=== PATIENT | male | born 1950 | race Caucasian/White ===

== ENCOUNTER 2018-12-16 07:19 | Outpatient (CLI) | payer MEDICARE, SELFPAY ==
--- NOTE | 2018-12-16 | ECHO_ITS ---
Patient Info Name: Del Schmitz Age: 68 years : 1950 Gender: Male Ht: 72 in Wt: 250 lbs BSA: 2.44 m2 HR: 66 bpm BP: 160 / 83 mmHg Technical Quality: Good Exam Date: 12/16/2018 8:01 AM Exam Location: [facility] Patient Status: Outpatient Admit Date: 12/16/2018 Staff Ordering Physician: Annamaira Rojas MD Machine Splitter: Emili Raymond RDCS Attending Provider: Annamaria Rojas MD Referring Physician: Crystal FROST; Exam Type: CA echo doppler color flow Study Info Indications R06.00 - Dyspnea, unspecified Complete two-dimensional, color flow and Doppler transthoracic echocardiogram is performed. Summary 1. Left ventricular chamber dimension is normal. 2. Left ventricular systolic function is normal, estimated at 65-70%. 3. There is mildly increased left ventricular wall thickness. 4. The left ventricular diastolic function is normal. 5. E/e' 9 is minimally elevated. 6. Global longitudinal strain is abnormal at -13.6%. 7. Left atrial chamber dimension is mildly enlarged. 8. There is mild mitral valve regurgitation. 9. There is trace tricuspid valve regurgitation. 10. No pulmonary hypertension, estimated pulmonary arterial systolic pressure is 26 mmHg. 11. There is trace pulmonic regurgitation. Left Ventricle E/e' 9 is minimally elevated. Global longitudinal strain is abnormal at -13.6%. Left ventricular chamber dimension is normal. Left ventricular systolic function is normal, estimated at 65-70%. There is mildly increased left ventricular wall thickness. The left ventricular diastolic function is normal. Right Ventricle Right ventricular chamber dimension is normal. Right ventricular systolic function is normal. Left Atria Left atrial chamber dimension is mildly enlarged. Right Atria Right atrial chamber dimension is normal. Aortic Valve The aortic valve is trileaflet. There is no aortic valve stenosis. There is no aortic valve regurgitation. Pulmonic Valve There is trace pulmonic regurgitation. Mitral Valve There is no mitral valve stenosis. There is mild mitral valve regurgitation. Tricuspid Valve There is trace tricuspid valve regurgitation. No pulmonary hypertension, estimated pulmonary arterial systolic pressure is 26 mmHg. Pericardium/Pleural There is no pericardial effusion. Inferior Vena Cava Normal inferior vena cava with >50% collapse upon inspiration consistent with normal right atrial pressure, 5 mmHg. Aorta The aortic root size at the sinus of Valsalva is normal. Left Ventricular Outflow Tract Name Value Normal LVOT 2D LVOT Diameter 2.0 cm LVOT Doppler LVOT Peak Gradient 7 mmHg LVOT Mean Gradient 4 mmHg LVOT VTI 24 cm LVOT VTI/AV VTI Ratio 0.9 LVOT Stroke Volume 78 ml Pulmonic Valve Name Value Normal
[2018-12-16 08:44] VITALS: PULSE 68; O2SAT 96
[2018-12-16 08:48] VITALS: PULSE 82; O2SAT 92
[2018-12-16 08:50] VITALS: PULSE 86; O2SAT 93
[2018-12-16 08:57] VITALS: PULSE 69; O2SAT 95
--- NOTE | 2018-12-16 09:57 | HOMEO2EVAL ---
Home Oxygen Evaluation RC: Home Oxygen (O2) Evaluation Start: 12/16/18 09:49 Freq: ONCE Status: Active Protocol: RPE Activity Type Activity Date Activity User E-Sign Co-Sign Detail Recorded Client Recorded Date Recorded By Document 12/16/18 08:44 KRM [id number] 12/16/18 09:54 KRM Document 12/16/18 08:48 [email or web address] [id number] 12/16/18 09:54 KRM Document 12/16/18 08:50 [email or web address] [id number] 12/16/18 09:54 KRM Document 12/16/18 08:57 [email or web address] [id number] 12/16/18 09:54 KRM 12/16/18 12/16/18 12/16/18 08:44 08:48 08:50 Home O2 Evaluation Test Phase Resting Exercise Exercise Oxygen Delivery Room Air Room Air Room Air Pulse Oximetry (95-100 %) 96 92 L 93 L Pulse Rate (60-100 beats/min) 68 82 86 Activity Tolerance Good Good Ambulation Distance (feet) Treatment Charges O2 Evaluation 12/16/18 08:57 Home O2 Evaluation Test Phase Resting Oxygen Delivery Room Air Pulse Oximetry (95-100 %) 95 Pulse Rate (60-100 beats/min) 69 Activity Tolerance Good Ambulation Distance (feet) 250 Treatment Charges
--- NOTE | 2018-12-16 19:02 | WPDPFTINT ---
PFT Interpretation DOS: 12/16/2018 REASON FOR TESTING: COPD REQUESTING: DR. CABALLERO PULMONARY FUNCTION TESTS RESULTS ARE REPRODUCIBLE. SPIROMETRY: NORMAL FEV1, MILD DECREASE IN FVC 68%. NORMAL FEV1%. NO SIGNIFICANT CHANGE AFTER BRONCHODILATOR. LUNG VOLUMES: NORMAL TOTAL LUNG CAPACITY AND RESIDUAL VOLUME. MILD INCREASE IN RV/TLC RATIO CONSISTENT WITH AIR TRAPPING. NORMAL AIRWAY RESISTANCE. DIFFUSION: MODERATE DECREASE IN DLCO 58%. FLOW VOLUME LOOP: MILD SCOOPING OF THE EXPIRATORY LIMB. IMPRESSION: MILD OBSTRUCTIVE VENTILATORY IMPAIRMENT, MILD AIR TRAPPING AND MODERATE DIFFUSION IMPAIRMENT. NO CHANGE AFTER BRONCHODILATOR. LACK OF RESPONSE TO BRONCHODILATORS SHOULD NOT PRECLUDE USE IF CLINICALLY INDICATED. HANY CABALLERO MD
--- NOTE | 2018-12-20 10:17 | PCRCNOTE ---
NIOX/FENO NOT DONE AT TIME OF VISIT, MACHINE MALFUNCTIONING AT THE TIME
== END 2018-12-16 07:20 | disposition home or self-care (01) ==
PROVIDERS: PCP Internal Medicine; Visit Provider Internal Medicine Critical Care Medicine
DX: J44.9 Chronic obstructive pulmonary disease, unspecified (principal); R94.2 Abnormal results of pulmonary function studies; I34.0 Nonrheumatic mitral (valve) insufficiency
CPT/HCPCS: 93306; 94060; 94618; 94726; 94729

== ENCOUNTER 2019-06-04 07:26 | Inpatient (IN) | payer MEDICARE, SELFPAY ==
[2019-06-04] VITALS (20 sets, daily range): BP systolic 146–185; BP diastolic 59–90; PULSE 54–86; RESP 16–25; TEMP 36.1–36.4; O2SAT 95–99; BMI 34.7
--- NOTE | ~2019-06-04 | XR_ITS ---
EXAMINATION: XR chest 1V portable DATE: 06/06/2019 06:15 INDICATION: Pneumonia TECHNIQUE: frontal view of the chest was obtained. COMPARISON: Chest radiograph dated 06/04/2019 FINDINGS: No interval change in opacities at the bilateral lower lung zones, left greater than right. No pneumo thorax or definitive pleural effusion. Cardiomediastinal silhouette within normal limits accounting f or AP technique. IMPRESSION: 1. Unchanged opacities in the bilateral lower lung zones, left greater than right which could represe nt atelectasis or pneumonia. Reviewed, dictated and finalized at location A. IMPRESSION: 1. Unchanged opacities in the bilateral lower lung zones, left greater than rig ht which could represent atelectasis or pneumonia.
--- NOTE | ~2019-06-04 | US_ITS ---
EXAMINATION: US venous doppler LE EXAM DATE: 06/04/2019 15:54 INDICATION: Elevated d-dimer TECHNIQUE: Multiple grayscale, color flow and Doppler images of the lower extremity deep venous syste ms bilaterally were obtained and reviewed. Comparison is made to prior examination from 05/10/2015. FINDINGS: Right side: The right common femoral, femoral and profunda veins demonstrate normal color flow, respi ratory variation, augmentation and compressibility. Compressibility, color flow confirmed within the right popliteal, posterior tibial, peroneal, and greater saphenous veins. Left side: The left common femoral, femoral and profunda veins demonstrate normal color flow, respira tory variation, augmentation and compressibility. Compressibility, color flow confirmed within the l eft popliteal, posterior tibial, peroneal, and greater saphenous veins. IMPRESSION: 1. No lower extremity deep venous thrombosis bilaterally. Reviewed, dictated and finalized at location A.
--- NOTE | ~2019-06-04 | XR_ITS ---
XR chest 1V portable 06/04/2019 08:33 Indication: Cough, shortness of breath and low oxygen saturation. Procedure: AP portable chest Comparison: Comparison to multiple prior studies sequentially, with oldest reviewed study dated 10/2017. Findings: Cardiomegaly. Bilateral airspace disease. Small pleural effusions. No pneumothorax. No acut e osseous abnormality. Impression: 1: Developing extensive bilateral airspace disease which may represent edema or pneumonia. Reviewed, dictated and finalized at location A. Impression: 1: Developing extensive bilateral airspace disease which may represent edema or pneumonia.
--- NOTE | ~2019-06-04 | XR_ITS ---
XR chest 1V portable 06/07/2019 06:25 Indication: Pneumonia. Shortness of breath Procedure: AP portable chest Comparison: Comparison to multiple prior studies sequentially, with oldest reviewed study dated 04/02. Findings: Cardiomegaly. Interstitial opacities in the perihilar and basilar locations. No pleural eff usion or pneumothorax. No acute osseous abnormality. Impression: 1: Mild bilateral perihilar and basilar interstitial infiltrates which may represent edema or pneumon ia. Reviewed, dictated and finalized at location A. Impression: 1: Mild bilateral perihilar and basilar interstitial infiltrates which may repr esent edema or pneumonia.
--- NOTE | ~2019-06-04 | XR_ITS ---
XR chest 1V portable 06/08/2019 06:31 Indication: Pneumonia Procedure: AP portable chest Comparison: Comparison to multiple prior studies sequentially, with oldest reviewed study dated 08/14. Findings: Borderline heart size. No significant change to perihilar and basilar interstitial infiltra alysia. No pleural effusion or pneumothorax. There is peribronchial thickening. Impression: 1: Stable bilateral interstitial infiltrates which may represent pneumonia or edema. Reviewed, dictated and finalized at location A. Impression: 1: Stable bilateral interstitial infiltrates which may represent pneumonia or e elba.
--- NOTE | 2019-06-04 07:34 | ECG_ITS ---
Measurements Intervals [place] Rate: 54 P: RI: 0 QRS: 52 QRSD: 142 T: 37 QT: 488 QTc: 463 Interpretive Statements ATRIAL FIBRILLATION WITH SLOW VENTRICULAR RESPONSE LEFT BUNDLE BRANCH BLOCK BASELINE ARTIFACT- I, II, III, AVR, AVL, AVF, V1-V6 ABNORMAL ECG Electronically Signed On 06-04-2019 8:34:16 CDT by Richi Giordano D.O.
--- NOTE | 2019-06-04 07:43 | ED.GENADULT ---
HPI - General Adult General Chief complaint: Shortness of Breath/Dyspnea Stated complaint: SOB X 2 WEEKS Source: RN notes reviewed History of Present Illness HPI narrative: Patient presents emergency department from home for shortness of breath. Patient states symptoms have been progressively worsening over the past 3 weeks. States that shortness of breath is worse with exertion. States he has a history of COPD and is normally on 2 L nasal cannula at rest and 4 L with activity. States that he is a former smoker no current tobacco use. He denies any fevers. States he has had a minimal cough that is been nonproductive. Denies any chest pain abdominal pain nausea vomiting or any other symptoms Related Data Home Medications Medication Instructions Recorded Confirmed albuterol sulfate 90 mcg/actuation 1 puff INHALATION Q4H PRN 01/30/19 05/16/19 aerosol inhaler aspirin 81 mg tablet,delayed 81 mg PO DAILY 01/30/19 05/16/19 release fluticasone propionate 50 2 spray NASAL DAILY 01/30/19 05/16/19 mcg/actuation nasal spray,suspension gabapentin 300 mg capsule 300 mg PO TID 01/30/19 05/16/19 insulin glargine U-300 conc 300 45 unit SUB-Q DAILY ml 01/30/19 05/16/19 unit/mL (1.5 mL) subcutaneous pen lorazepam 1 mg tablet 1 mg PO TID PRN 01/30/19 05/16/19 nystatin-triamcinolone 100,000 1 applic TOPICAL BID 01/30/19 05/16/19 unit/g-0.1 % topical cream Allergies Allergy/AdvReac Type Severity Reaction Status Date / Time coconut Allergy Unknown Verified 07/07/15 10:12 Iodinated Contrast Media Allergy Unknown Verified 11/20/18 10:13 Contrast Media Allergy Unknown Uncoded 08/14/18 08:10 Review of Systems Review of Systems: Narrative: Gen.: Denies fevers or chills ENT: Denies congestion Respiratory: See HPI CV: Denies chest pain or palpitations GI: Denies abdominal pain nausea, emesis or diarrhea Musculoskeletal: Denies back pain or muscle pain Neuro: Denies numbness, tingling, weakness or focal weakness Skin: Denies rash Except as documented, all other systems reviewed and negative PMFSH Past Medical History Medical History (Updated 06/04/19 @ 10:51 by Zackery Contreras DO) Atrial fibrillation COPD (chronic obstructive pulmonary disease) Diabetes mellitus Hypertension Family History Family History (Updated 09/03/15 @ 23:19 by DOCTOR UNKNOWN) Mother Family history of malignant neoplasm of breast in first degree relative Father Family history of type 2 diabetes mellitus Other Diabetes mellitus Family history of cardiovascular disease Family history of congestive heart failure Family history of hearing loss Family history of malignant neoplasm Family history of thyroid disease Hypertension Social History Social History (Updated 06/04/19 @ 07:44 by Zackery Contreras DO) Smoking status: Former smoker Smoking end date: 02/05/82 Alcohol intake: never Gender identity (if verbalized by the patient): Male Exam Narrative: Exam Narrative: APPEARANCE: No acute distress, nontoxic, resting in bed EYES: EOMI HEENT: Normocephalic, atraumatic, OMM RESPIRATORY: Mild respiratory distress, wheezing throughout the bilateral lung bustos, no rhonchi or rales CARDIOVASCULAR: Regular rate and rhythm without murmurs rubs or gallops. ABDOMINAL: Soft, nontender, nondistended, no rebound or guarding MUSCULOSKELETAl: Moves all extremities. No clubbing, cyanosis or edema. NEURO: Awake and alert. Following commands, speech normal, no focal deficits SKIN:: Warm, dry. No rashes lesions or abrasions PSYCHIATRIC: Normal affect/mood, Course Course Emergency Course: Discussed with Dr. Lorenzana presentation and work-up. Agrees with admission at this time. Agrees with plan for antibiotics with testing for COVID Discussed with patient and family results of workup and diagnosis. Discussed need for admission. Patient and family understand and agree to current treatment plan Vital Signs Vital signs: Vital
[2019-06-04] MEDS: methylPREDNISolone SOD SUCC 125 MG VIAL IV PUSH (07:45)
[2019-06-04 07:58] LABS: Basophils Absolute Auto 0.1 K/mm3 (0.0-0.1); Basophils Percent Auto 0.4 % (0.2-1.2); Eosinophils Absolute Auto 0.2 K/mm3 (0-0.3); Eosinophils Percent Auto 1.7 % (0-4.4); Hematocrit 35.6 % (42.0-52.0); Hemoglobin 11.4 g/dL (14.0-18.0); Immature Granulocyte Absolute 0.06 K/mm3 (0.00-0.031); Immature Granulocyte Percent A 0.4 % (0-0.5); Lymphocytes Absolute Auto 1.23 K/mm3 (0.9-3.2); Lymphocytes Percent Auto 8.9 % (18.3-44.2); Mean Corpuscular Hemoglobin 25.2 pg (26-34); Mean Corpuscular Volume 78.6 fl (80-100); Mean Platelet Volume 10.7 fl (7.4-10.4); Monocytes Absolute Auto 0.8 K/mm3 (0.1-0.6); Neutrophils Absolute Auto 11.4 K/mm3 (1.3-6.7); Neutrophils Percent Auto 82.6 % (45.5-73.1); Platelet Count Result 246 k/mm3 (150-375); Red Blood Count 4.53 M/mm3 (4.6-6.20); Red Cell Distribution Width 14.6 % (11.5-14.5); White Blood Count 13.8 K/mm3 (4.5-10.0)
[2019-06-04 08:10] LABS: Alveolar/Arterial O2 Gradient 137.7 mmHg; Base Excess ABG 7.1 mEq/l (+/-2.0); Fractional Inspired Oxygen 40 %; HCO3 ABG 33.4 mEq/l (22.0-26.0); Oxygen Content ABG 15.7 %vol (16.0-22.0); Oxyhemoglobin 94.3 % THb (90.0-100.0); PCO2 ABG 55.6 mmHg (35.0-45.0); PO2 ABG 83.6 mmHg (80.0-100.0); PO2 FiO2 Ratio Arterial Blood 2.09 %; Total Hemoglobin 11.8 g/dL (12.0-18.0); pH ABG 7.396 (7.350-7.450)
[2019-06-04 08:10] LABS: Prothrombin Time 13.3 Seconds (11.1-14.7)
[2019-06-04 08:11] LABS: Device NASAL CANNULA; Modified Allen's Test Pass; Site Drawn RIGHT RADIAL
[2019-06-04 08:11] LABS: Lactic Acid Reflex 1.6 mmol/L (0.7-2.1); Partial Thromboplastin Time 32.1 SECONDS (22.3-36.8)
[2019-06-04 08:12] LABS: Blood Urea Nitrogen 18 mg/dL (9-20); Carbon Dioxide 35 mmol/L (22-30); Chloride 88 mmol/L (98-107); Estimated CRCL calculation 96 ml/min; Estimated Glomerular Filt Rate > 60; Glucose 156 mg/dL (75-110); Potassium 4.1 mmol/L (3.4-5.0); Sodium 130 mmol/L (137-145)
[2019-06-04] MEDS: ALBUTEROL SULFATE NEB 2.5 MG/0.5 ML INH 5 MG INHALATION (08:12)
[2019-06-04] MEDS: IPRATROPIUM BR 0.02% INH SOLN 0.5 MG/2.5 ML VIAL INHALATION (08:12)
[2019-06-04 08:23] LABS: Troponin I < 0.012 ng/mL (0.000-0.034)
[2019-06-04 09:10] LABS: NT Pro B Type Natriuretic Pept 828 PG/ML (5-100)
[2019-06-04 09:31] LABS: D Dimer 2.29 ug/mL (<0.48)
--- NOTE | 2019-06-04 10:20 | PC.NURSE ---
Called ICU to give report, per ICU the nurse will call me back because they are rounding.
--- NOTE | 2019-06-04 11:30 | ADMGEN ---
This patient, Del Schmitz, was admitted to Intensive Care Unit-8. Patient/family oriented to hospital policies and general routines including ID bracelet, bed and alarms, visiting hours, pain management, procedures, bathroom and other care routines, personal items, smoking policy, room service/diet, and visiting hours. Valuables list has been completed. Information on how to activate the Rapid Response Team has been discussed. Patient/Family are encouraged to report perceived risks to care and to ask questions if they do not understand what they are told or what they should do.
[2019-06-04] MEDS: methylPREDNISolone SOD SUCC 125 MG VIAL 60 MG IV PUSH ×3 (11:56→23:06)
--- NOTE | 2019-06-04 14:51 | PM.IMHP ---
H&P: HPI History of Present Illness Chief complaint: acute respiratory failure with hypoxia,community- Narrative: Del Schmitz is a 69 year old male who has a past medical history of having COPD and chronic respiratory failure. Patient has chronic respiratory failure. Patient wears oxygen at home 2-4 L per nasal cannula. At rest he wears 2 L and when he is up walking around he wears the 4 L. The patient stated that at 1 time he fell afebrile but has not been running a fever. The patient was swabbed for COVID. Patient has very oximetry will atrial fibrillation and is not on any anticoagulation that I can see on his medication list patient's D-dimer was elevated. 2.29. The patient stated that he became increasingly more short of breath specially with exertion. Patient has been using his inhalers as prescribed. He has a dry cough. He has some generalized weakness. By radiology as developing extensive bilateral airspace disease which may represent edema or pneumonia. Patient's last echo was December of last year which appears to be normal. No pulmonary hypertension EF was within normal limits. The patient has not had any previous history of any PEs or DVTs. In the emergency room the patient was treated for exacerbation of COPD. He was started on Solu-Medrol, a Zithromax and Rocephin. The patient was placed in ICU is IMU patient to rule out COVID as well. Date of service 06/04/2019 Review of Systems Review of Systems: All systems reviewed & are unremarkable except as noted in HPI and below Constitutional: Constitutional: Reports as per HPI and Reports no additional constitutional complaints Eyes: Eyes: Reports as per HPI and Reports no additional eye complaints ENT: Reports system reviewed and no additional complaints, except as documented and Reports Normal hearing present Cardiovascular: Cardiovascular: Reports no additional cardiovascular complaints Respiratory: Respiratory: Reports no additional respiratory complaints and Reports no additional respiratory complaints Gastrointestinal: Gastrointestinal: Reports as per HPI and Reports no additional gastrointestinal complaints Musculoskeletal: Musculoskeletal: Reports no additional musculoskeletal complaints Integumentary/Breasts: Skin/Breast: Reports system reviewed and no additional complaints, except as docu and Reports as per HPI Neurologic: Reports system reviewed and no additional complaints, except as documented, Reports as per HPI and Reports Normal hearing present Psychiatric: Psychiatric: Reports no additional psychiatric complaints and Reports as per HPI Endocrine: Endocrine: Reports no additional endocrine complaints Hematologic/Lymphatic: Hematologic/Lymphatic: Reports no additional hematologic/lymphatic complaints Allergic/Immunologic: Allergic/Immunologic: Reports no additional allergic/immunologic complaints [facility] Past Medical History Medical History (Updated 06/04/19 @ 15:01 by Vandana Ayoub NP) Anxiety Atrial fibrillation Paroxysmal BPH (benign prostatic hyperplasia) COPD (chronic obstructive pulmonary disease) Diabetes mellitus Type 2 History of osteomyelitis Right heel History of pancreatitis Hyperlipidemia No statins just a high-fiber diet. Hypertension Surgical History Surgical History (Updated 06/04/19 @ 15:01 by Vandana Ayoub NP) History of tonsillectomy History of vasectomy Family History Family History Mother Family history of malignant neoplasm of breast in first degree relative Father Family history of type 2 diabetes mellitus Other Diabetes mellitus Family history of cardiovascular disease Family history of congestive heart failure Family history of hearing loss Family history of malignant neoplasm Family history of thyroid disease Hypertension Social History Social History (Updated 06/04/19 @ 15:05 by Vandana Ayoub NP) Social History: The
[2019-06-04] MEDS: DULOXETINE HCL 30 MG CAPSULE.DR 90 MG PO (17:03)
[2019-06-04] MEDS: GABAPENTIN 300 MG CAPSULE PO (17:03)
[2019-06-04] MEDS: carvediloL 25 MG TABLET PO (17:03)
[2019-06-04] MEDS: GENTAMICIN SULFATE 0.3% OP SOL 5 ML BTL 1 DROP EACH EYE ×3 (17:04→23:06)
[2019-06-04] MEDS: INSULIN ASPART (*BKC) 100 UNITS/ML SUB-Q (17:10)
[2019-06-04 17:31] LABS: Glucose Point of Care 259 (65-105)
--- NOTE | 2019-06-04 17:43 | PHAR ---
Home medication Anahi Valentin 62.5mcg/25mcg seen in pharmacy and returned to ICU
[2019-06-04] MEDS: CODEINE SULFATE 30 MG TABLET PO (18:23)
[2019-06-04] MEDS: IMIPRAMINE HCL 25 MG TABLET 50 MG PO (20:24)
[2019-06-04] MEDS: TOLNAFTATE 1% POWDER 45 GM BTL 1 APPLIC TOPICAL (20:24)
[2019-06-04] MEDS: FLUTICASONE PROPIONATE 0.05% NA SPR 16 GM BTL (*BKC) 1 SPRAY NASAL (20:24)
[2019-06-04 20:42] LABS: Glucose Point of Care 295 (65-105)
[2019-06-05] VITALS (15 sets, daily range): BP systolic 131–168; BP diastolic 68–84; PULSE 61–109; RESP 17–26; TEMP 36.3–37.2; O2SAT 90–100
[2019-06-05 04:46] LABS: Basophils Percent Auto 0.1 % (0.2-1.2); Hematocrit 33.7 % (42.0-52.0); Immature Granulocyte Absolute 0.11 K/mm3 (0.00-0.031); Immature Granulocyte Percent A 0.8 % (0-0.5); Lymphocytes Absolute Auto 0.83 K/mm3 (0.9-3.2); Mean Corpuscular HGB Conc 32.6 g/dl (32-36); Mean Corpuscular Hemoglobin 25.2 pg (26-34); Mean Corpuscular Volume 77.3 fl (80-100); Mean Platelet Volume 10.4 fl (7.4-10.4); Monocytes Absolute Auto 0.3 K/mm3 (0.1-0.6); Monocytes Percent Auto 2.2 % (2.6-8.5); Neutrophils Absolute Auto 12.6 K/mm3 (1.3-6.7); Neutrophils Percent Auto 90.9 % (45.5-73.1); Platelet Count Result 261 k/mm3 (150-375); Red Blood Count 4.36 M/mm3 (4.6-6.20); Red Cell Distribution Width 14.1 % (11.5-14.5); White Blood Count 13.9 K/mm3 (4.5-10.0)
[2019-06-05 05:31] LABS: Alanine Aminotransferase 20 U/L (4-50); Albumin Level 3.8 g/dL (3.5-5.1); Alkaline Phosphatase 114 U/L (38-126); Aspartate Amino Transferase 20 U/L (17-59); Blood Urea Nitrogen 15 mg/dL (9-20); Calcium 8.5 mg/dL (8.4-10.2); Carbon Dioxide 32 mmol/L (22-30); Chloride 87 mmol/L (98-107); Estimated CRCL calculation 124 ml/min; Estimated Glomerular Filt Rate > 60; Glucose 235 mg/dL (75-110); Lactate Dehydrogenase 371 U/L (313-618); Sodium 127 mmol/L (137-145)
[2019-06-05] MEDS: methylPREDNISolone SOD SUCC 125 MG VIAL 60 MG IV PUSH ×3 (06:16→17:59)
[2019-06-05] MEDS: GENTAMICIN SULFATE 0.3% OP SOL 5 ML BTL 1 DROP EACH EYE ×4 (06:17→22:43)
[2019-06-05 07:26] LABS: Potassium 3.9 mmol/L (3.4-5.0)
[2019-06-05] MEDS: ASPIRIN 81 MG ENTERIC TABLET PO (08:39)
[2019-06-05] MEDS: AMLODIPINE BESYLATE 5 MG TABLET 10 MG PO (08:39)
[2019-06-05] MEDS: TOLNAFTATE 1% POWDER 45 GM BTL 1 APPLIC TOPICAL ×2 (08:39→21:32)
[2019-06-05] MEDS: carvediloL 25 MG TABLET PO ×2 (08:40→17:58)
[2019-06-05] MEDS: FLUTICASONE PROPIONATE 0.05% NA SPR 16 GM BTL (*BKC) 1 SPRAY NASAL ×2 (08:41→20:54)
[2019-06-05] MEDS: ENOXAPARIN 120 MG/0.8 ML SYRINGE 112 MG SUB-Q ×2 (08:41→20:52)
[2019-06-05] MEDS: GABAPENTIN 300 MG CAPSULE PO ×3 (08:42→17:58)
[2019-06-05] MEDS: hydroCHLOROthiazide 12.5 MG CAPSULE PO (08:43)
[2019-06-05] MEDS: PANTOPRAZOLE 40 MG TABLET PO (08:43)
[2019-06-05] MEDS: IRBESARTAN 150 MG TABLET 300 MG PO (08:43)
[2019-06-05] MEDS: INSULIN ASPART (*BKC) 100 UNITS/ML SUB-Q ×3 (09:06→17:59)
[2019-06-05] MEDS: INSULIN GLARGINE (*BKC) 100 UNITS/ML 45 UNITS SUB-Q (09:07)
[2019-06-05 09:32] LABS: D Dimer 1.91 ug/mL (<0.48)
[2019-06-05 10:47] LABS: Glucose Point of Care 213 (65-105)
[2019-06-05] MEDS: CODEINE SULFATE 30 MG TABLET PO ×2 (11:39→20:56)
[2019-06-05 12:16] LABS: Glucose Point of Care 342 (65-105)
[2019-06-05 16:49] LABS: Glucose Point of Care 283 (65-105)
--- NOTE | 2019-06-05 17:54 | PM.IMPN ---
Progress Note: A&P Assessment and Plan (1) Acute respiratory failure with hypoxia: Code(s): J96.01 - Acute respiratory failure with hypoxia Status: Acute Assessment and Plan: Possible COPD exacerbation. The patient was started on Solu-Medrol. Will continue with his inhalers. His oxygen demand has been increased to 5 L per nasal cannula. Could also be just community-acquired pneumonia it could be COVID. Patient is in the ICU as a IMU patient. Patient had a elevated D-dimer so will check an V/Q scan 06/05/19 17:54 Patient is 69-year-old male with history of COPD chronic respiratory failure on home oxygen he uses 2 L at rest and 4 L with exertion he presented emergency department with a complaint of dry cough shortness of breath suspect the patient may be positive COVID-19 as he has lymphopenia elevated CRP and D-dimer patient is being tested for COVID-19 and placed on isolation, since patient highly suspected to have a COVID-19 and is elevated D-dimer we have placed the patient on Lovenox 1 milligram/kilogram, and present patient is feeling much better compared to when he arrived not a short of breath and cough is also improving he denies any fever or chills. (2) Suspected COVID-19 virus infection: Code(s): R68.89 - Other general symptoms and signs Status: Acute Assessment and Plan: Patient is on a Zithromax and Rocephin. I will check CRP and LDH. Hopefully are covid 19 swab results will come back tomorrow. (3) COPD (chronic obstructive pulmonary disease): Code(s): J44.9 - Chronic obstructive pulmonary disease, unspecified Status: Acute Assessment and Plan: Continue with inhalers and he was placed on Solu-Medrol. Will try to minimize use of steroid concern with COVID-19 (4) Benign essential hypertension: Code(s): I10 - Essential (primary) hypertension Status: Acute Assessment and Plan: Continue with Coreg, Norvasc, and Avapro (5) Depression: Code(s): F32.9 - Major depressive disorder, single episode, unspecified Status: Acute Assessment and Plan: Continue with duloxetine (6) BPH (benign prostatic hyperplasia): Code(s): N40.0 - Benign prostatic hyperplasia without lower urinary tract symptoms Status: Chronic Assessment and Plan: Continue with current treatment. (7) Anxiety: Code(s): F41.9 - Anxiety disorder, unspecified Status: Acute Assessment and Plan: P.r.n. lorazepam (8) Atrial fibrillation: Code(s): I48.91 - Unspecified atrial fibrillation Status: Acute Assessment and Plan: Patient is not on any anticoagulation and is rate controlled. He is in a sinus rhythm. Continue with Coreg Subjective Date/time seen: 06/05/19 17:54 Patient is 69-year-old male with history of COPD chronic respiratory failure on home oxygen he uses 2 L at rest and 4 L with exertion he presented emergency department with a complaint of dry cough shortness of breath suspect the patient may be positive COVID-19 as he has lymphopenia elevated CRP and D-dimer patient is being tested for COVID-19 and placed on isolation, since patient highly suspected to have a COVID-19 and is elevated D-dimer we have placed the patient on Lovenox 1 milligram/kilogram, and present patient is feeling much better compared to when he arrived not a short of breath and cough is also improving he denies any fever or chills. Review of Systems Review of Systems: All systems reviewed & are unremarkable except as noted in HPI and below Exam Narrative: Exam Narrative: Patient was seen but not examined his temperature is 98.6?, pulse is 80, respiratory 22, pulse ox is 97% at 5 L at rest, his blood pressure is 131/68 Const: General: comfortable and no acute distress HENMT: General nose exam: Normal nares present Eyes: Sclera: sclerae normal Neck: Other: No retraction Resp: Effort & Inspection: normal respiratory effort GI:
[2019-06-05] MEDS: DULOXETINE HCL 30 MG CAPSULE.DR 90 MG PO (17:57)
[2019-06-05 20:51] LABS: Glucose Point of Care 271 (65-105)
[2019-06-05] MEDS: IMIPRAMINE HCL 25 MG TABLET 50 MG PO (20:54)
[2019-06-05] MEDS: LORAZEPAM 1 MG TABLET PO (22:53)
[2019-06-06] VITALS (14 sets, daily range): BP systolic 155–172; BP diastolic 74–99; PULSE 82–98; RESP 16–22; TEMP 36.6–37.2; O2SAT 93–100
[2019-06-06] MEDS: methylPREDNISolone SOD SUCC 125 MG VIAL 60 MG IV PUSH ×4 (01:15→17:17)
[2019-06-06] MEDS: GENTAMICIN SULFATE 0.3% OP SOL 5 ML BTL 1 DROP EACH EYE ×4 (05:03→22:11)
[2019-06-06 05:42] LABS: D Dimer 1.51 ug/mL (<0.48)
[2019-06-06 05:45] LABS: Alanine Aminotransferase 29 U/L (4-50); Albumin Level 3.8 g/dL (3.5-5.1); Alkaline Phosphatase 111 U/L (38-126); Aspartate Amino Transferase 27 U/L (17-59); Bilirubin,Total 0.8 mg/dL (0.2-1.3); Blood Urea Nitrogen 19 mg/dL (9-20); CRP 1.1 mg/dL (<1.0); Calcium 8.5 mg/dL (8.4-10.2); Carbon Dioxide 33 mmol/L (22-30); Chloride 85 mmol/L (98-107); Estimated CRCL calculation 95 ml/min; Estimated Glomerular Filt Rate > 60; Glucose 248 mg/dL (75-110); Potassium 3.9 mmol/L (3.4-5.0); Sodium 125 mmol/L (137-145)
[2019-06-06 05:50] LABS: Basophils Percent Auto 0.1 % (0.2-1.2); Hematocrit 33.8 % (42.0-52.0); Hemoglobin 11.1 g/dL (14.0-18.0); Immature Granulocyte Absolute 0.19 K/mm3 (0.00-0.031); Immature Granulocyte Percent A 1.1 % (0-0.5); Lymphocytes Absolute Auto 0.78 K/mm3 (0.9-3.2); Lymphocytes Percent Auto 4.6 % (18.3-44.2); Mean Corpuscular HGB Conc 32.8 g/dl (32-36); Mean Corpuscular Hemoglobin 25.5 pg (26-34); Mean Corpuscular Volume 77.5 fl (80-100); Mean Platelet Volume 10.5 fl (7.4-10.4); Monocytes Absolute Auto 0.6 K/mm3 (0.1-0.6); Monocytes Percent Auto 3.6 % (2.6-8.5); Neutrophils Absolute Auto 15.4 K/mm3 (1.3-6.7); Neutrophils Percent Auto 90.6 % (45.5-73.1); Platelet Count Result 279 k/mm3 (150-375); Red Blood Count 4.36 M/mm3 (4.6-6.20); Red Cell Distribution Width 14.4 % (11.5-14.5)
[2019-06-06 08:03] LABS: SARS-CoV-2 RNA PCR Negative
[2019-06-06 08:20] LABS: Glucose Point of Care 238 (65-105)
[2019-06-06] MEDS: AMLODIPINE BESYLATE 5 MG TABLET 10 MG PO (08:42)
[2019-06-06] MEDS: carvediloL 25 MG TABLET PO ×2 (08:43→17:17)
[2019-06-06] MEDS: GABAPENTIN 300 MG CAPSULE PO ×3 (08:43→17:17)
[2019-06-06] MEDS: PANTOPRAZOLE 40 MG TABLET PO (08:43)
[2019-06-06] MEDS: ASPIRIN 81 MG ENTERIC TABLET PO (08:43)
[2019-06-06] MEDS: IRBESARTAN 150 MG TABLET 300 MG PO (08:43)
[2019-06-06] MEDS: hydroCHLOROthiazide 12.5 MG CAPSULE PO (08:43)
[2019-06-06] MEDS: ENOXAPARIN 120 MG/0.8 ML SYRINGE 112 MG SUB-Q ×2 (08:44→22:07)
[2019-06-06] MEDS: INSULIN ASPART (*BKC) 100 UNITS/ML SUB-Q ×3 (08:45→17:17)
[2019-06-06] MEDS: FLUTICASONE PROPIONATE 0.05% NA SPR 16 GM BTL (*BKC) 1 SPRAY NASAL ×2 (08:45→22:08)
[2019-06-06] MEDS: INSULIN GLARGINE (*BKC) 100 UNITS/ML 45 UNITS SUB-Q (08:48)
[2019-06-06] MEDS: CODEINE SULFATE 30 MG TABLET PO ×2 (09:05→19:56)
[2019-06-06] MEDS: TOLNAFTATE 1% POWDER 45 GM BTL 1 APPLIC TOPICAL ×2 (09:05→22:08)
--- NOTE | 2019-06-06 11:29 | PM.IMPN ---
Progress Note: A&P Assessment and Plan (1) Community acquired pneumonia: Qualifiers: Laterality: unspecified laterality Qualified Code(s): J18.9 - Pneumonia, unspecified organism Code(s): J18.9 - Pneumonia, unspecified organism Status: Acute Assessment and Plan: Continue azithromycin and ceftriaxone (2) Acute respiratory failure with hypoxia: Code(s): J96.01 - Acute respiratory failure with hypoxia Status: Acute Assessment and Plan: Continue antibiotics, oxygen, bronchodilators, steroids (3) COPD (chronic obstructive pulmonary disease): Qualifiers: COPD type: COPD with acute lower respiratory infection Qualified Code(s): J44.0 - Chronic obstructive pulmonary disease with (acute) lower respiratory infection Code(s): J44.9 - Chronic obstructive pulmonary disease, unspecified Status: Acute Assessment and Plan: With exacerbation due to pneumonia Continue antibiotics, steroids, bronchodilators, oxygen (4) Suspected COVID-19 virus infection: Code(s): R68.89 - Other general symptoms and signs Status: Acute Assessment and Plan: COVID-19 negative (5) Diabetes mellitus: Qualifiers: Diabetes mellitus type: type 2 Diabetes mellitus shelter insulin use: unspecified tight cooper insulin use status Diabetes mellitus complication status: with hyperglycemia Qualified Code(s): E11.65 - Type 2 diabetes mellitus with hyperglycemia Code(s): E11.9 - Type 2 diabetes mellitus without complications Status: Chronic Assessment and Plan: Continue sliding scale while on steroids 06/05 blood sugars 200s (6) Hypertension: Qualifiers: Hypertension type: unspecified Qualified Code(s): I10 - Essential (primary) hypertension Code(s): I10 - Essential (primary) hypertension Status: Acute Assessment and Plan: Monitor on current regimen (7) Atrial fibrillation: Qualifiers: Atrial fibrillation type: unspecified Qualified Code(s): I48.91 - Unspecified atrial fibrillation Code(s): I48.91 - Unspecified atrial fibrillation Status: Acute Assessment and Plan: INR 2.8 Hold warfarin and follow-up Subjective Date/time seen: 06/06/19 11:29 Interval history: Admitted with pneumonia and respiratory failure. 06/05. Feeling much better. Tolerating diet No fevers or chills. No chest pain. No nausea vomiting or diarrhea or constipation. No swelling. Review of Systems Review of Systems: All systems reviewed & are unremarkable except as noted in HPI and below Exam Narrative: Exam Narrative: HEENT: EOMI, PERRL, sclerae nonicteric, pharyngeal mucosa pink and intact NECK: No JVD CHEST: Coarse breath sounds. Normal effort. HEART: NL S1/S2, regular, no murmur ABDOMEN: BS+, soft, nontender, no mass, no bruits EXTREMITIES: No cyanosis, edema, or clubbing NEUROLOGIC: CN intact and symmetric to inspection. MUSCULOSKELETAL: Tone and strength symmetric. PSYCH: Alert. Oriented to person, place, and time. Objective Data Vital Signs Vital Signs: Vital Signs - 24 hr 06/05/19 12:00 06/05/19 14:00 06/05/19 16:00 Temperature 98.6 F 97.9 F Pulse Rate 82 83 86 Respiratory Rate 22 H 18 Blood Pressure 131/68 151/75 H Pulse Oximetry 97 98 06/05/19 17:58 06/05/19 18:00 06/05/19 20:00 Temperature 98.1 F Pulse Rate 86 87 87 Respiratory Rate 20 Blood Pressure 168/84 H Pulse Oximetry 100 06/05/19 22:00 06/06/19 00:00 06/06/19 02:00 Temperature 99 F Pulse Rate 87 86 83 Respiratory Rate 20 Blood Pressure 166/83 H Pulse Oximetry 93 06/06/19 04:00 06/06/19 06:00 06/06/19 08:00 Temperature 98.6 F 97.8 F Pulse Rate 89 84 84 Respiratory Rate 20 16 Blood Pressure 161/84 H 172/90 H Pulse Oximetry 97 98 06/06/19 08:43 06/06/19 10:00 Temperature Pulse Rate 86 88 Respiratory Rate Blood Pressure Pulse Oximetry
[2019-06-06 12:06] LABS: Glucose Point of Care 371 (65-105)
[2019-06-06 17:05] LABS: Glucose Point of Care 229 (65-105)
[2019-06-06] MEDS: DULOXETINE HCL 30 MG CAPSULE.DR 90 MG PO (17:17)
--- NOTE | 2019-06-06 18:02 | PC.NURSE ---
This patient, Del Schmitz, was transferred to [facility] on 06/06/19 at 1802. Personal belongings sent with patient. Belongings list checked and signed with receiving. Report given to ABHINAV May. Appropriate documentation sent with patient.
--- NOTE | 2019-06-06 18:16 | PC.NURSE ---
This patient, Del Schmitz, was received from IMU on 06/06/19 at 1810. Personal belongings list checked and signed. Patient/family oriented to unit policies and routines
[2019-06-06] MEDS: LORAZEPAM 1 MG TABLET PO (19:59)
[2019-06-06] MEDS: SALINE 0.65% NAS SOLN 44 ML BTL 2 SPRAY NASAL (20:00)
[2019-06-06 20:20] LABS: Glucose Point of Care 323 (65-105)
[2019-06-06 20:20] LABS: Glucose Point of Care 338 (65-105)
[2019-06-06] MEDS: IMIPRAMINE HCL 25 MG TABLET 50 MG PO (21:47)
[2019-06-06] MEDS: INSULIN GLARGINE (*BKC) 100 UNITS/ML 10 UNITS SUB-Q (22:13)
[2019-06-06] MEDS: INSULIN ASPART (*BKC) 100 UNITS/ML 10 UNITS SUB-Q (22:14)
[2019-06-07] VITALS (10 sets, daily range): BP systolic 145–178; BP diastolic 62–92; PULSE 70–92; RESP 18–20; TEMP 36.6–36.9; O2SAT 94–98
[2019-06-07] MEDS: methylPREDNISolone SOD SUCC 125 MG VIAL 60 MG IV PUSH ×3 (00:24→12:54)
[2019-06-07 00:41] LABS: Glucose Point of Care 324 (65-105)
[2019-06-07 01:26] LABS: Glucose Point of Care 287 (65-105)
[2019-06-07] MEDS: GENTAMICIN SULFATE 0.3% OP SOL 5 ML BTL 1 DROP EACH EYE ×4 (06:27→19:30)
[2019-06-07 06:49] LABS: Glucose Point of Care 254 (65-105)
[2019-06-07 07:07] LABS: Basophils Percent Auto 0.1 % (0.2-1.2); Hematocrit 33.6 % (42.0-52.0); Immature Granulocyte Percent A 0.7 % (0-0.5); Lymphocytes Absolute Auto 0.76 K/mm3 (0.9-3.2); Lymphocytes Percent Auto 5.5 % (18.3-44.2); Mean Corpuscular HGB Conc 32.7 g/dl (32-36); Mean Corpuscular Hemoglobin 25.2 pg (26-34); Mean Corpuscular Volume 77.1 fl (80-100); Monocytes Absolute Auto 0.6 K/mm3 (0.1-0.6); Monocytes Percent Auto 4.3 % (2.6-8.5); Neutrophils Absolute Auto 12.5 K/mm3 (1.3-6.7); Neutrophils Percent Auto 89.4 % (45.5-73.1); Platelet Count Result 295 k/mm3 (150-375); Red Blood Count 4.36 M/mm3 (4.6-6.20); Red Cell Distribution Width 14.3 % (11.5-14.5); White Blood Count 13.9 K/mm3 (4.5-10.0)
[2019-06-07 07:25] LABS: Alanine Aminotransferase 38 U/L (4-50); Albumin Level 3.6 g/dL (3.5-5.1); Alkaline Phosphatase 101 U/L (38-126); Aspartate Amino Transferase 31 U/L (17-59); Bilirubin,Total 0.7 mg/dL (0.2-1.3); Blood Urea Nitrogen 23 mg/dL (9-20); Calcium 8.5 mg/dL (8.4-10.2); Carbon Dioxide 36 mmol/L (22-30); Chloride 84 mmol/L (98-107); Estimated CRCL calculation 125 ml/min; Estimated Glomerular Filt Rate > 60; Glucose 244 mg/dL (75-110); Potassium 3.9 mmol/L (3.4-5.0); Sodium 126 mmol/L (137-145)
[2019-06-07 08:46] LABS: Glucose Point of Care 229 (65-105)
[2019-06-07] MEDS: INSULIN ASPART (*BKC) 100 UNITS/ML SUB-Q ×3 (09:09→17:09)
[2019-06-07] MEDS: AMLODIPINE BESYLATE 5 MG TABLET 10 MG PO (09:10)
[2019-06-07] MEDS: PANTOPRAZOLE 40 MG TABLET PO (09:10)
[2019-06-07] MEDS: IRBESARTAN 150 MG TABLET 300 MG PO (09:11)
[2019-06-07] MEDS: hydroCHLOROthiazide 12.5 MG CAPSULE PO (09:11)
[2019-06-07] MEDS: GABAPENTIN 300 MG CAPSULE PO ×3 (09:11→17:11)
[2019-06-07] MEDS: ENOXAPARIN 120 MG/0.8 ML SYRINGE 112 MG SUB-Q (09:12)
[2019-06-07] MEDS: carvediloL 25 MG TABLET PO ×2 (09:13→17:14)
[2019-06-07] MEDS: TOLNAFTATE 1% POWDER 45 GM BTL 1 APPLIC TOPICAL ×2 (09:15→20:31)
[2019-06-07] MEDS: FLUTICASONE PROPIONATE 0.05% NA SPR 16 GM BTL (*BKC) 1 SPRAY NASAL ×2 (09:15→20:30)
[2019-06-07] MEDS: ASPIRIN 81 MG ENTERIC TABLET PO (09:16)
[2019-06-07] MEDS: CODEINE SULFATE 30 MG TABLET PO ×2 (09:18→20:34)
[2019-06-07] MEDS: INSULIN GLARGINE (*BKC) 100 UNITS/ML 45 UNITS SUB-Q (09:20)
[2019-06-07 12:33] LABS: Glucose Point of Care 336 (65-105)
--- NOTE | 2019-06-07 12:34 | PM.IMPN ---
Progress Note: A&P Assessment and Plan (1) Community acquired pneumonia: Qualifiers: Laterality: unspecified laterality Qualified Code(s): J18.9 - Pneumonia, unspecified organism Code(s): J18.9 - Pneumonia, unspecified organism Status: Acute Assessment and Plan: Continue azithromycin and ceftriaxone (2) Acute respiratory failure with hypoxia: Code(s): J96.01 - Acute respiratory failure with hypoxia Status: Acute Assessment and Plan: Continue antibiotics, oxygen, bronchodilators, steroids (3) COPD (chronic obstructive pulmonary disease): Qualifiers: COPD type: COPD with acute lower respiratory infection Qualified Code(s): J44.0 - Chronic obstructive pulmonary disease with (acute) lower respiratory infection Code(s): J44.9 - Chronic obstructive pulmonary disease, unspecified Status: Acute Assessment and Plan: With exacerbation due to pneumonia Continue antibiotics, steroids, bronchodilators, oxygen (4) Suspected COVID-19 virus infection: Code(s): R68.89 - Other general symptoms and signs Status: Acute Assessment and Plan: COVID-19 negative (5) Diabetes mellitus: Qualifiers: Diabetes mellitus type: type 2 Diabetes mellitus 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 Diabetes mellitus complication status: with hyperglycemia Qualified Code(s): E11.65 - Type 2 diabetes mellitus with hyperglycemia Code(s): E11.9 - Type 2 diabetes mellitus without complications Status: Chronic Assessment and Plan: Continue sliding scale while on steroids 5/2 blood sugars 240s to 336 Transitioned oral steroids (6) Hypertension: Qualifiers: Hypertension type: unspecified Qualified Code(s): I10 - Essential (primary) hypertension Code(s): I10 - Essential (primary) hypertension Status: Acute Assessment and Plan: Monitor on current regimen (7) Atrial fibrillation: Qualifiers: Atrial fibrillation type: unspecified Qualified Code(s): I48.91 - Unspecified atrial fibrillation Code(s): I48.91 - Unspecified atrial fibrillation Status: Acute Assessment and Plan: 06/06 INR 1.0 Stop enoxaparin and begin apixaban Subjective Date/time seen: 06/07/19 12:34 Interval history: Admitted with pneumonia and respiratory failure. 5/2. Feeling a little better every day. Tolerating diet No fevers or chills. No chest pain. No nausea vomiting or diarrhea or constipation. No swelling. Review of Systems Review of Systems: All systems reviewed & are unremarkable except as noted in HPI and below Exam Narrative: Exam Narrative: HEENT: EOMI, PERRL, sclerae nonicteric, pharyngeal mucosa pink and intact NECK: No JVD CHEST: Coarse breath sounds. Normal effort. HEART: NL S1/S2, regular, no murmur ABDOMEN: BS+, soft, nontender, no mass, no bruits EXTREMITIES: No cyanosis, edema, or clubbing NEUROLOGIC: CN intact and symmetric to inspection. MUSCULOSKELETAL: Tone and strength symmetric. PSYCH: Alert. Oriented to person, place, and time. Objective Data Vital Signs Vital Signs: Vital Signs - 24 hr 06/06/19 14:38 06/06/19 15:22 06/06/19 16:00 Temperature 98 F Pulse Rate 82 Respiratory Rate 22 H Blood Pressure 155/99 H Pulse Oximetry 98 96 94 06/06/19 17:17 06/06/19 18:38 06/06/19 22:00 Temperature 98.7 F 98.5 F Pulse Rate 98 86 87 Respiratory Rate 18 20 Blood Pressure 166/76 H 172/88 H Pulse Oximetry 95 94 06/07/19 02:00 06/07/19 06:00 06/07/19 09:13 Temperature 97.8 F 98.1 F Pulse Rate 81 80 72 Respiratory Rate 18 18 Blood Pressure 159/82 H 150/62 H Pulse Oximetry 95 94 06/07/19 10:00 06/07/19 12:01 Temperature 98.4 F Pulse Rate 70 Respiratory Rate 18 Blood Pressure 145/70 H Pulse Oximetry 96 97 Intake/Output Intake/Output: Intake & Output 06/04/19 06/05/19 06/06/19 05/0
[2019-06-07] MEDS: POTASSIUM CHLORIDE 10 MEQ TABLET.ER PO (17:12)
[2019-06-07 17:53] LABS: Glucose Point of Care 332 (65-105)
[2019-06-07] MEDS: DULOXETINE HCL 30 MG CAPSULE.DR 90 MG PO (18:49)
[2019-06-07] MEDS: IMIPRAMINE HCL 25 MG TABLET 50 MG PO (20:30)
[2019-06-07] MEDS: APIXABAN 5 MG TABLET PO (20:30)
[2019-06-07] MEDS: SALINE 0.65% NAS SOLN 44 ML BTL 2 SPRAY NASAL (20:31)
[2019-06-07] MEDS: INSULIN ASPART (*BKC) 100 UNITS/ML 8 UNITS SUB-Q (21:20)
[2019-06-07 21:37] LABS: Glucose Point of Care 392 (65-105)
[2019-06-08] VITALS (11 sets, daily range): BP systolic 155–180; BP diastolic 71–82; PULSE 64–80; RESP 16–20; TEMP 36.5–36.7; O2SAT 96–98
[2019-06-08 00:42] LABS: Glucose Point of Care 278 (65-105)
[2019-06-08 06:16] LABS: Basophils Percent Auto 0.1 % (0.2-1.2); Hematocrit 34.3 % (42.0-52.0); Hemoglobin 11.3 g/dL (14.0-18.0); Immature Granulocyte Absolute 0.12 K/mm3 (0.00-0.031); Immature Granulocyte Percent A 0.9 % (0-0.5); Lymphocytes Absolute Auto 1.16 K/mm3 (0.9-3.2); Lymphocytes Percent Auto 8.8 % (18.3-44.2); Mean Corpuscular HGB Conc 32.9 g/dl (32-36); Mean Corpuscular Hemoglobin 25.4 pg (26-34); Mean Corpuscular Volume 77.1 fl (80-100); Mean Platelet Volume 10.3 fl (7.4-10.4); Monocytes Absolute Auto 1.3 K/mm3 (0.1-0.6); Monocytes Percent Auto 9.7 % (2.6-8.5); Neutrophils Absolute Auto 10.7 K/mm3 (1.3-6.7); Neutrophils Percent Auto 80.5 % (45.5-73.1); Platelet Count Result 298 k/mm3 (150-375); Red Blood Count 4.45 M/mm3 (4.6-6.20); Red Cell Distribution Width 14.3 % (11.5-14.5); White Blood Count 13.2 K/mm3 (4.5-10.0)
[2019-06-08 06:21] LABS: Glucose Point of Care 199 (65-105)
[2019-06-08] MEDS: PANTOPRAZOLE 40 MG TABLET PO (06:28)
[2019-06-08] MEDS: GENTAMICIN SULFATE 0.3% OP SOL 5 ML BTL 1 DROP EACH EYE ×4 (06:29→20:16)
[2019-06-08 06:37] LABS: Alanine Aminotransferase 44 U/L (4-50); Albumin Level 3.4 g/dL (3.5-5.1); Alkaline Phosphatase 97 U/L (38-126); Aspartate Amino Transferase 27 U/L (17-59); Bilirubin,Total 0.6 mg/dL (0.2-1.3); Blood Urea Nitrogen 20 mg/dL (9-20); Calcium 8.4 mg/dL (8.4-10.2); Carbon Dioxide 38 mmol/L (22-30); Chloride 87 mmol/L (98-107); Estimated CRCL calculation 125 ml/min; Estimated Glomerular Filt Rate > 60; Glucose 212 mg/dL (75-110); Potassium 3.7 mmol/L (3.4-5.0); Sodium 128 mmol/L (137-145)
[2019-06-08] MEDS: INSULIN GLARGINE (*BKC) 100 UNITS/ML 45 UNITS SUB-Q (08:38)
[2019-06-08] MEDS: AMLODIPINE BESYLATE 5 MG TABLET 10 MG PO (08:42)
[2019-06-08] MEDS: predniSONE 20 MG TABLET 60 MG PO (08:43)
[2019-06-08] MEDS: IRBESARTAN 150 MG TABLET 300 MG PO (08:43)
[2019-06-08] MEDS: APIXABAN 5 MG TABLET PO (08:43)
[2019-06-08] MEDS: ASPIRIN 81 MG ENTERIC TABLET PO (08:44)
[2019-06-08] MEDS: GABAPENTIN 300 MG CAPSULE PO ×3 (08:44→17:46)
[2019-06-08] MEDS: FLUTICASONE PROPIONATE 0.05% NA SPR 16 GM BTL (*BKC) 1 SPRAY NASAL ×2 (08:44→20:16)
[2019-06-08] MEDS: TOLNAFTATE 1% POWDER 45 GM BTL 1 APPLIC TOPICAL ×2 (08:45→20:18)
[2019-06-08] MEDS: carvediloL 25 MG TABLET PO ×2 (08:45→17:47)
[2019-06-08 09:55] LABS: Creatinine Urine 66.5 mg/dL
[2019-06-08 09:57] LABS: Sodium Urine Random 30 meq/L
--- NOTE | 2019-06-08 11:36 | P.PNIM_ITS ---
Progress Note: A&P Assessment and Plan (1) Community acquired pneumonia: Qualifiers: Laterality: unspecified laterality Qualified Code(s): J18.9 - Pneumonia, unspecified organism Code(s): J18.9 - Pneumonia, unspecified organism Status: Acute Assessment and Plan: * Continue azithromycin and ceftriaxone (2) Acute respiratory failure with hypoxia: Code(s): J96.01 - Acute respiratory failure with hypoxia Status: Acute Assessment and Plan: * Continue antibiotics, oxygen, bronchodilators, steroids (3) COPD (chronic obstructive pulmonary disease): Qualifiers: COPD type: COPD with acute lower respiratory infection Qualified Code(s): J44.0 - Chronic obstructive pulmonary disease with (acute) lower respiratory infection Code(s): J44.9 - Chronic obstructive pulmonary disease, unspecified Status: Acute Assessment and Plan: * With exacerbation due to pneumonia * Continue antibiotics, steroids, bronchodilators, oxygen (4) Suspected COVID-19 virus infection: Code(s): R68.89 - Other general symptoms and signs Status: Acute Assessment and Plan: * COVID-19 negative (5) Diabetes mellitus: Qualifiers: Diabetes mellitus type: type 2 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 Diabetes mellitus complication status: with hyperglycemia Qualified Code(s): E11.65 - Type 2 diabetes mellitus with hyperglycemia Code(s): E11.9 - Type 2 diabetes mellitus without complications Status: Chronic Assessment and Plan: * Continue sliding scale while on steroids * 5/2 blood sugars 240s to 336 * Transitioned oral steroids (6) Hypertension: Qualifiers: Hypertension type: unspecified Qualified Code(s): I10 - Essential (primary) hypertension Code(s): I10 - Essential (primary) hypertension Status: Acute Assessment and Plan: * Monitor on current regimen (7) Hyponatremia: Code(s): E87.1 - Hypo-osmolality and hyponatremia Status: Acute Assessment and Plan: * 5/3 Na improved to 128 * FENA pending (8) Atrial fibrillation: Qualifiers: Atrial fibrillation type: unspecified Qualified Code(s): I48.91 - Unspecified atrial fibrillation Code(s): I48.91 - Unspecified atrial fibrillation Status: Acute Assessment and Plan: * 5/2 INR 1.0 * Xarelto 20mg q pm Subjective Date/time seen: 06/08/19 11:36 Interval history: Admitted with pneumonia and respiratory failure. 06/07. Tired Tolerating diet No fevers or chills. No chest pain. No nausea vomiting or diarrhea or constipation. No swelling. Review of Systems Review of Systems: All systems reviewed & are unremarkable except as noted in HPI and below Exam Narrative: Exam Narrative: HEENT: EOMI, PERRL, sclerae nonicteric, pharyngeal mucosa pink and intact NECK: No JVD CHEST: Coarse breath sounds. Normal effort. HEART: NL S1/S2, regular, no murmur ABDOMEN: BS+, soft, nontender, no mass, no bruits EXTREMITIES: No cyanosis, edema, or clubbing NEUROLOGIC: CN intact and symmetric to inspection. MUSCULOSKELETAL: Tone and strength symmetric. PSYCH: Drowys, but arouses. Oriented. Objective Data Vital Signs Vital Signs: Vital Signs - 24 hr 06/07/19 12:01 06/07/19 14:00 06/07/19 17:14 Temperature 98.1 F Pulse Rate 74 92 Respiratory Rate 18
--- NOTE | 2019-06-08 11:36 | PM.IMPN ---
Progress Note: A&P Assessment and Plan (1) Community acquired pneumonia: Qualifiers: Laterality: unspecified laterality Qualified Code(s): J18.9 - Pneumonia, unspecified organism Code(s): J18.9 - Pneumonia, unspecified organism Status: Acute Assessment and Plan: Continue azithromycin and ceftriaxone (2) Acute respiratory failure with hypoxia: Code(s): J96.01 - Acute respiratory failure with hypoxia Status: Acute Assessment and Plan: Continue antibiotics, oxygen, bronchodilators, steroids (3) COPD (chronic obstructive pulmonary disease): Qualifiers: COPD type: COPD with acute lower respiratory infection Qualified Code(s): J44.0 - Chronic obstructive pulmonary disease with (acute) lower respiratory infection Code(s): J44.9 - Chronic obstructive pulmonary disease, unspecified Status: Acute Assessment and Plan: With exacerbation due to pneumonia Continue antibiotics, steroids, bronchodilators, oxygen (4) Suspected COVID-19 virus infection: Code(s): R68.89 - Other general symptoms and signs Status: Acute Assessment and Plan: COVID-19 negative (5) Diabetes mellitus: Qualifiers: Diabetes mellitus type: type 2 Diabetes mellitus 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 insulin 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 Diabetes mellitus complication status: with hyperglycemia Qualified Code(s): E11.65 - Type 2 diabetes mellitus with hyperglycemia Code(s): E11.9 - Type 2 diabetes mellitus without complications Status: Chronic Assessment and Plan: Continue sliding scale while on steroids / blood sugars 240s to 336 Transitioned oral steroids (6) Hypertension: Qualifiers: Hypertension type: unspecified Qualified Code(s): I10 - Essential (primary) hypertension Code(s): I10 - Essential (primary) hypertension Status: Acute Assessment and Plan: Monitor on current regimen (7) Hyponatremia: Code(s): E87.1 - Hypo-osmolality and hyponatremia Status: Acute Assessment and Plan: 06/07 Na improved to 128 FENA pending (8) Atrial fibrillation: Qualifiers: Atrial fibrillation type: unspecified Qualified Code(s): I48.91 - Unspecified atrial fibrillation Code(s): I48.91 - Unspecified atrial fibrillation Status: Acute Assessment and Plan: 06/06 INR 1.0 Xarelto 20mg q pm Subjective Date/time seen: 06/08/19 11:36 Interval history: Admitted with pneumonia and respiratory failure. 5/3. Tired Tolerating diet No fevers or chills. No chest pain. No nausea vomiting or diarrhea or constipation. No swelling. Review of Systems Review of Systems: All systems reviewed & are unremarkable except as noted in HPI and below Exam Narrative: Exam Narrative: HEENT: EOMI, PERRL, sclerae nonicteric, pharyngeal mucosa pink and intact NECK: No JVD CHEST: Coarse breath sounds. Normal effort. HEART: NL S1/S2, regular, no murmur ABDOMEN: BS+, soft, nontender, no mass, no bruits EXTREMITIES: No cyanosis, edema, or clubbing NEUROLOGIC: CN intact and symmetric to inspection. MUSCULOSKELETAL: Tone and strength symmetric. PSYCH: Drowys, but arouses. Oriented. Objective Data Vital Signs Vital Signs: Vital Signs - 24 hr 06/07/19 12:01 06/07/19 14:00 06/07/19 17:14 Temperature 98.1 F Pulse Rate 74 92 Respiratory Rate 18 Blood Pressure 154/70 H Pulse Oximetry 97 96 06/07/19 18:01 06/07/19 19:44 06/07/19 21:51 Temperature 97.9 F 97.9 F Pulse Rate 70 84 84 Respiratory Rate 18 18 20 Blood Pressure 147/68 H 178/92 H Pulse Oximetry 96 98 95 06/08/19 02:00 06/08/19 05:38 06/08/19 08:42 Temperature 97.8 F 97.7 F Pulse Rate 73 73 Respiratory Rate 20 20 Blood Pressure 166/81 H 169/82 H Pulse Oximetry 96 96 96 06/08/19 08:45 06/08/19 10:00 Temperature 98.0 F Pulse Rate 68 70 Respiratory Rate 18 Blood Pressure 15
[2019-06-08 12:34] LABS: Glucose Point of Care 187 (65-105)
[2019-06-08 12:35] LABS: Glucose Point of Care 282 (65-105)
[2019-06-08] MEDS: INSULIN ASPART (*BKC) 100 UNITS/ML SUB-Q ×2 (13:03→17:44)
[2019-06-08] MEDS: RIVAROXABAN 20 MG TABLET PO (17:48)
[2019-06-08] MEDS: POTASSIUM CHLORIDE 10 MEQ TABLET.ER PO (17:48)
[2019-06-08] MEDS: DULOXETINE HCL 30 MG CAPSULE.DR 90 MG PO (17:48)
[2019-06-08] MEDS: CODEINE SULFATE 30 MG TABLET PO (17:54)
[2019-06-08 18:01] LABS: Glucose Point of Care 257 (65-105)
[2019-06-08] MEDS: IMIPRAMINE HCL 25 MG TABLET 50 MG PO (20:16)
[2019-06-08 21:01] LABS: Glucose Point of Care 323 (65-105)
[2019-06-09] VITALS (12 sets, daily range): BP systolic 115–174; BP diastolic 71–80; PULSE 55–65; RESP 16–18; TEMP 36.4–36.7; O2SAT 86–98
[2019-06-09 05:57] LABS: Basophils Percent Auto 0.1 % (0.2-1.2); Eosinophils Absolute Auto 0.1 K/mm3 (0-0.3); Eosinophils Percent Auto 0.6 % (0-4.4); Hematocrit 36.7 % (42.0-52.0); Hemoglobin 12.1 g/dL (14.0-18.0); Immature Granulocyte Absolute 0.07 K/mm3 (0.00-0.031); Immature Granulocyte Percent A 0.6 % (0-0.5); Mean Corpuscular Hemoglobin 25.4 pg (26-34); Mean Corpuscular Volume 76.9 fl (80-100); Monocytes Absolute Auto 1.3 K/mm3 (0.1-0.6); Monocytes Percent Auto 10.1 % (2.6-8.5); Neutrophils Absolute Auto 9.1 K/mm3 (1.3-6.7); Neutrophils Percent Auto 72.6 % (45.5-73.1); Platelet Count Result 291 k/mm3 (150-375); Red Blood Count 4.77 M/mm3 (4.6-6.20); White Blood Count 12.5 K/mm3 (4.5-10.0)
[2019-06-09 06:02] LABS: Alanine Aminotransferase 50 U/L (4-50); Albumin Level 3.4 g/dL (3.5-5.1); Alkaline Phosphatase 100 U/L (38-126); Aspartate Amino Transferase 26 U/L (17-59); Bilirubin,Total 0.6 mg/dL (0.2-1.3); Blood Urea Nitrogen 16 mg/dL (9-20); Calcium 8.3 mg/dL (8.4-10.2); Carbon Dioxide 39 mmol/L (22-30); Chloride 89 mmol/L (98-107); Estimated CRCL calculation 125 ml/min; Estimated Glomerular Filt Rate > 60; Glucose 177 mg/dL (75-110); Potassium 3.7 mmol/L (3.4-5.0); Sodium 130 mmol/L (137-145)
[2019-06-09 07:57] LABS: Glucose Point of Care 119 (65-105)
[2019-06-09] MEDS: GENTAMICIN SULFATE 0.3% OP SOL 5 ML BTL 1 DROP EACH EYE ×2 (08:04→12:27)
[2019-06-09] MEDS: CODEINE SULFATE 30 MG TABLET PO (08:19)
[2019-06-09] MEDS: metFORMIN HCL 500 MG TABLET 1000 MG PO (08:34)
[2019-06-09] MEDS: predniSONE 20 MG TABLET 60 MG PO (08:35)
[2019-06-09] MEDS: carvediloL 25 MG TABLET PO (08:37)
[2019-06-09] MEDS: AMLODIPINE BESYLATE 5 MG TABLET 10 MG PO (08:37)
[2019-06-09] MEDS: FLUTICASONE PROPIONATE 0.05% NA SPR 16 GM BTL (*BKC) 1 SPRAY NASAL (08:37)
[2019-06-09] MEDS: GABAPENTIN 300 MG CAPSULE PO ×2 (08:38→12:28)
[2019-06-09] MEDS: IRBESARTAN 150 MG TABLET 300 MG PO (08:39)
[2019-06-09] MEDS: PANTOPRAZOLE 40 MG TABLET PO (08:39)
[2019-06-09] MEDS: SPIRONOLACTONE 25 MG TABLET PO (08:39)
[2019-06-09] MEDS: TOLNAFTATE 1% POWDER 45 GM BTL 1 APPLIC TOPICAL (08:40)
[2019-06-09] MEDS: INSULIN GLARGINE (*BKC) 100 UNITS/ML 45 UNITS SUB-Q (08:43)
--- NOTE | 2019-06-09 10:18 | PM.DS ---
DS: Diagnosis Admitting Diagnosis Admitting Diagnosis: Acute respiratory failure with hypoxia Discharge Diagnosis (1) Community acquired pneumonia: Qualifiers: Laterality: unspecified laterality Qualified Code(s): J18.9 - Pneumonia, unspecified organism Code(s): J18.9 - Pneumonia, unspecified organism Status: Acute Assessment and Plan: Continue azithromycin and ceftriaxone (2) Acute respiratory failure with hypoxia: Code(s): J96.01 - Acute respiratory failure with hypoxia Status: Acute Assessment and Plan: Continue antibiotics, oxygen, bronchodilators, steroids (3) COPD (chronic obstructive pulmonary disease): Qualifiers: COPD type: COPD with acute lower respiratory infection Qualified Code(s): J44.0 - Chronic obstructive pulmonary disease with (acute) lower respiratory infection Code(s): J44.9 - Chronic obstructive pulmonary disease, unspecified Status: Acute Assessment and Plan: With exacerbation due to pneumonia Continue antibiotics, steroids, bronchodilators, oxygen (4) Suspected COVID-19 virus infection: Code(s): R68.89 - Other general symptoms and signs Status: Acute Assessment and Plan: COVID-19 negative (5) Diabetes mellitus: Qualifiers: Diabetes mellitus complication status: with hyperglycemia Diabetes mellitus intermediate insulin use: unspecified intermediate insulin use status Diabetes mellitus type: type 2 Qualified Code(s): E11.65 - Type 2 diabetes mellitus with hyperglycemia Code(s): E11.9 - Type 2 diabetes mellitus without complications Status: Chronic Assessment and Plan: Continue sliding scale while on steroids 5/2 blood sugars 240s to 336 Transitioned oral steroids (6) Hypertension: Qualifiers: Hypertension type: unspecified Qualified Code(s): I10 - Essential (primary) hypertension Code(s): I10 - Essential (primary) hypertension Status: Acute Assessment and Plan: Monitor on current regimen (7) Hyponatremia: Code(s): E87.1 - Hypo-osmolality and hyponatremia Status: Acute Assessment and Plan: / Na improved to 128 FENA pending (8) Atrial fibrillation: Qualifiers: Atrial fibrillation type: unspecified Qualified Code(s): I48.91 - Unspecified atrial fibrillation Code(s): I48.91 - Unspecified atrial fibrillation Status: Acute Assessment and Plan: 5/ INR 1.0 Xarelto 20mg q pm DS: Summary Hospital Course Reason for hospitalization: Cough and dyspnea Hospital Course: Admitted with cough and dyspnea. Bilateral pulmonary infiltrates. COVID-19 RT-PCR testing negative. Improved with empiric base with rim I sent and ceftriaxone, steroids, bronchodilators. Weaned down to his baseline oxygen. Was up and about in his room tolerating diet and wishing to go home by day of discharge. Time Spent with Patient Time attestation: Total time spent providing and/or coordinating discharge services:36 min Exam Narrative: Exam Narrative: HEENT: EOMI, PERRL, sclerae nonicteric, pharyngeal mucosa pink and intact NECK: No JVD CHEST: CTA. NL effort HEART: NL S1/S2, regular, no murmur ABDOMEN: BS+, soft, nontender, no mass, no bruits EXTREMITIES: No cyanosis, edema, or clubbing NEUROLOGIC: CN intact and symmetric to inspection. MUSCULOSKELETAL: Tone and strength symmetric. PSYCH: A&O x4. Alert. DS: Data Data Completed and Pending Labs on day of discharge: Labs from last 24 hours 06/09/19 06/09/19 06/09/19 07:55 05:05 05:05 WBC RBC Hgb Hct MCV MCH MCHC RDW Plt Count MPV Immature Gran % (Auto) Neut % (Auto) Lymph % (Auto) [place] % (Auto) Eos % (Auto) Baso % (Auto) Lymph # (Auto) [place] # (Auto) Eos # (Auto) Baso # (Auto) Abs Immat Gran (auto) Absolute Neuts (auto) Absolute Nucleated RBC Nucleate
[2019-06-09 11:57] LABS: Glucose Point of Care 223 (65-105)
[2019-06-09] MEDS: INSULIN ASPART (*BKC) 100 UNITS/ML SUB-Q (12:24)
--- NOTE | 2019-06-09 13:49 | HOMEO2EVAL ---
Home Oxygen Evaluation RC: Home Oxygen (O2) Evaluation Start: 06/09/19 10:59 Freq: ONCE Status: Active Protocol: RPE Activity Type Activity Date Activity User E-Sign Co-Sign Detail Recorded Client Recorded Date Recorded By Document 06/09/19 13:30 [email or web address] 06/09/19 13:47 NAFISA Document 06/09/19 13:32 [email or web address] 06/09/19 13:49 NAFISA Document 06/09/19 13:34 [email or web address] 06/09/19 13:49 NAFISA Document 06/09/19 13:36 [email or web address] 06/09/19 13:49 NAFISA Document 06/09/19 13:38 [email or web address] 06/09/19 13:49 NAFISA Document 06/09/19 13:40 [email or web address] 06/09/19 13:49 NAFISA Document 06/09/19 13:45 [email or web address] 06/09/19 13:49 NAFISA 06/09/19 06/09/19 06/09/19 13:30 13:32 13:34 Home O2 Evaluation Test Phase Resting Resting Resting Oxygen Delivery Room Air Nasal Cannula Nasal Cannula Oxygen Flow Rate (L/min) 1 2 Pulse Oximetry (90-100 %) 86 L 87 L 94 Treatment Charges 06/09/19 06/09/19 06/09/19 13:36 13:38 13:40 Home O2 Evaluation Test Phase Exercise Exercise Exercise Oxygen Delivery Nasal Cannula Nasal Cannula Nasal Cannula Oxygen Flow Rate (L/min) 2 3 4 Pulse Oximetry (90-100 %) 87 L 87 L 89 L Treatment Charges 06/09/19 13:45 Home O2 Evaluation Test Phase Resting Oxygen Delivery Nasal Cannula Oxygen Flow Rate (L/min) 2 Pulse Oximetry (90-100 %) 95 Treatment Charges O2 Evaluation
--- NOTE | 2019-06-09 13:50 | PCRCNOTE ---
HOME O2 EVAL DONE, NO CHANGES TO CURRENT O2 SETTINGS. 2 L AT REST AND 4 L WITH ACTIVITY. PT HAS [facility] CURRENT DME. I WILL FAX THEM NEW HOME O2 EVAL, WITH NO CHANGES. DAUGHTER WILL BE BRINGING IN PORTABLE O2 FOR D/C HOME. RN AWARE.
== END 2019-06-09 14:25 | disposition home or self-care (01) | DRG 193 ==
LOC: ANHED 09:16 → ANHICU 10:51 → ANHIMU 06-06 11:20 → ANH3MEDSUR 06-07 01:27 → ANHICU 06-11 15:28 → ANHIMU 06-11 15:28
PROVIDERS: Family Medicine; Admitting Provider Internal Medicine; Emergency Provider Emergency Medicine; PCP Internal Medicine; Visit Provider Internal Medicine
DX: J18.9 Pneumonia, unspecified organism (principal); J96.21 Acute and chronic respiratory failure with hypoxia; J44.0 Chronic obstructive pulmonary disease with (acute) lower respiratory infection; J44.1 Chronic obstructive pulmonary disease with (acute) exacerbation; E87.1 Hypo-osmolality and hyponatremia; Z20.828 Contact with and (suspected) exposure to other viral communicable diseases; I48.0 Paroxysmal atrial fibrillation; N40.0 Benign prostatic hyperplasia without lower urinary tract symptoms; E78.5 Hyperlipidemia, unspecified; I10 Essential (primary) hypertension; E11.65 Type 2 diabetes mellitus with hyperglycemia; Z79.82 Long term (current) use of aspirin; Z79.4 Long term (current) use of insulin; Z87.891 Personal history of nicotine dependence; Z99.81 Dependence on supplemental oxygen
CPT/HCPCS: 36415; 36600; 71045; 80048; 80053; 82570; 82728; 82805; 83605; 83615; 83880; 84300; 84443; 84484; 85025; 85380; 85610; 85730; 86140; 87040; 87635; 93005; 93970; 94618; 94640; 96365; 96368; 96375; 99291; A9270; J0456; J0696; J1650; J1815; J2930; J7512; U0003

== ENCOUNTER 2019-06-21 19:11 | Emergency (ER) | payer MEDICARE, BC, SELFPAY ==
[2019-06-21 19:12] VITALS: BP 112/61; PULSE 79; RESP 20; TEMP 37.2; O2SAT 96
--- NOTE | 2019-06-21 19:38 | ED.EPISTAXIS ---
HPI - Epistaxis General Chief complaint: Epistaxis Stated complaint: NOSE BLEED Time Seen by Provider: 06/21/19 19:13 Source: patient Mode of arrival: ambulatory Limitations: no limitations History of Present Illness HPI Narrative: Patient is a 69-year-old male who presents with epistaxis from the right nare noting that it began last night after blowing his nose. Patient states he is currently on Xarelto has been unable to stop the bleeding with pressure. Patient denies bleeding from other sources or URI symptoms on arrival patient denies pain and is otherwise resting comfortably in the room in no distress Related Data Home Medications Medication Instructions Recorded Confirmed fluticasone propionate 50 2 spray NASAL BID 01/30/19 06/04/19 mcg/actuation nasal spray,suspension gabapentin 300 mg capsule 300 mg PO TID 01/30/19 06/04/19 insulin glargine U-300 conc 300 45 unit SUB-Q QAM ml 01/30/19 06/04/19 unit/mL (1.5 mL) subcutaneous pen lorazepam 1 mg tablet 1 mg PO TID PRN 01/30/19 06/04/19 nystatin-triamcinolone 100,000 1 applic TOPICAL BID 01/30/19 06/04/19 unit/g-0.1 % topical cream Anoro Ellipta 1 inhalation INHALATION QPM 06/04/19 06/04/19 amlodipine 10 mg PO QAM 06/04/19 06/04/19 imipramine HCl 50 mg PO QPM 06/04/19 06/04/19 Allergies Allergy/AdvReac Type Severity Reaction Status Date / Time coconut Allergy Unknown Verified 07/07/15 10:12 Iodinated Contrast Media Allergy Unknown Verified 11/20/18 10:13 Contrast Media Allergy Unknown Uncoded 08/14/18 08:10 Review of Systems Review of Systems: All systems reviewed & are unremarkable except as noted in HPI and below PMFSH Past Medical History Medical History Anxiety Atrial fibrillation Paroxysmal BPH (benign prostatic hyperplasia) COPD (chronic obstructive pulmonary disease) Diabetes mellitus Type 2 History of osteomyelitis Right heel History of pancreatitis Hyperlipidemia No statins just a high-fiber diet. Hypertension Surgical History Surgical History History of tonsillectomy History of vasectomy Social History Social History Social History: The patient had 5 children in his is . He lives with his daughter and son-in-law on their 5 children. Patient does not have a power of research attorney and is a full code. Patient quit smoking about 40 years ago. 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 Smoking status: Former smoker Smoking end date: 02/05/82 Alcohol intake: never Substance use: former Substance use type: does not use Gender identity (if verbalized by the patient): Male Spiritual care concerns: No Agree to blood products: Yes Exam Narrative: Exam Narrative: GENERAL: Well-appearing, well-nourished, and in no acute distress. HEAD: Normocephalic, atraumatic. EYES: PERRLA and EOMI. ENT: Nares clear, no rhinorrhea, patient with epistaxis of the right anterior nare along the septum. Mucous membranes moist. Oropharynx without tonsillar hypertrophy exudate or other lesions. EXTREMITIES: Normal range of motion. No edema. SKIN: Warm, dry, no rash. NEURO: No focal deficits. Alert and oriented x3. PSYCH: Normal mood and affect. Course Course Emergency Course: Patient in the room in no distress aware of case findings treatment plan and diagnosis Vital Signs Vital signs: Vital Signs Temperature 98.9 F 06/21/19 19:12 Pulse Rate 79 06/21/19 19:12 Respiratory Rate 06/21/19 19:12 Blood Pressure 112/61 06/21/19 19:12 Pulse Oximetry 96 06/21/19 19:12 Temperature 98.9 F 06/21/19 19:12 Pulse Rate 79 06/21/19 19:12 Respiratory Rate 06/21/19 19:12 Blood Pressure 112/61 06/21/19 19:12 Pulse Oximetry 96 06/21/19 19:12 Procedures Epistaxis Control right: Epistaxis Control Date: 06/21/19
== END 2019-06-21 20:15 | disposition home or self-care (01) ==
PROVIDERS: Emergency Provider Emergency Medicine; PCP Internal Medicine
DX: R04.0 Epistaxis (principal); I48.0 Paroxysmal atrial fibrillation; Z79.01 Long term (current) use of anticoagulants; N40.0 Benign prostatic hyperplasia without lower urinary tract symptoms; E11.9 Type 2 diabetes mellitus without complications; E78.5 Hyperlipidemia, unspecified; I10 Essential (primary) hypertension; F41.9 Anxiety disorder, unspecified; Z79.4 Long term (current) use of insulin; Z87.891 Personal history of nicotine dependence
CPT/HCPCS: 30901; 99282; A9270

== ENCOUNTER 2020-07-15 18:30 | Inpatient (IN) | payer MEDICARE, SELFPAY ==
[2020-07-15] VITALS (30 sets, daily range): BP systolic 138–182; BP diastolic 63–96; PULSE 59–86; RESP 15–28; TEMP 36.8; O2SAT 94–100
--- NOTE | ~2020-07-15 | XR_ITS ---
EXAMINATION: XR chest 1V portable DATE: 07/28/2020 05:33 INDICATION: Pneumonia TECHNIQUE: frontal view of the chest was obtained. COMPARISON: Chest radiograph and CT dated 07/26/2020 FINDINGS: Slight interval improvement in patchy airspace opacities in the bilateral mid and lower lung zones, r ight greater than left, consistent with pneumonia. Very small bilateral pleural effusions. No pneumot horax. Mild cardiomegaly. IMPRESSION: 1. Slight improvement in bilateral patchy airspace opacities consistent with pneumonia. 2. Very small bilateral pleural effusions. 3. Mild cardiomegaly. Reviewed, dictated and finalized at location A. IMPRESSION: 1. Slight improvement in bilateral patchy airspace opacities consistent with pn eumonia. 2. Very small bilateral pleural effusions. 3. Mild cardiomegaly.
--- NOTE | ~2020-07-15 | XR_ITS ---
EXAMINATION: XR chest PICC line INDICATION: PICC insertion TECHNIQUE: Portable AP chest at 1352 hours COMPARISON: 0521 hours FINDINGS: A right upper extremity PICC has been inserted which ends with its tip in the proximal righ t atrium. Patchy bilateral airspace opacities persist with slight improvement. Small pleural effusion s are unchanged. There is no pneumothorax. Cardiomegaly is noted. IMPRESSION: 1. Right upper extremity PICC ending with its tip in the proximal right atrium. 2. Patchy bilateral airspace opacities with slight improvement, likely pneumonia. Reviewed, dictated and finalized at location A. IMPRESSION: 1. Right upper extremity PICC ending with its tip in the proximal right atrium. 2. Patchy bilateral airspace opacities with slight improvement, likely pneumoni a.
--- NOTE | ~2020-07-15 | XR_ITS ---
EXAMINATION: XR chest 2V EXAM DATE: 07/18/2020 09:14 INDICATION: Pneumonia follow-up. TECHNIQUE: Frontal and lateral projections of the chest obtained and reviewed. Comparison is made to prior examination from 07/15/2020. FINDINGS: Persistent right midlung zone and bibasilar predominant acute airspace disease, with develo pment of some left basilar volume loss and increased retrocardiac density probably superimposed subse gmental atelectasis. Small bilateral pleural effusions left greater than right, better visualized tod ay due to the lateral image also obtained. There is no pneumothorax suspected. There are no pleural e ffusions. The cardiomediastinal silhouette is prominent but magnified on this AP technique. There are no osseous abnormalities identified. IMPRESSION: 1. Moderate amount of bilateral pneumonia 2. Developmental superimposed left basilar atelectasis. 3. Small pleural effusions. Reviewed, dictated and finalized at location A.
--- NOTE | ~2020-07-15 | XR_ITS ---
EXAMINATION: XR chest 1V portable DATE: 07/15/2020 19:54 INDICATION: Shortness of breath TECHNIQUE: frontal view of the chest was obtained. COMPARISON: Chest radiograph dated 07/05/2019 FINDINGS: Patchy bilateral airspace opacities sparing the upper lung zones which are most prominent in the righ t mid and left lower lung zones. No pleural effusion or pneumothorax. The cardiomediastinal silhouett e is normal. Moderate thoracic spondylosis. IMPRESSION: 1. Patchy bilateral lung disease which could represent pneumonia, pulmonary edema, atelectasis or ryan e combination thereof. Reviewed, dictated and finalized at location A. IMPRESSION: 1. Patchy bilateral lung disease which could represent pneumonia, pulmonary jana ma, atelectasis or some combination thereof.
--- NOTE | ~2020-07-15 | XR_ITS ---
MODIFIED ESOPHAGRAM HISTORY: Dysphagia. TECHNIQUE: Modified barium esophagram was performed by speech pathologist under radiologist fluorosco pic guidance. This was recorded on tape. The exam was reviewed on 07/20/2020 15:31 CDT. The DAP for this procedure was 3.9 Gycm2. Fluoroscopy time is 3.9 minutes. FINDINGS: Lateral projection of the cervical spine demonstrates normal alignment. There is reduced lingual movement during oral stage with decreased ability to minute delayed barium tablet orally. Pha ryngeal stage within normal limits without evidence for penetration or aspiration. Cervical/esophagea l stage within functional limits.. IMPRESSION: 1: No evidence for penetration or aspiration. 2: Please refer to speech pathologist report for additional detail. Reviewed, dictated and finalized at location A.
--- NOTE | ~2020-07-15 | CT_ITS ---
EXAMINATION: CT brain wo con, CT cervical spine wo con EXAM DATE: 07/19/2020 11:10 INDICATION: Fall on anticoagulation. Posterior head injury. Neck pain. TECHNIQUE: Spiral CT of the head was performed without contrast. Axial, coronal and sagittal images were reviewed. Spiral CT of the cervical spine was performed without contrast. Axial images were rev iewed. Coronal and sagittal reformatted images were also reviewed. The dose-length product (DLP) fo r this examination was 605.33 (accession [id number]), 619.88 (accession [id number]) mGy-cm. The exposure was tailored according to patient size, and iterative reconstruction (ASIR) was used as additional dose reduction technique. Comparison is made to prior examination from 08/19/2015. FINDINGS: HEAD CT: There is no acute intraparenchymal hemorrhage. No evidence of intraparenchymal brain mass l esion. No evidence of acute infarction. There is mild to moderate periventricular and subcortical hy podensity, nonspecific but probably related to small vessel ischemic disease. There is mild to mode rate prominence of the sulci and ventricles related to cerebral atrophy. There is no mass effect o r midline shift. There is no obstructive hydrocephalus suspected. There are no extra-axial collectio ns. There are no acute calvarial fractures. The orbits are unremarkable. Soft tissue is unremarkab le. The visualized sinuses and mastoid air cells are well aerated. CERVICAL CT: Bilateral upper lobe groundglass density airspace disease, right greater than left, and pleural effusions. Could be edema and/or infection. There is no evidence of acute cervical fracture. The odontoid process is intact. Pre-dens space is normal. Prevertebral soft tissue is normal. The re are no soft tissue abnormalities identified. There is no disc space widening or traumatic vertebr al body subluxation suspected. There is moderate to severe disc disease at C5-6, moderate to severe left neural foraminal stenosis. Otherwise mild cervical disc disease. A detailed level by level eval uation of spondylosis can be added as addendum if requested. IMPRESSION: 1. Upper lobe airspace disease edema and/or pneumonia. Pleural effusions. 2. No acute intracranial findings or cervical fracture. 3. Intracranial senescent changes. 4. Cervical spondylosis. Reviewed, dictated and finalized at location B. IMPRESSION: 1. Upper lobe airspace disease edema and/or pneumonia. Pleural effusions. 2. No acute intracranial findings or cervical fracture. 3. Intracranial senescent changes. 4. Cervical spondylosis.
--- NOTE | ~2020-07-15 | XR_ITS ---
XR chest 1V portable 07/21/2020 04:44 Indication: Worsening hypoxia Procedure: AP portable chest Comparison: Comparison to multiple prior studies sequentially, with oldest reviewed study dated 04/2019. Findings: Heart size upper normal. Significant progression of diffuse bilateral airspace disease. Sma ll left pleural effusion. No pneumothorax. Impression: 1: Significant progression of diffuse bilateral airspace disease which may represent edema or pneumon ia. Reviewed, dictated and finalized at location A. Impression: 1: Significant progression of diffuse bilateral airspace disease which may repr esent edema or pneumonia.
--- NOTE | ~2020-07-15 | XR_ITS ---
EXAMINATION: XR foot LT 2V DATE: 07/28/2020 17:09 INDICATION: Left foot injury and swelling. TECHNIQUE: 2 views of left foot were obtained. COMPARISON: None. FINDINGS: There is mild hallux valgus. No fracture. There is mild osteoarthritis of some of the inter phalangeal joints. There is heterotopic ossification distal to lateral malleolus. There is an entheso phyte at plantar aspect of calcaneal tuberosity. IMPRESSION: 1. Mild polyarticular osteoarthritis. 2. Mild hallux valgus. Reviewed, dictated and finalized at location A.
--- NOTE | ~2020-07-15 | CT_ITS ---
EXAMINATION: CT diagnostic chest wo con DATE: 07/26/2020 11:06 INDICATION: Worsening infiltrates. Shortness of breath. TECHNIQUE: Computed tomography (CT) of the chest was performed without intravenous contrast. The dose -length product was 651.57 mGy-cm. Automated exposure control and iterative reconstruction technique were employed. COMPARISON: CT chest dated 07/15/2020 FINDINGS: Moderate bilateral pleural effusions, right greater than left. Mild cardiomegaly. There is thoracic lymphadenopathy. For example right paratracheal lymph node measures 1.4 cm short axis, image 43. There is atherosclerosis of the aorta and coronary arteries. There is a hypodense peripherally c alcified exophytic right renal mass measuring 3.2 cm with mean density of 25 Hounsfield units. There has been significant progression of extensive patchy bilateral groundglass opacification, consistent with pneumonia. No pneumothorax. Mild thoracic spondylosis. No focal lytic or blastic lesions. IMPRESSION: 1. Significant progression of patchy bilateral airspace disease, compatible with pneumonia. 2: Moderate pleural effusions, right greater than left. 3: Thoracic lymphadenopathy, likely reactive. 4: Hypodense peripherally calcified exophytic right renal mass measuring 3.2 cm, likely a complicated cyst, although further evaluation with contrast-enhanced CT or MRI recommended when the patient's co ndition permits. Reviewed, dictated and finalized at location B. IMPRESSION: 1. Significant progression of patchy bilateral airspace disease, compatible wit h pneumonia. 2: Moderate pleural effusions, right greater than left. 3: Thoracic lymphadenopathy, likely reactive. 4: Hypodense peripherally calcified exophytic right renal mass measuring 3.2 cm , likely a complicated cyst, although further evaluation with contrast-enhanced CT or MRI recommended when the patient's condition permits.
--- NOTE | ~2020-07-15 | CT_ITS ---
EXAMINATION: CT diagnostic chest wo con DATE: 07/15/2020 23:02 INDICATION: LOW O2SAT TECHNIQUE: Computed tomography (CT) of the chest was performed without intravenous contrast. Addition al 3D reconstructions utilizing coronal maximum intensity projection (MIP) were performed. Automated exposure control and iterative reconstruction technique were employed. The dose-length product was 80 5.22 mGy-cm. COMPARISON: None FINDINGS: Mild emphysema. Small bilateral pleural effusions with dependent compressive atelectasis in the bilat eral lower lobes. There are more patchy groundglass opacities in the bilateral upper lobes which are concerning for pneumonia. There are some linear opacities at periphery of both lungs represent mild a telectasis or mild pulmonary edema. Borderline heart size. No pericardial effusion. Atherosclerotic c oronary artery calcifications. Thoracic aorta is normal in caliber. There are few mildly enlarged med iastinal lymph nodes which are likely reactive. There are also several calcified mediastinal and left hilar lymph nodes consistent with old granulomatous disease. Visualized upper abdomen is unremarkabl e. Moderate thoracic spondylosis with chronic mild anterior wedging at T8 and T9. IMPRESSION: 1. Patchy groundglass opacities in the bilateral upper lobes which are concerning for pneumonia. 2. Mild emphysema. 3. Small bilateral pleural effusions with mild peripheral atelectasis versus pulmonary edema. 4. Borderline heart size. Reviewed, dictated and finalized at location A. IMPRESSION: 1. Patchy groundglass opacities in the bilateral upper lobes which are concerni ng for pneumonia. 2. Mild emphysema. 3. Small bilateral pleural effusions with mild peripheral atelectasis versus pu lmonary edema. 4. Borderline heart size.
--- NOTE | ~2020-07-15 | XR_ITS ---
XR ribs LT 2V w CXR 2V 07/19/2020 11:30 Indication: Left upper rib pain after fall Procedure: 2 views of the chest and 3 views of the left ribs Comparison: 07/15/2020 Findings: There is patchy bilateral airspace consolidation, most confluent in the right upper lobe. N o significant pleural effusion. Heart size upper normal. No displaced rib fractures are identified. N o pneumothorax. Impression: 1: Progression of patchy bilateral pneumonia, most confluent in the right upper lobe. 2: No acute displaced rib fractures. Reviewed, dictated and finalized at location A. Impression: 1: Progression of patchy bilateral pneumonia, most confluent in the right upper lobe. 2: No acute displaced rib fractures.
--- NOTE | ~2020-07-15 | XR_ITS ---
XR chest 1V portable 07/23/2020 13:42 Indication: Shortness of breath Procedure: AP portable chest Comparison: Comparison to multiple prior studies sequentially, with oldest reviewed study dated 07/15. Findings: Progression of extensive bilateral airspace disease. Cardiomegaly. No significant pleural e ffusion. No pneumothorax. Impression: 1: Progression of extensive bilateral airspace disease, consistent with pneumonia. Pulmonary edema no t excluded. Reviewed, dictated and finalized at location A. Impression: 1: Progression of extensive bilateral airspace disease, consistent with pneumon ia. Pulmonary edema not excluded.
--- NOTE | ~2020-07-15 | XR_ITS ---
EXAMINATION: XR chest 1V portable DATE: 07/26/2020 05:24 INDICATION: Shortness of breath TECHNIQUE: frontal view of the chest was obtained. COMPARISON: Chest radiograph dated 07/23/2020 FINDINGS: No significant interval change in diffuse bilateral patchy airspace opacities. No pleural effusion or pneumothorax. The cardiomediastinal silhouette is normal. , IMPRESSION: 1. Unchanged diffuse bilateral patchy airspace opacities and favor pneumonia over pulmonary edema. Reviewed, dictated and finalized at location A. IMPRESSION: 1. Unchanged diffuse bilateral patchy airspace opacities and favor pneumonia ov er pulmonary edema.
--- NOTE | 2020-07-15 19:05 | ECG_ITS ---
Measurements Intervals [place] Rate: 64 P: [place]: 0 QRS: -27 QRSD: 123 T: 48 QT: 414 QTc: 429 Interpretive Statements ATRIAL FLUTTER/TACHYCARDIA LEFT BUNDLE BRANCH BLOCK BASELINE ARTIFACT- I, II, III, AVR, AVL,A VF, V3-V6 ABNORMAL ECG Electronically Signed On 07-15-2020 19:57:28 CDT by Richi Giordano D.O.
[2020-07-15] MEDS: methylPREDNISolone SOD SUCC 125 MG VIAL IV PUSH (19:21)
[2020-07-15] MEDS: ALBUTEROL SULFATE NEB 2.5 MG/0.5 ML INH 5 MG INHALATION (19:22)
[2020-07-15 19:40] LABS: Alveolar/Arterial O2 Gradient 130.2 mmHg; Base Excess ABG 6.6 mEq/l (+/-2.0); Carboxyhemoglobin 0.4 % THb (0-2.0); Fractional Inspired Oxygen 36 %; HCO3 ABG 31.7 mEq/l (22.0-26.0); Methemoglobin ABG 0.3 %THb (0-1.5); Oxygen Content ABG 15.4 %vol (16.0-22.0); Oxygen Saturation ABG 94.6 % (95.0-100.0); Oxyhemoglobin 93.6 % THb (90.0-100.0); PCO2 ABG 47.9 mmHg (35.0-45.0); PO2 ABG 70.9 mmHg (80.0-100.0); PO2 FiO2 Ratio Arterial Blood 1.97 %; Reduced Hemoglobin 5.7 %THb (0-5.0); Total Hemoglobin 11.7 g/dL (12.0-18.0); pH ABG 7.439 (7.350-7.450)
[2020-07-15 19:42] LABS: Device NASAL CANNULA; Modified Allen's Test Pass; Site Drawn RIGHT RADIAL
[2020-07-15 20:36] LABS: Basophils Absolute Auto 0.1 K/mm3 (0.0-0.1); Basophils Percent Auto 0.5 % (0.2-1.2); Eosinophils Absolute Auto 0.4 K/mm3 (0-0.3); Hematocrit 37.4 % (42.0-52.0); Hemoglobin 11.7 g/dL (14.0-18.0); Immature Granulocyte Absolute 0.04 K/mm3 (0.00-0.031); Immature Granulocyte Percent A 0.3 % (0-0.5); Lymphocytes Absolute Auto 1.95 K/mm3 (0.9-3.2); Lymphocytes Percent Auto 14.8 % (18.3-44.2); Mean Corpuscular HGB Conc 31.3 g/dl (32-36); Mean Corpuscular Hemoglobin 25.1 pg (26-34); Mean Corpuscular Volume 80.1 fl (80-100); Monocytes Absolute Auto 1.1 K/mm3 (0.1-0.6); Monocytes Percent Auto 8.1 % (2.6-8.5); Neutrophils Absolute Auto 9.7 K/mm3 (1.3-6.7); Neutrophils Percent Auto 73.3 % (45.5-73.1); Platelet Count Result 316 k/mm3 (150-375); Red Blood Count 4.67 M/mm3 (4.6-6.20); Red Cell Distribution Width 14.9 % (11.5-14.5); White Blood Count 13.2 K/mm3 (4.5-10.0)
[2020-07-15 20:45] LABS: INR 1.3; Prothrombin Time 16.7 Seconds (11.1-14.7)
[2020-07-15 20:46] LABS: Alanine Aminotransferase 16 U/L (4-50); Albumin Level 3.8 g/dL (3.5-5.1); Alkaline Phosphatase 129 U/L (38-126); Anion Gap 9 mmol/L (8-16); Aspartate Amino Transferase 25 U/L (17-59); Bilirubin,Total 0.7 mg/dL (0.2-1.3); Blood Urea Nitrogen 12 mg/dL (9-20); Calcium 9.4 mg/dL (8.4-10.2); Carbon Dioxide 32 mmol/L (22-30); Chloride 93 mmol/L (98-107); Estimated CRCL calculation 108 ml/min; Estimated Glomerular Filt Rate > 60; Glucose 128 mg/dL (75-110); Potassium 4.4 mmol/L (3.4-5.0); Sodium 134 mmol/L (137-145)
[2020-07-15 20:58] LABS: NT Pro B Type Natriuretic Pept 1270 pg/mL (5-100); Troponin I 0.027 ng/mL (0.000-0.034)
--- NOTE | 2020-07-15 22:14 | PM.IMHP ---
H&P: HPI History of Present Illness Date/Time: 07/15/20 22:14 Chief Complaint: Shortness of breath Narrative: This is a 70-year-old male with past medical history significant for COPD/emphysema patient usually is on 2 L while at rest by nasal cannula, hypertension, type 2 diabetes mellitus controlled with oral agents as well as insulin and diet, peripheral diabetic neuropathy, atrial fibrillation on anticoagulation and rate controlled. Patient presented to the emergency room due to worsening shortness of breath over the course of the last few days or so states that he has an occasional dry cough but denies sputum production, no fevers no rigors no chills, no chest pain, no leg swelling, no PND no orthopnea, no syncope or near syncope, no palpitations, no nausea no vomiting no diarrhea no abdominal pain. Patient states that his oxygen saturation at some point was 60% at home and decided to come to the emergency room. Preliminary workup was significant for chest x-ray with lung infiltrates and slightly elevated BNP. Review of Systems Review of Systems: Narrative: Worsening shortness of Constitutional: Constitutional: Denies chills, Denies fatigue and Denies fever(s) Eyes: Eyes: Denies change in vision ENT: Denies nasal congestion, Denies nasal discharge and Denies nasal obstruction Cardiovascular: Cardiovascular: Denies chest pain at rest, Denies pedal edema, Denies radiating jaw, neck or arm pain, Denies palpitations, Reports dyspnea, Reports dyspnea on exertion and Reports orthopnea Respiratory: Respiratory: Denies change in phlegm color, Reports cough (Dry), Denies excessive phlegm production, Reports dyspnea and Denies wheezing Gastrointestinal: Gastrointestinal: Denies abdominal pain, Denies dysphagia, Denies nausea and Denies vomiting Comments: Growth inside his mouth in the hard and soft palate Genitourinary: Genitourinary: Denies dysuria and Denies flank pain Musculoskeletal: Musculoskeletal: Denies arthralgias Integumentary/Breasts: Skin/Breast: Denies rash Neurologic: Denies focal weakness and Denies weakness Psychiatric: Psychiatric: Reports no additional psychiatric complaints Endocrine: Endocrine: Reports no additional endocrine complaints Hematologic/Lymphatic: Hematologic/Lymphatic: Reports no additional hematologic/lymphatic complaints Allergic/Immunologic: Allergic/Immunologic: Reports no additional allergic/immunologic complaints PMFSH Past Medical History Medical History (Updated 07/16/20 @ 03:36 by Georgia Helms MD) Anxiety Atrial fibrillation Paroxysmal BPH (benign prostatic hyperplasia) COPD (chronic obstructive pulmonary disease) Diabetes mellitus Type 2 History of osteomyelitis Right heel History of pancreatitis Hyperlipidemia No statins just a high-fiber diet. Hypertension Surgical History Surgical History History of tonsillectomy History of vasectomy Family History Family History Mother Family history of malignant neoplasm of breast in first degree relative Depression Family history of thyroid disease Father Family history of type 2 diabetes mellitus Hypertension Sibling Alcoholic Heart disease Other Diabetes mellitus Grandparent Alcoholic Other Family history of cardiovascular disease Family history of congestive heart failure Family history of hearing loss Family history of malignant neoplasm Social History Social History Social History: The patient had 5 children in his is . He lives with his daughter and son-in-law on their 5 children. 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 Patient quit smoking about 40 years ago. 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 Smoking packs per day: 1.5 Smoking cigarettes per day: 30.0 Years smoked: 30 Smoking pack-years:
[2020-07-16] VITALS (31 sets, daily range): BP systolic 145–180; BP diastolic 64–84; PULSE 60–86; RESP 16–21; TEMP 36.6–37.2; O2SAT 90–100; BMI 32.3
--- NOTE | 2020-07-16 00:32 | ED.SOB ---
HPI - SOB/Dyspnea General Chief Complaint: Shortness of Breath/Dyspnea Stated Complaint: SOB X1 WEEK Time Seen by Provider: 07/15/20 18:42 Source: patient Mode of arrival: ambulatory Limitations: no limitations History of Present Illness HPI Narrative: 70-year-old with a history of hypertension, diabetes, COPD on 2-1/2 L of oxygen here with complaints of shortness of breath for past few days. Patient states that he has to increase his O2 to 6 L this afternoon. Patient denies unusual cough or fever. No history of chest pain. MD elicited complaint: shortness of breath Pertinent past history: COPD Timing: constant Severity: moderate Exacerbating factors: nothing Relieving factors: oxygen Known history of: COPD Related Data Home oxygen amount: 2 liters (2.5) Home Medications Medication Instructions Recorded Confirmed gabapentin 300 mg capsule 300 mg PO TID 01/30/19 06/14/20 Allergies Allergy/AdvReac Type Severity Reaction Status Date / Time coconut Allergy Severe headaches Verified 05/24/20 10:00 Iodinated Contrast Media Allergy Mild Unknown Verified 05/24/20 10:00 Contrast Media Allergy Unknown Unknown Uncoded 05/24/20 10:00 Review of Systems Review of Systems: All systems reviewed & are unremarkable except as noted in HPI and below Constitutional: Constitutional: Reports no additional constitutional complaints Eyes: Eyes: Reports no additional eye complaints ENT: Reports system reviewed and no additional complaints, except as documented Cardiovascular: Cardiovascular: Reports no additional cardiovascular complaints Respiratory: Respiratory: Reports as per HPI Gastrointestinal: Gastrointestinal: Reports no additional gastrointestinal complaints Musculoskeletal: Musculoskeletal: Reports no additional musculoskeletal complaints Integumentary/Breasts: Skin/Breast: Reports system reviewed and no additional complaints, except as docu PMFSH Past Medical History Medical History Anxiety Atrial fibrillation Paroxysmal BPH (benign prostatic hyperplasia) COPD (chronic obstructive pulmonary disease) Diabetes mellitus Type 2 History of osteomyelitis Right heel History of pancreatitis Hyperlipidemia No statins just a high-fiber diet. Hypertension Surgical History Surgical History History of tonsillectomy History of vasectomy Family History Family History Mother Family history of malignant neoplasm of breast in first degree relative Depression Family history of thyroid disease Father Family history of type 2 diabetes mellitus Hypertension Sibling Alcoholic Heart disease Other Diabetes mellitus Grandparent Alcoholic Other Family history of cardiovascular disease Family history of congestive heart failure Family history of hearing loss Family history of malignant neoplasm Social History Social History Social History: The patient had 5 children in his is . He lives with his daughter and son-in-law on their 5 children. 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 Patient quit smoking about 40 years ago. 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 Smoking status: Former smoker Smoking end date: 02/05/82 Alcohol intake: never Substance use: former Substance use type: does not use Gender identity (if verbalized by the patient): Male Spiritual care concerns: No Agree to blood products: Yes Exam Narrative: Exam Narrative: GENERAL: Well-appearing, well-nourished, and in no acute distress. HEAD: Normocephalic, atraumatic. EYES: PERRLA and EOMI. ENT: Nares clear, no rhinorrhea or epistaxis. Mucous membranes moist. NECK: Supple. CHEST: Decreased air entry bilateral wheeze. No respiratory distress. HEART: Regular rate and rhythm.
[2020-07-16 01:38] LABS: Glucose Point of Care 257 mg/dl (65-105)
--- NOTE | 2020-07-16 02:30 | ADMGEN ---
This patient, Del Schmitz, was admitted to Medical Room 342-01. Patient/family oriented to hospital policies and general routines including ID bracelet, bed and alarms, visiting hours, pain management, procedures, bathroom and other care routines, personal items, smoking policy, room service/diet, and visiting hours. Information on how to activate the Rapid Response Team has been discussed. Patient/Family are encouraged to report perceived risks to care and to ask questions if they do not understand what they are told or what they should do.
[2020-07-16] MEDS: methylPREDNISolone SOD SUCC 125 MG VIAL 60 MG IV PUSH ×4 (02:40→17:41)
[2020-07-16] MEDS: FLUCONAZOLE 400 MG/NACL 200 ML 400 MG/200 ML BAG 100 MG IVPB (03:02)
[2020-07-16] MEDS: IPRATROPIUM BR 0.02% INH SOLN 0.5 MG/2.5 ML VIAL INHALATION ×4 (03:22→21:59)
[2020-07-16] MEDS: ALBUTEROL SULFATE NEB 2.5 MG/0.5 ML INH 5 MG INHALATION ×4 (03:22→21:59)
[2020-07-16] MEDS: amLODIPine BESYLATE 5 MG TABLET 10 MG PO (04:41)
[2020-07-16] MEDS: carvediloL 25 MG TABLET BY MOUTH ×2 (04:41→20:42)
[2020-07-16] MEDS: TOBRAMYCIN 0.3% OPHTH SOLN 5 ML 2 DROP EACH EYE ×5 (04:41→20:43)
[2020-07-16] MEDS: GABAPENTIN 300 MG CAPSULE PO ×3 (06:30→20:42)
[2020-07-16] MEDS: ACETAMINOPHEN/CODEINE (*CRX) 300/30 MG TABLET 1 TAB PO ×2 (06:33→19:34)
[2020-07-16 08:39] LABS: Glucose Point of Care 230 mg/dl (65-105)
[2020-07-16] MEDS: ENOXAPARIN 40 MG/0.4 ML SYRINGE SUB-Q (08:58)
[2020-07-16] MEDS: LORATADINE 10 MG TABLET PO (08:59)
[2020-07-16] MEDS: INSULIN GLARGINE (*BKC) 100 UNITS/ML 36 UNITS SUB-Q (09:00)
[2020-07-16] MEDS: INSULIN ASPART (*BKC) 100 UNITS/ML SUB-Q ×3 (09:04→17:39)
[2020-07-16] MEDS: MUPIROCIN 2% OINT 22 GM TUBE 1 APPLIC TOPICAL ×2 (09:10→17:40)
[2020-07-16 12:06] LABS: Glucose Point of Care 275 mg/dl (65-105)
--- NOTE | 2020-07-16 13:55 | PC.NURSE ---
On 07/16/20, the student, [ Shabana Fajardo], provided care and completed [facility] documentation on this patient. I have reviewed the student's documentation and agree with the findings.
--- NOTE | 2020-07-16 14:51 | PM.IMPN ---
Progress Note: A&P Assessment and Plan (1) Acute exacerbation of chronic obstructive pulmonary disease: Code(s): J44.1 - Chronic obstructive pulmonary disease with (acute) exacerbation Status: Acute Assessment and Plan: Pt still has SOB and is utilizing 4L o2 which is above his normal 2L -Will continue breathing treatments, solumedrol 60mg Q6, and o2 supplementation -Continue abx with azithromycin, ceftriaxone and vancomycin -PCR testing for COVID-19. Continue isolation until resulted. Patient has not had the COVID-19 vaccine (2) Acute respiratory failure with hypoxia: Code(s): J96.01 - Acute respiratory failure with hypoxia Status: Acute Assessment and Plan: Due to above (3) Community acquired pneumonia: Qualifiers: Laterality: unspecified laterality Qualified Code(s): J18.9 - Pneumonia, unspecified organism Code(s): J18.9 - Pneumonia, unspecified organism Status: Acute Assessment and Plan: As above (4) Diabetes mellitus: Qualifiers: Diabetes mellitus type: type 2 Diabetes mellitus prison insulin use: unspecified prison insulin use status Diabetes mellitus complication status: with hyperglycemia Qualified Code(s): E11.65 - Type 2 diabetes mellitus with hyperglycemia Code(s): E11.9 - Type 2 diabetes mellitus without complications Status: Chronic Assessment and Plan: Last glucose 275 elevated due to steroids -will continue Lantus and increase sliding scale insulin to high-dose -if he continues run high, we may consider mealtime scheduled insulin and will increase depending on his trends -A1c 9.3 last month -patient has a wound on his left great toe which should be closely monitored due to his diabetic state. Silver gel at it and (5) Atrial fibrillation: Qualifiers: Atrial fibrillation type: unspecified Qualified Code(s): I48.91 - Unspecified atrial fibrillation Code(s): I48.91 - Unspecified atrial fibrillation Status: Acute Assessment and Plan: Currently rate controlled and anticoagulated with Eliquis -continue carvedilol (6) Diabetic polyneuropathy associated with type 2 diabetes mellitus: Code(s): E11.42 - Type 2 diabetes mellitus with diabetic polyneuropathy Status: Acute Assessment and Plan: Continue gabapentin (7) Oral thrush: Code(s): B37.0 - Candidal stomatitis Status: Acute Assessment and Plan: He was given Diflucan 400 mg IV 1 time -continue nystatin oral therapy -will need follow-up with this -test for HIV, likely just due to uncontrolled diabetes Time Spent With Patient Time with patient: 25 - 35 minutes Subjective Date/time seen: 07/16/20 14:51 Interval history: Pt is a overweight 70-year-old male with a history of diabetes, 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 Patient was seen today and continues to have shortness of breath with any activity. He does not have much shortness of breath at rest. He is barely coughing up anything but does produce sputum occasionally. He has complaints of a sore mouth/throat that hurts when he chews and swallows and feels like razor blades. Although he is prescribed inhalers he does not really take these at home. He has no concerns for HIV. He has never had a history of thrush. He has not had his COVID-19 vaccine and has not had a history of COVID-19. He denies chest pain, nausea, vomiting, fevers or chills. Review of Systems Review of Systems: All systems reviewed & are unremarkable except as noted in HPI and below Exam Narrative: Exam Narrative: General: Overweight patient resting comfortably in bed in no acute distress HEENT: normocephalic, oxygen applied Neck: supple Neuro: Alert and oriented x4 CV:RRR Resp: Crackles at the bases, no wheezing or
[2020-07-16 17:23] LABS: Glucose Point of Care 268 mg/dl (65-105)
[2020-07-16] MEDS: SALINE 0.65% NAS SOLN 44 ML BTL 1 SPRAY NASAL (17:37)
[2020-07-16] MEDS: SILVERGEL (ELTA) 45 ML 1 APPLIC TOPICAL (17:38)
[2020-07-16] MEDS: APIXABAN 5 MG TABLET PO (17:39)
[2020-07-16] MEDS: PHENOL/SOD PHENO SPRAY CHERRY (*BKC) 1 SPRAY MUCOUS MEM ×2 (17:39→20:48)
[2020-07-16] MEDS: NYSTATIN 100,000 UNITS/ML SUSP 5 ML ORAL.SUSP PO ×2 (17:40→20:41)
[2020-07-16 19:49] LABS: SARS-CoV-2 RNA PCR Negative
[2020-07-16] MEDS: IMIPRAMINE HCL 25 MG TABLET 50 MG PO (20:42)
[2020-07-16] MEDS: DULoxetine HCL 30 MG CAPSULE.DR 90 MG BY MOUTH (20:43)
[2020-07-16 21:47] LABS: Glucose Point of Care 226 mg/dl (65-105)
[2020-07-17] VITALS (18 sets, daily range): BP systolic 150–162; BP diastolic 66–90; PULSE 50–71; RESP 18–24; TEMP 36.1–36.7; O2SAT 88–97
[2020-07-17] MEDS: methylPREDNISolone SOD SUCC 125 MG VIAL 60 MG IV PUSH ×3 (00:07→17:52)
[2020-07-17] MEDS: TOBRAMYCIN 0.3% OPHTH SOLN 5 ML 2 DROP EACH EYE ×7 (00:09→23:45)
[2020-07-17] MEDS: IPRATROPIUM BR 0.02% INH SOLN 0.5 MG/2.5 ML VIAL INHALATION ×4 (03:38→19:41)
[2020-07-17] MEDS: ALBUTEROL SULFATE NEB 2.5 MG/0.5 ML INH 5 MG INHALATION ×4 (03:38→19:41)
[2020-07-17] MEDS: GABAPENTIN 300 MG CAPSULE PO ×3 (05:55→20:56)
[2020-07-17 06:43] LABS: Basophils Percent Auto 0.1 % (0.2-1.2); Hematocrit 33.3 % (42.0-52.0); Hemoglobin 10.9 g/dL (14.0-18.0); Immature Granulocyte Absolute 0.15 K/mm3 (0.00-0.031); Immature Granulocyte Percent A 0.8 % (0-0.5); Lymphocytes Absolute Auto 1.22 K/mm3 (0.9-3.2); Lymphocytes Percent Auto 6.2 % (18.3-44.2); Mean Corpuscular HGB Conc 32.7 g/dl (32-36); Mean Corpuscular Hemoglobin 25.2 pg (26-34); Mean Corpuscular Volume 77.1 fl (80-100); Mean Platelet Volume 10.1 fl (7.4-10.4); Monocytes Absolute Auto 0.6 K/mm3 (0.1-0.6); Neutrophils Absolute Auto 17.6 K/mm3 (1.3-6.7); Neutrophils Percent Auto 89.9 % (45.5-73.1); Platelet Count Result 306 k/mm3 (150-375); Red Blood Count 4.32 M/mm3 (4.6-6.20); Red Cell Distribution Width 14.5 % (11.5-14.5); White Blood Count 19.6 K/mm3 (4.5-10.0)
[2020-07-17 06:52] LABS: Alanine Aminotransferase 20 U/L (4-50); Albumin Level 3.7 g/dL (3.5-5.1); Alkaline Phosphatase 112 U/L (38-126); Anion Gap 9 mmol/L (8-16); Aspartate Amino Transferase 27 U/L (17-59); Bilirubin,Total 0.7 mg/dL (0.2-1.3); Blood Urea Nitrogen 20 mg/dL (9-20); CRP 0.8 mg/dL (<1.0); Calcium 8.7 mg/dL (8.4-10.2); Carbon Dioxide 29 mmol/L (22-30); Chloride 85 mmol/L (98-107); Estimated CRCL calculation 94 ml/min; Estimated Glomerular Filt Rate > 60; Glucose 288 mg/dL (75-110); Magnesium 1.3 mg/dL (1.6-2.3); Phosphorus 3.7 mg/dL (2.5-4.5); Potassium 4.5 mmol/L (3.4-5.0); Sodium 123 mmol/L (137-145)
[2020-07-17 07:28] LABS: HIV 1/2 Ab P24 Ag Result Negative (Negative)
[2020-07-17 08:22] LABS: Glucose Point of Care 291 mg/dl (65-105)
[2020-07-17] MEDS: MAGNESIUM SULFATE 3GM/D5W100ML 3 GM/100 ML BAG IVPB (08:34)
[2020-07-17] MEDS: carvediloL 25 MG TABLET BY MOUTH ×2 (08:35→20:57)
[2020-07-17] MEDS: APIXABAN 5 MG TABLET PO ×2 (08:35→17:41)
[2020-07-17] MEDS: amLODIPine BESYLATE 5 MG TABLET 10 MG PO (08:35)
[2020-07-17] MEDS: LORATADINE 10 MG TABLET PO (08:36)
[2020-07-17] MEDS: MUPIROCIN 2% OINT 22 GM TUBE 1 APPLIC TOPICAL ×2 (08:37→17:41)
[2020-07-17] MEDS: SILVERGEL (ELTA) 45 ML 1 APPLIC TOPICAL (08:37)
[2020-07-17] MEDS: NYSTATIN 100,000 UNITS/ML SUSP 5 ML ORAL.SUSP PO ×4 (08:38→20:55)
[2020-07-17] MEDS: INSULIN GLARGINE (*BKC) 100 UNITS/ML 36 UNITS SUB-Q (10:05)
[2020-07-17] MEDS: INSULIN ASPART (*BKC) 100 UNITS/ML SUB-Q ×5 (10:07→17:44)
[2020-07-17 11:23] LABS: Vancomycin Trough 15.5 ug/mL (10.0-20.0)
[2020-07-17 12:00] LABS: Glucose Point of Care 229 mg/dl (65-105)
[2020-07-17] MEDS: PHENOL/SOD PHENO SPRAY CHERRY (*BKC) 1 SPRAY MUCOUS MEM (12:41)
--- NOTE | 2020-07-17 15:55 | PM.IMPN ---
Progress Note: A&P Assessment and Plan (1) Acute exacerbation of chronic obstructive pulmonary disease: Code(s): J44.1 - Chronic obstructive pulmonary disease with (acute) exacerbation Status: Acute Assessment and Plan: Pt still has SOB and is utilizing 4L o2 which is above his normal 2L -Will continue breathing treatments, change to solumedrol to 60mg Q12, and o2 supplementation -Continue abx with azithromycin, ceftriaxone and vancomycin -PCR for COVID negative -PE less likely due to Eliquis (2) Acute respiratory failure with hypoxia: Code(s): J96.01 - Acute respiratory failure with hypoxia Status: Acute Assessment and Plan: Due to above (3) Community acquired pneumonia: Qualifiers: Laterality: unspecified laterality Qualified Code(s): J18.9 - Pneumonia, unspecified organism Code(s): J18.9 - Pneumonia, unspecified organism Status: Acute Assessment and Plan: As above (4) Diabetes mellitus: Qualifiers: Diabetes mellitus type: type 2 Diabetes mellitus skilled nursing insulin 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 No signs of osteomyelitis at this time. Silver gel has been added. (5) Atrial fibrillation: Qualifiers: Atrial fibrillation type: unspecified Qualified Code(s): I48.91 - Unspecified atrial fibrillation Code(s): I48.91 - Unspecified atrial fibrillation Status: Acute Assessment and Plan: Currently rate controlled and anticoagulated with Eliquis -continue carvedilol (6) Diabetic polyneuropathy associated with type 2 diabetes mellitus: Code(s): E11.42 - Type 2 diabetes mellitus with diabetic polyneuropathy Status: Acute Assessment and Plan: Continue gabapentin (7) Oral thrush: Code(s): B37.0 - Candidal stomatitis Status: Acute Assessment and Plan: He was given Diflucan 400 mg IV 1 time -continue nystatin oral therapy -will need follow-up with this -HIV neg (8) Hyponatremia: Code(s): E87.1 - Hypo-osmolality and hyponatremia Status: Acute Assessment and Plan: Na 123 down from 134 on admission -pt not on IV fluids -he does have PNA, legionella? will add urine studies -pt has a hx of hyponatremia ranging from 125-135 -check urine sodium, await results and may consider fluid restriction -pt not on any diuretics or SSRI -monitor with daily labs (9) Mouth ulcer: Code(s): K12.1 - Other forms of stomatitis Status: Acute Assessment and Plan: Pt needs bx, especially with hx of chew -autoimmune and becets seem less likely. Normal CRP and KAMALA in the past -follow up with Dr. Rich Subjective Date/time seen: 07/17/20 15:55 Interval history: Pt is a overweight 70-year-old male with a history of diabetes, COPD emphysema on 2 L at home, and atrial fibrillation who presented emergency room for shortness of breath found to have pneumonia. Patient was seen today and is feeling a bit better. He doesn't have much SOB at rest but when he moves he gets SOB. He denies a cough at this time. His other main complaint is the pain on his pallet. He states he has seen DR. Rich who recommended him f/u with rheumoatology. I think he needs a bx. No CP, diarrhea, abdominal pain, nausea or vomiting. He is slightly constipated. Exam Narrative: Exam Narrative: General: Overweight patient resting comfortably
[2020-07-17 17:34] LABS: Glucose Point of Care 137 mg/dl (65-105)
[2020-07-17] MEDS: DULoxetine HCL 30 MG CAPSULE.DR 90 MG BY MOUTH (20:56)
[2020-07-17] MEDS: IMIPRAMINE HCL 25 MG TABLET 50 MG PO (20:57)
[2020-07-17 21:31] LABS: Glucose Point of Care 196 mg/dl (65-105)
[2020-07-17] MEDS: ACETAMINOPHEN/CODEINE (*CRX) 300/30 MG TABLET 1 TAB PO (23:40)
[2020-07-18] VITALS (16 sets, daily range): BP systolic 142–172; BP diastolic 75–77; PULSE 50–77; RESP 18–28; TEMP 36.4–36.6; O2SAT 91–94
[2020-07-18] MEDS: ALBUTEROL SULFATE NEB 2.5 MG/0.5 ML INH 5 MG INHALATION ×4 (01:38→20:15)
[2020-07-18] MEDS: IPRATROPIUM BR 0.02% INH SOLN 0.5 MG/2.5 ML VIAL INHALATION ×4 (01:38→20:15)
[2020-07-18] MEDS: PHENOL/SOD PHENO SPRAY CHERRY (*BKC) 1 SPRAY MUCOUS MEM (03:50)
[2020-07-18] MEDS: TOBRAMYCIN 0.3% OPHTH SOLN 5 ML 2 DROP EACH EYE ×5 (06:01→22:01)
[2020-07-18] MEDS: methylPREDNISolone SOD SUCC 125 MG VIAL 60 MG IV PUSH ×2 (06:01→17:21)
[2020-07-18] MEDS: GABAPENTIN 300 MG CAPSULE PO ×3 (06:02→22:00)
[2020-07-18] MEDS: SALINE 0.65% NAS SOLN 44 ML BTL 1 SPRAY NASAL (06:06)
[2020-07-18 06:28] LABS: Basophils Percent Auto 0.1 % (0.2-1.2); Hematocrit 32.1 % (42.0-52.0); Hemoglobin 10.5 g/dL (14.0-18.0); Immature Granulocyte Absolute 0.25 K/mm3 (0.00-0.031); Immature Granulocyte Percent A 1.3 % (0-0.5); Lymphocytes Absolute Auto 0.96 K/mm3 (0.9-3.2); Lymphocytes Percent Auto 4.9 % (18.3-44.2); Mean Corpuscular HGB Conc 32.7 g/dl (32-36); Mean Corpuscular Hemoglobin 24.9 pg (26-34); Mean Corpuscular Volume 76.2 fl (80-100); Mean Platelet Volume 9.8 fl (7.4-10.4); Monocytes Absolute Auto 1.1 K/mm3 (0.1-0.6); Monocytes Percent Auto 5.6 % (2.6-8.5); Neutrophils Absolute Auto 17.1 K/mm3 (1.3-6.7); Neutrophils Percent Auto 88.1 % (45.5-73.1); Platelet Count Result 344 k/mm3 (150-375); Red Blood Count 4.21 M/mm3 (4.6-6.20); Red Cell Distribution Width 14.3 % (11.5-14.5); White Blood Count 19.5 K/mm3 (4.5-10.0)
[2020-07-18 06:48] LABS: Anion Gap 10 mmol/L (8-16); Blood Urea Nitrogen 27 mg/dL (9-20); Calcium 8.6 mg/dL (8.4-10.2); Carbon Dioxide 28 mmol/L (22-30); Chloride 83 mmol/L (98-107); Estimated CRCL calculation 84 ml/min; Estimated Glomerular Filt Rate > 60; Glucose 178 mg/dL (75-110); Magnesium 1.9 mg/dL (1.6-2.3); Potassium 4.4 mmol/L (3.4-5.0); Sodium 121 mmol/L (137-145)
[2020-07-18 08:14] LABS: Glucose Point of Care 179 mg/dl (65-105)
[2020-07-18] MEDS: amLODIPine BESYLATE 5 MG TABLET 10 MG PO (08:30)
[2020-07-18] MEDS: APIXABAN 5 MG TABLET PO ×2 (08:31→17:20)
[2020-07-18] MEDS: LORATADINE 10 MG TABLET PO (08:31)
[2020-07-18] MEDS: carvediloL 25 MG TABLET BY MOUTH ×2 (08:31→21:59)
[2020-07-18] MEDS: MUPIROCIN 2% OINT 22 GM TUBE 1 APPLIC TOPICAL ×2 (08:32→17:20)
[2020-07-18] MEDS: SILVERGEL (ELTA) 45 ML 1 APPLIC TOPICAL (08:32)
[2020-07-18] MEDS: NYSTATIN 100,000 UNITS/ML SUSP 5 ML ORAL.SUSP PO ×4 (08:32→22:00)
[2020-07-18] MEDS: INSULIN ASPART (*BKC) 100 UNITS/ML SUB-Q ×5 (08:35→17:15)
[2020-07-18] MEDS: INSULIN GLARGINE (*BKC) 100 UNITS/ML 36 UNITS SUB-Q (08:35)
[2020-07-18 10:43] LABS: Sodium Urine Random < 5 meq/L
[2020-07-18 12:49] LABS: Glucose Point of Care 206 mg/dl (65-105)
--- NOTE | 2020-07-18 13:31 | PM.IMPN ---
Progress Note: A&P Assessment and Plan (1) Acute exacerbation of chronic obstructive pulmonary disease: Code(s): J44.1 - Chronic obstructive pulmonary disease with (acute) exacerbation Status: Acute Assessment and Plan: Pt still has SOB and is utilizing 4L o2 which is above his normal 2L -Will continue breathing treatments, solumedrol to 60mg Q12, and o2 supplementation -Continue abx but broaden coverage to cefepime and vanc because he has lack of improvement -Continue albuterol, atrovent and will start IS -start symbicort -CXR today appears relatively unchanged -PCR for COVID negative -PE less likely due to Eliquis -may consider pulmonology consult if pt does not improve (2) Acute respiratory failure with hypoxia: Code(s): J96.01 - Acute respiratory failure with hypoxia Status: Acute Assessment and Plan: Due to above (3) Community acquired pneumonia: Qualifiers: Laterality: unspecified laterality Qualified Code(s): J18.9 - Pneumonia, unspecified organism Code(s): J18.9 - Pneumonia, unspecified organism Status: Acute Assessment and Plan: As above (4) Diabetes mellitus: Qualifiers: Diabetes mellitus type: type 2 Diabetes 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 No signs of osteomyelitis at this time. Silver gel has been added. (5) Atrial fibrillation: Qualifiers: Atrial fibrillation type: unspecified Qualified Code(s): I48.91 - Unspecified atrial fibrillation Code(s): I48.91 - Unspecified atrial fibrillation Status: Acute Assessment and Plan: Currently rate controlled and anticoagulated with Eliquis -continue carvedilol (6) Diabetic polyneuropathy associated with type 2 diabetes mellitus: Code(s): E11.42 - Type 2 diabetes mellitus with diabetic polyneuropathy Status: Acute Assessment and Plan: Continue gabapentin (7) Oral thrush: Code(s): B37.0 - Candidal stomatitis Status: Acute Assessment and Plan: He was given Diflucan 400 mg IV 1 time -continue nystatin oral therapy -will need follow-up with this -HIV neg (8) Hyponatremia: Code(s): E87.1 - Hypo-osmolality and hyponatremia Status: Acute Assessment and Plan: Na 121 down from 134 on admission -pt not on IV fluids but drinks a lot of liquids -he does have PNA, legionella? await urine studies -pt has a hx of hyponatremia ranging from 125-135 -Urine sodium <5; start fluid restriction -pt not on any diuretics or SSRI -monitor with daily labs (9) Mouth ulcer: Code(s): K12.1 - Other forms of stomatitis Status: Acute Assessment and Plan: Pt needs bx, especially with hx of chew -autoimmune and becets seem less likely. Normal CRP and KAMALA in the past -follow up with Dr. 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 Patient states he continues to feel short of breath and now is short of breath at rest. He feels a bit worse than yesterday and is requiring more oxygen. He continues to have a dry cough. No CP, diarrhea, abdominal pain, nausea or vomiting. He is slightly constipated. He is worried about his fluid restric
[2020-07-18 17:17] LABS: Glucose Point of Care 225 mg/dl (65-105)
[2020-07-18] MEDS: ACETAMINOPHEN/CODEINE (*CRX) 300/30 MG TABLET 1 TAB PO (21:57)
[2020-07-18] MEDS: DULoxetine HCL 30 MG CAPSULE.DR 90 MG BY MOUTH (21:58)
[2020-07-18] MEDS: IMIPRAMINE HCL 25 MG TABLET 50 MG PO (21:59)
[2020-07-19] VITALS (16 sets, daily range): BP systolic 132–144; BP diastolic 66–107; PULSE 53–89; RESP 12–24; TEMP 36.1–36.3; O2SAT 89–95
--- NOTE | 2020-07-19 | ECHO_ITS ---
Patient Info Name: Del Schmitz Age: 70 years : 1950 Gender: Male Ht: 72 in Wt: 238 lbs BSA: 2.37 m2 HR: 60 bpm BP: 172 / 75 mmHg Technical Quality: Good Exam Date: 07/19/2020 8:18 AM Exam Location: [facility] Patient Status: Inpatient Admit Date: 07/16/2020 Staff Ordering Physician: Georgia Helms MD Patient Relations Liaison: Earnest Sanchez RDCS, RT Attending Provider: Amanda Ferrera PA-C Referring Physician: Scooter GEORGE; Exam Type: CA echo doppler color flow Study Info Indications R06.02 - Shortness of breath Complete two-dimensional, color flow and Doppler transthoracic echocardiogram is performed. Strain analysis performed. Summary 1. Complete two-dimensional, color flow and Doppler transthoracic echocardiogram is performed. 2. Left ventricular chamber dimension is normal. 3. Left ventricular systolic function is normal, estimated at 65-70%. 4. There is moderately increased left ventricular wall thickness. 5. The left ventricular diastolic function is abnormal. 6. E/e' 13 is mildly elevated. 7. Global longitudinal strain is abnormal at -13.5%. 8. Left atrial chamber dimension is mildly enlarged. 9. The mitral valve has mildly calcified annulus. 10. There is mild to moderate mitral valve regurgitation. 11. There is trace tricuspid valve regurgitation. 12. Mild pulmonary hypertension, estimated pulmonary arterial systolic pressure is 47 mmHg. Left Ventricle E/e' 13 is mildly elevated. Global longitudinal strain is abnormal at -13.5%. Left ventricular chamber dimension is normal. Left ventricular systolic function is normal, estimated at 65-70%. There is moderately increased left ventricular wall thickness. The left ventricular diastolic function is abnormal. Right Ventricle Right ventricular systolic function is normal with normal TAPSE 2.1 cm. Right ventricular chamber dimension is normal. Left Atria Left atrial chamber dimension is mildly enlarged. Right Atria Right atrial chamber dimension is normal. Aortic Valve The aortic valve is probable trileaflet. There is no aortic valve stenosis. There is no aortic valve regurgitation. Pulmonic Valve There is no pulmonic regurgitation. Mitral Valve The mitral valve has mildly calcified annulus. There is no mitral valve stenosis. There is mild to moderate mitral valve regurgitation. Tricuspid Valve There is trace tricuspid valve regurgitation. Mild pulmonary hypertension, estimated pulmonary arterial systolic pressure is 47 mmHg. Pericardium/Pleural There is no pericardial effusion. Inferior Vena Cava Normal inferior vena cava with >50% collapse upon inspiration consistent with normal right atrial pressure, 5 mmHg. Aorta The aortic root size at the sinus of Valsalva is normal. Left Ventricular Outflow Tract Name Value Normal LVOT 2D LVOT Diameter 2.0 cm LVOT Doppler LVOT Peak Gradient 5 mmHg LVOT Mean Gradient 3 mmHg LVOT VTI 27 cm LVOT VTI/AV VTI Ratio 0.[address]
[2020-07-19] MEDS: TOBRAMYCIN 0.3% OPHTH SOLN 5 ML 2 DROP EACH EYE ×6 (00:32→22:20)
[2020-07-19] MEDS: IPRATROPIUM BR 0.02% INH SOLN 0.5 MG/2.5 ML VIAL INHALATION ×4 (02:02→19:59)
[2020-07-19] MEDS: ALBUTEROL SULFATE NEB 2.5 MG/0.5 ML INH 5 MG INHALATION ×4 (02:02→19:59)
[2020-07-19 02:10] LABS: Glucose Point of Care 90 mg/dl (65-105)
[2020-07-19 06:35] LABS: Basophils Percent Auto 0.1 % (0.2-1.2); Hematocrit 33.7 % (42.0-52.0); Hemoglobin 10.6 g/dL (14.0-18.0); Immature Granulocyte Absolute 0.17 K/mm3 (0.00-0.031); Immature Granulocyte Percent A 0.9 % (0-0.5); Lymphocytes Absolute Auto 0.75 K/mm3 (0.9-3.2); Mean Corpuscular HGB Conc 31.5 g/dl (32-36); Mean Corpuscular Hemoglobin 24.6 pg (26-34); Mean Corpuscular Volume 78.2 fl (80-100); Mean Platelet Volume 9.9 fl (7.4-10.4); Monocytes Absolute Auto 1.6 K/mm3 (0.1-0.6); Monocytes Percent Auto 8.5 % (2.6-8.5); Neutrophils Absolute Auto 16.4 K/mm3 (1.3-6.7); Neutrophils Percent Auto 86.5 % (45.5-73.1); Platelet Count Result 341 k/mm3 (150-375); Red Blood Count 4.31 M/mm3 (4.6-6.20); Red Cell Distribution Width 14.2 % (11.5-14.5); White Blood Count 18.9 K/mm3 (4.5-10.0)
[2020-07-19] MEDS: GABAPENTIN 300 MG CAPSULE PO ×2 (06:48→14:51)
[2020-07-19 06:49] LABS: Alanine Aminotransferase 45 U/L (4-50); Albumin Level 3.5 g/dL (3.5-5.1); Alkaline Phosphatase 105 U/L (38-126); Anion Gap 8 mmol/L (8-16); Aspartate Amino Transferase 47 U/L (17-59); Bilirubin,Total 1.1 mg/dL (0.2-1.3); Blood Urea Nitrogen 28 mg/dL (9-20); CRP 0.6 mg/dL (<1.0); Calcium 8.6 mg/dL (8.4-10.2); Carbon Dioxide 30 mmol/L (22-30); Chloride 84 mmol/L (98-107); Estimated CRCL calculation 84 ml/min; Estimated Glomerular Filt Rate > 60; Glucose 99 mg/dL (75-110); Potassium 4.6 mmol/L (3.4-5.0); Sodium 122 mmol/L (137-145)
[2020-07-19 08:14] LABS: Glucose Point of Care 89 mg/dl (65-105)
[2020-07-19] MEDS: NYSTATIN 100,000 UNITS/ML SUSP 5 ML ORAL.SUSP PO ×4 (10:41→22:38)
[2020-07-19 10:42] LABS: Glucose Point of Care 128 mg/dl (65-105)
[2020-07-19] MEDS: amLODIPine BESYLATE 5 MG TABLET 10 MG PO (10:42)
[2020-07-19] MEDS: LORATADINE 10 MG TABLET PO (10:42)
[2020-07-19] MEDS: carvediloL 25 MG TABLET BY MOUTH (10:43)
[2020-07-19] MEDS: MUPIROCIN 2% OINT 22 GM TUBE 1 APPLIC TOPICAL ×2 (10:44→17:06)
[2020-07-19] MEDS: SILVERGEL (ELTA) 45 ML 1 APPLIC TOPICAL (10:45)
[2020-07-19] MEDS: INSULIN ASPART (*BKC) 100 UNITS/ML SUB-Q (10:54)
[2020-07-19] MEDS: INSULIN GLARGINE (*BKC) 100 UNITS/ML 36 UNITS SUB-Q (10:55)
[2020-07-19 11:00] LABS: Alveolar/Arterial O2 Gradient 184.6 mmHg; Base Excess ABG 2.9 mEq/l (+/-2.0); Fractional Inspired Oxygen 40 %; HCO3 ABG 27.4 mEq/l (22.0-26.0); Oxygen Content ABG 14.9 %vol (16.0-22.0); Oxygen Saturation ABG 88.2 % (95.0-100.0); Oxyhemoglobin 87.4 % THb (90.0-100.0); PCO2 ABG 41.8 mmHg (35.0-45.0); PO2 ABG 52.5 mmHg (80.0-100.0); PO2 FiO2 Ratio Arterial Blood 1.31 %; Total Hemoglobin 12.1 g/dL (12.0-18.0); pH ABG 7.435 (7.350-7.450)
[2020-07-19 11:01] LABS: Device NASAL CANNULA; Modified Allen's Test Unable to perform; Site Drawn RIGHT RADIAL
--- NOTE | 2020-07-19 11:47 | PM.IMPN ---
Progress Note: A&P Assessment and Plan (1) Fall: Code(s): W19.XXXA - Unspecified fall, initial encounter Status: Acute Assessment and Plan: Patient was found on the ground and states he hit his back and head -neuro exam was completely normal, no neurological deficits -CT of the brain and a CT spine were negative for acute pathology -continue neuro checks, hold Eliquis for at least 3 days -continue physical therapy and place but alarm on the patient -seems to be mechanical initially but patient may be slightly weak and would benefit from PT OT (2) Community acquired pneumonia: Qualifiers: Laterality: unspecified laterality Qualified Code(s): J18.9 - Pneumonia, unspecified organism Code(s): J18.9 - Pneumonia, unspecified organism Status: Acute Assessment and Plan: Worsening the last 2 days -patient is requiring more oxygen and ABG shows hypoxia. He is up to 7 L today -he was initially on azithromycin and ceftriaxone and this was changed to cefepime 07/18/20. He will also be continued on vancomycin which was started initially -He also has pleural effusion and 40mg of lasix x 1 has been given. He may need more of this if it helps as long as his sodium doesn't worsen. -Continue breathing treatments, solumedrol to 60mg Q12, and o2 supplementation. Will add continuos pulse ox -chest x-ray (and c-spine CT) today shows worsening pneumonia -pulmonology has been consulted -Symbicort started -PCR for COVID negative 07/16/20; patient unvaccinated but COVID less likely since it is one sided -PE less likely due to Eliquis -Consider repeat chest CT if he worsens. If the pleural effusions worsen and/or lasix doesn't help, may need thoracentesis. (3) Acute exacerbation of chronic obstructive pulmonary disease: Code(s): J44.1 - Chronic obstructive pulmonary disease with (acute) exacerbation Status: Acute Assessment and Plan: As above (4) Acute respiratory failure with hypoxia: Code(s): J96.01 - Acute respiratory failure with hypoxia Status: Acute Assessment and Plan: Due to above (5) Diabetes mellitus: Qualifiers: Diabetes mellitus type: type 2 Diabetes mellitus halfway insulin use: unspecified halfway insulin use status Diabetes mellitus complication status: with hyperglycemia Qualified Code(s): E11.65 - Type 2 diabetes mellitus with hyperglycemia Code(s): E11.9 - Type 2 diabetes mellitus without complications Status: Chronic Assessment and Plan: Last glucose 128 more elevated due to steroids -will continue Lantus, Novolog 4u WM, and SSI -A1c 9.3 last month -patient has a wound on his left great toe which should be closely monitored due to his diabetic state. No signs of osteomyelitis at this time. Silver gel has been added. (6) Atrial fibrillation: Qualifiers: Atrial fibrillation type: unspecified Qualified Code(s): I48.91 - Unspecified atrial fibrillation Code(s): I48.91 - Unspecified atrial fibrillation Status: Acute Assessment and Plan: Currently rate controlled and anticoagulated with Eliquis (Now on hold) -continue carvedilol (7) Diabetic polyneuropathy associated with type 2 diabetes mellitus: Code(s): E11.42 - Type 2 diabetes mellitus with diabetic polyneuropathy Status: Acute Assessment and Plan: Continue gabapentin (8) Oral thrush: Code(s): B37.0 - Candidal stomatitis Status: Acute Assessment and Plan: He was given Diflucan 400 mg IV 1 time -continue nystatin oral therapy -will need follow-up with this. If this does not improve it may not be thrush. Needs bx as stated below -HIV neg (9) Hyponatremia: Code(s): E87.1 - Hypo-osmolality and hyponatremia Status: Acute Assessment and Plan: Na 122 down from 134 on admission -pt not on IV fluids but drinks a lot of liq
[2020-07-19] MEDS: FUROSEMIDE INJ 40 MG/4 ML VIAL IV PUSH (12:07)
[2020-07-19 14:19] LABS: Procalcitonin 0.1 ng/mL
[2020-07-19 14:47] LABS: Glucose Point of Care 65 mg/dl (65-105)
[2020-07-19] MEDS: GLUCOSE ORAL GEL 15 GM OF GLUCSE IN 37.5 GM TUBE PO (14:49)
--- NOTE | 2020-07-19 14:58 | PM.CNPUL ---
Assessment and Plan Assessment and plan (1) Community acquired pneumonia: Qualifiers: Laterality: unspecified laterality Qualified Code(s): J18.9 - Pneumonia, unspecified organism Code(s): J18.9 - Pneumonia, unspecified organism Status: Acute Assessment and Plan: He has a RUL infiltrate, was on 4 rounds of antibiotics for sinus infections before admission to the hospital, admitted with a persistently elevated WBC, now 18.9 K with increased amounts of O2 compared to usual amount at home, 2-4 L/min, now on 7 L/min. Sputum is discolored, grayish and thick. Antibiotics have been broadened to include cefepime and vancomycin. He has been in the hospital less than a month ago for a similar presentation, and was on antibiotics again before returning. High probability of nosocomial pathogen. I agree with current antibiotics, will follow closely with you for progression of infiltrates. (2) Chronic obstructive pulmonary disease, unspecified: Code(s): J44.9 - Chronic obstructive pulmonary disease, unspecified Status: Acute Assessment and Plan: Mild per PFTs in December; clinically moderate to severe. Continue bronchodilator therapy. (3) Recurrent sinus infections: Code(s): J32.9 - Chronic sinusitis, unspecified Status: Acute Assessment and Plan: He had several sinus infections prior to this admission, and was on antibiotics for these. Consider sinus CT. (4) Acute and chronic respiratory failure: Code(s): J96.20 - Acute and chronic respiratory failure, unspecified whether with hypoxia or hypercapnia Status: Acute Assessment and Plan: Has been on O2 long standing, at home 2 L a minute at rest 4 L with exertion. ABG today showed pH 7.43 pCO2 41.8 PO2 52.5 H CO3 27.4. O2 saturation 88.2% on 5 L a minute. He required increase to 7 L a minute due t oworsening infiltrates. History of Present Illness History of Present Illness Consult date: 07/19/20 Requesting physician: Amanda Ferrera PA-C Reason for consult: pneumonia Chief complaint: COPD Exacerbation, Pneumonia Narrative: NEW: Del Schmitz is 70 yo man with COPD, chronic respiratory failure in at home 2 L/min & 4 L/min with exertion; HTN, DM type II, peripheral diabetic neuropathy, atrial fibrillation on chronic anticoagulation. He was admitted July 15 with complaints of increased shortness of breath for several days with sinus congestion, and a cough with grayish purulent sputum, without fever, chills, chest pain, palpitations, leg swelling, orthopnea, nausea, vomiting or diarrhea. He also had a L toe ulcer. He reports having 4 rounds of antibiotics prior to this admission. His COVID test was negative on July 16. Over the next 3 days, his O2 saturation dropped into the 60s, so he decided to come to the hospital. His CXR shows infiltrates; Chest CT showed patchy ground-glass opacities in the upper lobes c/w pneumonia, small effusions with atelectasis. He was started on Rocephin and azithromycin, bronchodilators. Today ABG on 5 L/min showed pH 7.43 ; pCO2 41.8 ; PO2 52.5 ; HCO3 27.4. ; O2 saturation 88.2% on 5 L a minute. He is now on increased oxygen flow at 7 L/min. On July 18, antibiotic therapy was changed to cefepime and vancomycin. He had an admission in June for community acquired pneumonia and was discharged June 24. He fell earlier today, had abrasion on L flank. CT head showed no acute injury. BNP was mildly increased 1270. Review of Systems Review of Systems: All systems reviewed & are unremarkable except as noted in HPI and below PMFSH Past Medical History Medical History (Updated 07/21/20 @ 11:44 by Bud Lorenzana MD) [place]
[2020-07-19 15:16] LABS: Glucose Point of Care 66 mg/dl (65-105)
[2020-07-19] MEDS: DEXTROSE 50% 25 GM/50 ML SYRINGE IV PUSH ×3 (15:20→18:33)
[2020-07-19 15:57] LABS: Glucose Point of Care 134 mg/dl (65-105)
[2020-07-19] MEDS: methylPREDNISolone SOD SUCC 125 MG VIAL 60 MG IV PUSH (17:07)
[2020-07-19 18:37] LABS: Glucose Point of Care 58 mg/dl (65-105)
[2020-07-19 18:37] LABS: Glucose Point of Care 88 mg/dl (65-105)
[2020-07-19 19:26] LABS: Glucose Point of Care 106 mg/dl (65-105)
[2020-07-19] MEDS: ACETAMINOPHEN/CODEINE (*CRX) 300/30 MG TABLET 1 TAB PO (20:17)
[2020-07-20] VITALS (21 sets, daily range): BP systolic 168–179; BP diastolic 68–82; PULSE 60–89; RESP 14–22; TEMP 36.3–36.5; O2SAT 84–96
[2020-07-20] MEDS: IPRATROPIUM BR 0.02% INH SOLN 0.5 MG/2.5 ML VIAL INHALATION ×4 (00:22→19:31)
[2020-07-20] MEDS: ALBUTEROL SULFATE NEB 2.5 MG/0.5 ML INH 5 MG INHALATION ×4 (00:22→19:31)
[2020-07-20] MEDS: TOBRAMYCIN 0.3% OPHTH SOLN 5 ML 2 DROP EACH EYE ×6 (01:10→22:29)
--- NOTE | 2020-07-20 04:04 | PC.NURSE ---
7p-7a: SN contacted Free Charge Nurse (Mindi) to ilicit the aid of moving patient either closer to nursing station and/or a sitter. Pt demonstrated bouts of continuous confusion accompanied w/ combative behaviors. O2 sats at 90% on 7L High Flow. Patient began pulling off his n/c and pulling out peripheral IV in R hand. Pt managed to get out of bed but was not easily redirected x 3 health child care development specialist as he displayed combative behaviors w/ staff while pushing and shoving. Attempted to give scheduled PO meds and pt began chewing his meds. Required multiple repetitious verbal cueing to swallow meds w/o chewing but to no avail. The only PO that he was able to consume was the liquid Nystatin, the rest he began to choke while trying to swallow water w/ pills. Dr. Jacey Helms notified and aware w/ orders for RT to administer treatment NOW (approx 0030) and apply BiPAP. Dr. Helms further instructed that it won't be necessary to resume IV access at this time. Will endorse to AM nurse and continue to monitor.
[2020-07-20 04:12] LABS: Glucose Point of Care 116 mg/dl (65-105)
[2020-07-20 06:17] LABS: Basophils Percent Auto 0.1 % (0.2-1.2); Hematocrit 34.1 % (42.0-52.0); Hemoglobin 11.1 g/dL (14.0-18.0); Immature Granulocyte Absolute 0.17 K/mm3 (0.00-0.031); Immature Granulocyte Percent A 0.9 % (0-0.5); Lymphocytes Absolute Auto 0.68 K/mm3 (0.9-3.2); Lymphocytes Percent Auto 3.7 % (18.3-44.2); Mean Corpuscular HGB Conc 32.6 g/dl (32-36); Mean Corpuscular Hemoglobin 25.3 pg (26-34); Mean Corpuscular Volume 77.7 fl (80-100); Mean Platelet Volume 9.7 fl (7.4-10.4); Monocytes Absolute Auto 1.5 K/mm3 (0.1-0.6); Monocytes Percent Auto 8.1 % (2.6-8.5); Neutrophils Percent Auto 87.2 % (45.5-73.1); Platelet Count Result 329 k/mm3 (150-375); Red Blood Count 4.39 M/mm3 (4.6-6.20); Red Cell Distribution Width 14.4 % (11.5-14.5); White Blood Count 18.4 K/mm3 (4.5-10.0)
[2020-07-20 06:33] LABS: Anion Gap 7 mmol/L (8-16); Blood Urea Nitrogen 29 mg/dL (9-20); Calcium 8.7 mg/dL (8.4-10.2); Carbon Dioxide 31 mmol/L (22-30); Chloride 86 mmol/L (98-107); Estimated CRCL calculation 94 ml/min; Estimated Glomerular Filt Rate > 60; Glucose 81 mg/dL (75-110); Magnesium 1.9 mg/dL (1.6-2.3); Potassium 4.4 mmol/L (3.4-5.0); Sodium 124 mmol/L (137-145)
[2020-07-20 07:41] LABS: Glucose Point of Care 72 mg/dl (65-105)
[2020-07-20 08:06] LABS: Alveolar/Arterial O2 Gradient 241.6 mmHg; Base Excess ABG 6.6 mEq/l (+/-2.0); Device NON-INVASIVE VENT; Fractional Inspired Oxygen 50 %; HCO3 ABG 31.7 mEq/l (22.0-26.0); Modified Allen's Test Pass; Oxygen Content ABG 15.5 %vol (16.0-22.0); Oxygen Saturation ABG 92.3 % (95.0-100.0); Oxyhemoglobin 91.6 % THb (90.0-100.0); PCO2 ABG 47.4 mmHg (35.0-45.0); PO2 ABG 61.6 mmHg (80.0-100.0); PO2 FiO2 Ratio Arterial Blood 1.23 %; Site Drawn RIGHT RADIAL; pH ABG 7.443 (7.350-7.450)
[2020-07-20 08:07] LABS: Non-Invasive Expiratory Pressure 8 CMH2O; Non-Invasive Inspiratory Pressure 16 CMH2O; Non-Invasive Vent Rate 4 /MIN
--- NOTE | 2020-07-20 08:13 | PM.IMPN ---
Progress Note: A&P Assessment and Plan (1) Community acquired pneumonia: Qualifiers: Laterality: unspecified laterality Qualified Code(s): J18.9 - Pneumonia, unspecified organism Code(s): J18.9 - Pneumonia, unspecified organism Status: Acute Assessment and Plan: Patient present with SOB. WBC 13K but no fevers. CRP and procalcitonin levels normal. CT chest showing patchy groundglass opacities in the bilateral upper lobes and small bilateral pleural effusions with mild peripheral atelectasis versus pulmonary edema. CXR (rib) showing progression of patchy bilateral PNA worse in the RUL. PCR for COVID negative 07/16/20; patient unvaccinated but COVID less likely since it is one sided. He was initially on azithromycin and ceftriaxone and this was changed to cefepime 07/18/20. He has been on Vanco since admission 07/16. WBC elevated but currently on steroids. Pulm consulted. Continue neb treatments. (2) Acute exacerbation of chronic obstructive pulmonary disease: Code(s): J44.1 - Chronic obstructive pulmonary disease with (acute) exacerbation Status: Acute Assessment and Plan: As above. Symbicort started (3) Acute and chronic respiratory failure: Code(s): J96.20 - Acute and chronic respiratory failure, unspecified whether with hypoxia or hypercapnia Status: Acute Assessment and Plan: Due to above. ABG looks better today. Wean off BiPAP to NC today. If stable, check swallow study. COntine BiPAP at night. (4) Fall: Code(s): W19.XXXA - Unspecified fall, initial encounter Status: Acute Assessment and Plan: Patient was found on the ground and states he hit his back and head on 07/19. Neuro exam was completely normal at the time. CT of the brain and a CT spine were negative for acute pathology. No rib fracture by x-ray. More confused yesterday and overnight but AOx4 this morning. Hold Eliquis for now but resume in the morning. Continue physical therapy and place bed alarm on the patient. (5) Hyponatremia: Code(s): E87.1 - Hypo-osmolality and hyponatremia Status: Acute Assessment and Plan: Na dropped to 121 on 07/18 from 134 on admission. Urine Na <5. Not on diuretics but is on Cymbalta. Unclear if he is fluid overloaded or dry. Pt not on IV fluids but drinks a lot of free fluids. He does have PNA, consider legionella with studies pending. He also has a hx of hyponatremia ranging from 125-135. Currently being fluid restricted. Lasix IV given once. Na today better at 124. Will check serial Na levels. (6) Diabetes mellitus: Qualifiers: Diabetes mellitus complication status: with hyperglycemia Diabetes mellitus intermediate insulin use: unspecified intermediate insulin use status Diabetes mellitus type: type 2 Qualified Code(s): E11.65 - Type 2 diabetes mellitus with hyperglycemia Code(s): E11.9 - Type 2 diabetes mellitus without complications Status: Chronic Assessment and Plan: A1c 9.3 last month. The patient's blood glucose was reviewed on 07/20/20. Glucose with lows at times. Meal time insulin stopped and Lantus dose decreased due to low glucose. Glucose well controlled. Continue AccuCheks covering with sliding scale. Hypoglycemia protocol available as needed. Hold Lantus until patient eating okay. (7) Toe ulcer due to DM: Code(s): E11.621 - Type 2 diabetes mellitus with foot ulcer; L97.509 - Non-pressure chronic ulcer of other part of unspecified foot with unspecified severity Status: Acute Assessment and Plan: Patient has a wound on his left great toe which should be closely monitored due to his diabetic state. No signs of osteomyelitis at this time. Continue Silver gel and routine wound care. (8) Oral thrush: Code(s): B37.0 - Candidal stomatitis Status: Acute Assessment and Plan: He was given Diflucan 400 mg IV 1 time
[2020-07-20 10:14] LABS: Glucose Point of Care 73 mg/dl (65-105)
[2020-07-20] MEDS: MUPIROCIN 2% OINT 22 GM TUBE 1 APPLIC TOPICAL ×2 (10:35→17:31)
[2020-07-20] MEDS: SILVERGEL (ELTA) 45 ML 1 APPLIC TOPICAL (10:35)
--- NOTE | 2020-07-20 10:36 | PCSTNOTE ---
Please refer to the Bedside Swallow Evaluation in the EMR. Please note, silent aspiration cannot be ruled out at bedside.
[2020-07-20 11:20] LABS: Sodium 124 mmol/L (137-145)
[2020-07-20 12:28] LABS: Pneumococcal Antigen Urine Not Detected (Not Detected)
[2020-07-20 12:31] LABS: Glucose Point of Care 86 mg/dl (65-105)
[2020-07-20 12:45] LABS: Vancomycin Trough 16.3 ug/mL (10.0-20.0)
--- NOTE | 2020-07-20 13:06 | PCSTNOTE ---
Modified Barium Swallow study was scheduled for 1 pm. Physician placed on hold due to patient being short of breath and requiring 8 litres of oxygen at this time. We will try again this afternoon.
[2020-07-20] MEDS: FUROSEMIDE INJ 40 MG/4 ML VIAL 20 MG IV PUSH (13:12)
--- NOTE | 2020-07-20 16:01 | PCSTNOTE ---
Please refer to the Modified Barium Swallow Evaluation in the EMR.
--- NOTE | 2020-07-20 16:38 | PM.PNPUL ---
Progress Note: A&P Assessment and Plan (1) Acute and chronic respiratory failure: Code(s): J96.20 - Acute and chronic respiratory failure, unspecified whether with hypoxia or hypercapnia Status: Acute Assessment and Plan: Has been on O2 long standing, at home 2 L a minute at rest 4 L with exertion. ABG July 19 = pH 7.43;pCO2 41.8; pO2 52.5, HCO3 27.4, saturation 88.2% on 5 L a minute. ABG today improved 7.44 / 47 / 61/31/92% on BiPAP 16/8 and 50%. This was before he was placed on High flow (2) Community acquired pneumonia: Qualifiers: Laterality: unspecified laterality Qualified Code(s): J18.9 - Pneumonia, unspecified organism Code(s): J18.9 - Pneumonia, unspecified organism Status: Acute Assessment and Plan: He has bilateral upper lobe infiltrates, now with progression and higher O2 requirements. Has moved to U. No sputum results. Sputum remains discolored, grayish and thick. WBC is still 18K. Continues to receive cefepime and vancomycin. Ur antigen for S pneumococcus is negative. (3) Chronic obstructive pulmonary disease, unspecified: Code(s): J44.9 - Chronic obstructive pulmonary disease, unspecified Status: Acute Assessment and Plan: Mild per PFTs in December; clinically moderate to severe. Continue bronchodilator therapy. Subjective Date/time seen: 07/20/20 16:38 Patient seen in f/u for pneumonia, acute hypoxemic respiratory failure. He has COPD, chronic respiratory failure on O2 at home 2 L/min at rest, 4 L/min with exertion, admitted July 15 with pneumonia. He had an episode last night with confusion, pulled off his BiPAP, got a dose of Haldol IM then dropped his heart rate to the 20s. He was moved to IMU now in 232. He is alert, on High flow 81% and 60 L/min. His breathing is more tenuous, however he is now alert and responsive, improved compared to last night. Review of Systems Review of Systems: All systems reviewed & are unremarkable except as noted in HPI and below Exam Const: General: comfortable; No in distress HENMT: Mouth: Yes dry mucous membranes Eyes: General: appearance normal, both eyes and all related structures Neck: Neck: No no JVD Chest: Other: Normal expansion Resp: Auscultation: crackles diffuse and diminished lung sounds Cardio: Rate: regular rate Rhythm: abnormal rhythm regularly irregular GI: Auscultation: normal bowel sounds Skin: General skin exam: normal color (trace edema in the ankles) Neuro: Speech: normal speech Extrem: General: pedal edema (trace; no clubbing or cyanosis) bilaterally Left lower extremity: foot (L toe ulcer) Psych: Mental Status: mental status grossly normal Objective Data Vital Signs Vital Signs: Vital Signs - 24 hr 07/19/20 20:00 07/19/20 20:05 07/19/20 20:13 Temperature Pulse Rate 65 62 Respiratory Rate 18 16 Blood Pressure Pulse Oximetry 92 07/19/20 22:00 07/20/20 00:31 07/20/20 00:36 Temperature 36.3 C L Pulse Rate 61 64 Respiratory Rate 18 22 H Blood Pressure 144/91 H Pulse Oximetry 90 90 07/20/20 00:37 07/20/20 01:20 07/20/20 02:58 Temperature Pulse Rate 65 61 65 Respiratory Rate 22 H 20 14 Blood Pressure Pulse Oximetry 92 93 07/20/20 06:00 07/20/20 08:00 07/20/20 08:27 Temperature 36.5 C Pulse Rate 66 62 Respiratory Rate 20 20 Blood Pressure 168/77 H Pulse Oximetry 93 96 07/20/20 08:30 07/20/20 08:38 07/20/20 12:45 Temperature Pulse Rate 65 Respiratory Rate 20 Blood Pressure Pulse Oximetry 91 84 L 07/20/20 12:50 07/20/20 14:00 07/20/20 14:25 Temperature 36.3 C L Pulse Rate 67 64 60 Respiratory Rate 22 H 20 Blood Pressure 178/82 H 170/68 H Pulse Oximetry 92 94 07/20/20 14:32
[2020-07-20] MEDS: amLODIPine BESYLATE 5 MG TABLET 10 MG PO (16:57)
[2020-07-20] MEDS: LORATADINE 10 MG TABLET PO (16:57)
[2020-07-20] MEDS: VANCOMYCIN HCL 1,500 MG in SODIUM CHLORIDE 0.9% IV 500 ML 250 MG IVPB (17:01)
[2020-07-20 17:22] LABS: Glucose Point of Care 68 mg/dl (65-105)
[2020-07-20] MEDS: GLUCOSE ORAL GEL 15 GM OF GLUCSE IN 37.5 GM TUBE PO (17:28)
[2020-07-20] MEDS: NYSTATIN 100,000 UNITS/ML SUSP 5 ML ORAL.SUSP PO ×2 (17:31→22:26)
[2020-07-20] MEDS: methylPREDNISolone SOD SUCC 125 MG VIAL 60 MG IV PUSH (17:33)
[2020-07-20 17:51] LABS: Glucose Point of Care 105 mg/dl (65-105)
[2020-07-20 17:55] LABS: Sodium 124 mmol/L (137-145)
[2020-07-20] MEDS: ACETAMINOPHEN/CODEINE (*CRX) 300/30 MG TABLET 1 TAB PO (18:48)
[2020-07-20 20:25] LABS: Legionella pneumophila Ag Ur Not Detected (Not Detected)
[2020-07-20] MEDS: IMIPRAMINE HCL 25 MG TABLET 50 MG PO (22:32)
[2020-07-20] MEDS: carvediloL 25 MG TABLET BY MOUTH (22:32)
[2020-07-20] MEDS: SENNOSIDES 8.6 MG TABLET PO (22:35)
[2020-07-21] VITALS (28 sets, daily range): BP systolic 155–182; BP diastolic 40–93; PULSE 64–90; RESP 15–28; TEMP 36.2–36.6; O2SAT 89–95
[2020-07-21] MEDS: ALBUTEROL SULFATE NEB 2.5 MG/0.5 ML INH 5 MG INHALATION ×4 (01:51→22:25)
[2020-07-21] MEDS: IPRATROPIUM BR 0.02% INH SOLN 0.5 MG/2.5 ML VIAL INHALATION ×4 (01:51→22:25)
[2020-07-21 02:40] LABS: Glucose Point of Care 214 mg/dl (65-105)
[2020-07-21 02:46] LABS: Basophils Percent Auto 0.1 % (0.2-1.2); Hematocrit 30.6 % (42.0-52.0); Hemoglobin 10.1 g/dL (14.0-18.0); Immature Granulocyte Absolute 0.08 K/mm3 (0.00-0.031); Immature Granulocyte Percent A 0.6 % (0-0.5); Lymphocytes Absolute Auto 0.53 K/mm3 (0.9-3.2); Lymphocytes Percent Auto 3.8 % (18.3-44.2); Mean Corpuscular Hemoglobin 25.1 pg (26-34); Mean Corpuscular Volume 76.1 fl (80-100); Mean Platelet Volume 10.2 fl (7.4-10.4); Monocytes Absolute Auto 0.9 K/mm3 (0.1-0.6); Neutrophils Absolute Auto 12.6 K/mm3 (1.3-6.7); Neutrophils Percent Auto 89.5 % (45.5-73.1); Platelet Count Result 299 k/mm3 (150-375); Red Blood Count 4.02 M/mm3 (4.6-6.20); Red Cell Distribution Width 14.4 % (11.5-14.5); White Blood Count 14.1 K/mm3 (4.5-10.0)
[2020-07-21 03:47] LABS: Anion Gap 5 mmol/L (8-16); Blood Urea Nitrogen 21 mg/dL (9-20); Carbon Dioxide 32 mmol/L (22-30); Chloride 84 mmol/L (98-107); Estimated CRCL calculation 106 ml/min; Estimated Glomerular Filt Rate > 60; Glucose 277 mg/dL (75-110); Magnesium 1.7 mg/dL (1.6-2.3); Phosphorus 2.4 mg/dL (2.5-4.5); Potassium 4.4 mmol/L (3.4-5.0); Sodium 121 mmol/L (137-145)
[2020-07-21 04:19] LABS: Thyroid Stimulating Hormone Reflex 0.463 uIU/mL (0.465-4.68)
[2020-07-21] MEDS: TOBRAMYCIN 0.3% OPHTH SOLN 5 ML 2 DROP EACH EYE ×5 (04:36→21:46)
[2020-07-21 04:52] LABS: Free T4 Free Thyroxine Reflex 1.69 ng/dL (0.78-2.19)
[2020-07-21 04:53] LABS: Folic Acid 8.3 ng/mL (2.76->20)
[2020-07-21 04:56] LABS: Alveolar/Arterial O2 Gradient 465.7 mmHg; Device HIGH FLOW NASAL CANN; Fractional Inspired Oxygen 80 %; HCO3 ABG 32.9 mEq/l (22.0-26.0); Modified Allen's Test Pass; Oxygen Content ABG 15.5 %vol (16.0-22.0); Oxygen Saturation ABG 90.1 % (95.0-100.0); PCO2 ABG 47.1 mmHg (35.0-45.0); PO2 ABG 55.3 mmHg (80.0-100.0); PO2 FiO2 Ratio Arterial Blood 0.69 %; Site Drawn LEFT RADIAL; Total Hemoglobin 12.4 g/dL (12.0-18.0); pH ABG 7.462 (7.350-7.450)
[2020-07-21] MEDS: FUROSEMIDE INJ 40 MG/4 ML VIAL IV PUSH (05:07)
--- NOTE | 2020-07-21 05:09 | PM.EVENT ---
Event Note Event Note Event Note: 07/21/2020 at 4:30 a.m. Nursing staff notified me that the patient had had progressive increasing oxygen requirement throughout the course of the night. He went from 6 L high-flow up to 15 L high-flow. He did tolerate BiPAP for most of the night but requested a break from the BiPAP. When they put him back on nasal cannula he was requiring 15 L in satting only 91%. Stat ABG was obtained and results were reviewed. Stat chest x-ray was obtained and demonstrated worsening bilateral infiltrates. The patient was noted to have generalized edema. On exam he had crackles bilaterally with faint end-expiratory wheezing. Patient did not appear to be any acute distress. One dose of IV Lasix 40 mg was administered. Given that the patient is on 15 L high-flow and was at the maximum support that could be given on medical floor patient will be transferred IMU. Given his generalized edema and worsening infiltrates on concerned the patient may have a component of diastolic CHF exacerbation. 1. Worsening hypoxic respiratory failure--suspicious for CHF exacerbation complicating underlying COPD and or pneumonia. Review of status dose of IV Lasix and transfer the patient to IMU for closer monitoring. 33 minutes spent in critical care activities. This case had a high probability of a clinically significant, sudden, or life threatening deterioration of this patient's condition which required my full and direct attention, intervention and personal management.
--- NOTE | 2020-07-21 06:01 | PC.NURSE ---
This patient, Del Schmitz, was received from [[id number] ] on 07/21/20 at 0601. Patient/family oriented to unit policies and routines
[2020-07-21] MEDS: methylPREDNISolone SOD SUCC 125 MG VIAL 60 MG IV PUSH ×2 (06:11→17:46)
[2020-07-21 06:39] LABS: Total Triiodothyronine (T3) 0.66 NG/ML (0.97-1.69)
--- NOTE | 2020-07-21 08:00 | PCOTNOTE ---
Per RN, patient is on hold for OT treatment today due to continuous BIPAP. Will follow.
--- NOTE | 2020-07-21 08:01 | PCPTNOTE ---
Patient transferred to IMU from medical floor due to change in medical status. Nursing reports to hold PT today due to patient being on continues BIPAP. PT will continue to follow when patient is is able to participate.
[2020-07-21 09:06] LABS: Glucose Point of Care 276 mg/dl (65-105)
--- NOTE | 2020-07-21 09:26 | PCSTNOTE ---
Patient refused treatment this session, stating he was too sick today to participate, that he does not need it anyway. Therapy was to focus on improving lingual movement for swallowing pills and patient stated that he did not need this as he was ready to go anyway (pass away), however he did agree to me returning tomorrow to see if he felt any better. Therapy will continue.
[2020-07-21] MEDS: INSULIN ASPART (*BKC) 100 UNITS/ML SUB-Q ×3 (09:58→17:48)
[2020-07-21] MEDS: VANCOMYCIN HCL 1,500 MG in SODIUM CHLORIDE 0.9% IV 500 ML 250 MG IVPB (09:59)
[2020-07-21] MEDS: carvediloL 25 MG TABLET BY MOUTH ×2 (10:00→21:38)
[2020-07-21] MEDS: NYSTATIN 100,000 UNITS/ML SUSP 5 ML ORAL.SUSP PO ×4 (10:02→21:39)
--- NOTE | 2020-07-21 11:02 | PM.IMPN ---
Progress Note: A&P Assessment and Plan (1) Community acquired pneumonia: Qualifiers: Laterality: unspecified laterality Qualified Code(s): J18.9 - Pneumonia, unspecified organism Code(s): J18.9 - Pneumonia, unspecified organism Status: Acute Assessment and Plan: Patient present with SOB. WBC 13K but no fevers. CRP and procalcitonin levels normal. CT chest showing patchy groundglass opacities in the bilateral upper lobes and small bilateral pleural effusions with mild peripheral atelectasis versus pulmonary edema. CXR 07/21 showing progression of patchy bilateral PNA. PCR for COVID negative 07/16/20. He was initially on azithromycin and ceftriaxone and this was changed to cefepime 07/18/20. He has been on Vanco since admission 07/16. WBC elevated but currently on steroids. Pulm consulted. Continue neb treatments. Repeat COVID swab (2) Acute exacerbation of chronic obstructive pulmonary disease: Code(s): J44.1 - Chronic obstructive pulmonary disease with (acute) exacerbation Status: Acute Assessment and Plan: As above. Symbicort started (3) Acute and chronic respiratory failure: Code(s): J96.20 - Acute and chronic respiratory failure, unspecified whether with hypoxia or hypercapnia Status: Acute Assessment and Plan: Due to above. ABG 7.46/47/55 on HFNC. Weaned off BiPAP to HFNC today. MBS yesterday showing patient can do well with mince and moist but had difficulty with pills. Pills to be crushed. Contine BiPAP at night. Continue ST. (4) Fall: Code(s): W19.XXXA - Unspecified fall, initial encounter Status: Acute Assessment and Plan: Patient was found on the ground and states he hit his back and head on 07/19. Neuro exam was completely normal at the time. CT of the brain and a CT spine were negative for acute pathology. No rib fracture by x-ray. More confused yesterday and overnight but now AOx4. Continue physical therapy and place bed alarm on the patient. (5) Hyponatremia: Code(s): E87.1 - Hypo-osmolality and hyponatremia Status: Acute Assessment and Plan: Na dropped to 121 on 07/18 from 134 on admission. He has a hx of hyponatremia ranging from 125-135. Urine Na <5. Not on home diuretics but is on Cymbalta. He has been receiving Lasix intermittently. Unclear if he is fluid overloaded or dry. Pt not on IV fluids but drinks a lot of free fluids. Continue fluid restrictions. He does have PNA currently being treated. Legionella negative. Na back down to 121 today probably related to the Lasix. Could be dry. Will hold on repeating Lasix and give 1L IV fluids. 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 The patient's blood glucose was reviewed on 07/21 Glucose was low at times and Meal time insulin stopped and Lantus dose decreased. Glucose higher now so will resume lantus since he is eating and start at lower dose. Continue AccuCheks covering with sliding scale. Hypoglycemia protocol available as needed. (7) Toe ulcer due to DM: Code(s): E11.621 - Type 2 diabetes mellitus with foot ulcer; L97.509 - Non-pressure chronic ulcer of other part of unspecified foot with unspecified severity Status: Acute Assessment and Plan: Patient has a wound on his left great toe which should be closely monitored due to his diabetic state. No signs of osteomyelitis at this time. Continue Silver gel and routine wound care. (8) Oral thrush: Code(s): B37.0 - Candidal stomatitis Status: Acut
[2020-07-21] MEDS: amLODIPine BESYLATE 5 MG TABLET 10 MG PO (11:44)
[2020-07-21] MEDS: LORATADINE 10 MG TABLET PO (11:44)
[2020-07-21] MEDS: SILVERGEL (ELTA) 45 ML 1 APPLIC TOPICAL (11:44)
[2020-07-21 12:17] LABS: Glucose Point of Care 256 mg/dl (65-105)
[2020-07-21 12:17] LABS: Sodium 123 mmol/L (137-145)
[2020-07-21] MEDS: POTASSIUM/PHOSPHORUS/SODIUM 1.5 GM PACKET 1 PACKET PO (13:12)
[2020-07-21] MEDS: APIXABAN 5 MG TABLET PO ×2 (13:12→21:38)
[2020-07-21] MEDS: CYANOCOBALAMIN INJ 1,000 MCG/ML VIAL 1000 MCG IM (13:12)
[2020-07-21] MEDS: SODIUM CHLORIDE 0.9% IV 1,000 ML 100 ML IV CONT (13:13)
[2020-07-21 17:40] LABS: Glucose Point of Care 230 mg/dl (65-105)
[2020-07-21 18:05] LABS: SARS-CoV-2 RNA PCR Negative
[2020-07-21 18:26] LABS: Sodium 122 mmol/L (137-145)
[2020-07-21] MEDS: LORazepam INJ (*CRX) 2 MG/ML VIAL 0.5 MG IV PUSH (18:27)
[2020-07-21 20:01] LABS: Alveolar/Arterial O2 Gradient 319.9 mmHg; Base Excess ABG 9.2 mEq/l (+/-2.0); Fractional Inspired Oxygen 60 %; HCO3 ABG 33.6 mEq/l (22.0-26.0); Modified Allen's Test Unable to perform; Oxygen Content ABG 15.3 %vol (16.0-22.0); Oxygen Saturation ABG 92.2 % (95.0-100.0); Oxyhemoglobin 90.8 % THb (90.0-100.0); PCO2 ABG 44.9 mmHg (35.0-45.0); PO2 ABG 58.5 mmHg (80.0-100.0); PO2 FiO2 Ratio Arterial Blood 0.98 %; Site Drawn RIGHT RADIAL; pH ABG 7.492 (7.350-7.450)
[2020-07-21 20:02] LABS: Device NON-INVASIVE VENT; Non-Invasive Expiratory Pressure 8 CMH2O; Non-Invasive Inspiratory Pressure 16 CMH2O; Non-Invasive Vent Rate 20 /MIN
[2020-07-21 21:19] LABS: Glucose Point of Care 204 mg/dl (65-105)
[2020-07-21] MEDS: IMIPRAMINE HCL 25 MG TABLET 50 MG PO (21:38)
[2020-07-21] MEDS: SENNOSIDES 8.6 MG TABLET PO (21:41)
[2020-07-21] MEDS: INSULIN GLARGINE (*BKC) 100 UNITS/ML 22 UNITS SUB-Q (21:45)
[2020-07-21] MEDS: OLANZapine 10 MG INJ VIAL 2.5 MG IM (22:41)
[2020-07-21] MEDS: WATER, STERILE FOR INJECTION 10 ML VIAL XX (22:48)
[2020-07-21 23:46] LABS: Sodium 124 mmol/L (137-145)
[2020-07-22] VITALS (28 sets, daily range): BP systolic 149–199; BP diastolic 54–75; PULSE 35–81; RESP 17–30; TEMP 36.5–37.2; O2SAT 92–97
[2020-07-22] MEDS: OLANZapine 10 MG INJ VIAL 5 MG IM ×2 (02:14→05:24)
[2020-07-22] MEDS: TOBRAMYCIN 0.3% OPHTH SOLN 5 ML 2 DROP EACH EYE ×5 (02:14→18:07)
[2020-07-22] MEDS: WATER, STERILE FOR INJECTION 10 ML VIAL XX (02:21)
[2020-07-22] MEDS: ALBUTEROL SULFATE NEB 2.5 MG/0.5 ML INH 5 MG INHALATION ×4 (02:52→20:35)
[2020-07-22] MEDS: IPRATROPIUM BR 0.02% INH SOLN 0.5 MG/2.5 ML VIAL INHALATION ×4 (02:53→20:35)
[2020-07-22] MEDS: VANCOMYCIN HCL 1,500 MG in SODIUM CHLORIDE 0.9% IV 500 ML 250 MG IVPB ×2 (03:33→23:26)
[2020-07-22 05:11] LABS: Basophils Percent Auto 0.1 % (0.2-1.2); Hematocrit 32.9 % (42.0-52.0); Hemoglobin 10.6 g/dL (14.0-18.0); Immature Granulocyte Absolute 0.15 K/mm3 (0.00-0.031); Immature Granulocyte Percent A 0.8 % (0-0.5); Lymphocytes Absolute Auto 0.75 K/mm3 (0.9-3.2); Lymphocytes Percent Auto 3.8 % (18.3-44.2); Mean Corpuscular HGB Conc 32.2 g/dl (32-36); Mean Corpuscular Hemoglobin 25.2 pg (26-34); Mean Corpuscular Volume 78.1 fl (80-100); Mean Platelet Volume 9.7 fl (7.4-10.4); Monocytes Absolute Auto 1.4 K/mm3 (0.1-0.6); Monocytes Percent Auto 7.2 % (2.6-8.5); Neutrophils Absolute Auto 17.3 K/mm3 (1.3-6.7); Neutrophils Percent Auto 88.1 % (45.5-73.1); Platelet Count Result 325 k/mm3 (150-375); Red Blood Count 4.21 M/mm3 (4.6-6.20); Red Cell Distribution Width 14.6 % (11.5-14.5); White Blood Count 19.6 K/mm3 (4.5-10.0)
[2020-07-22 05:27] LABS: Alanine Aminotransferase 33 U/L (4-50); Albumin Level 3.2 g/dL (3.5-5.1); Alkaline Phosphatase 99 U/L (38-126); Anion Gap 6 mmol/L (8-16); Aspartate Amino Transferase 28 U/L (17-59); Bilirubin,Total 1.7 mg/dL (0.2-1.3); Blood Urea Nitrogen 23 mg/dL (9-20); Calcium 8.2 mg/dL (8.4-10.2); Carbon Dioxide 31 mmol/L (22-30); Chloride 89 mmol/L (98-107); Estimated CRCL calculation 122 ml/min; Estimated Glomerular Filt Rate > 60; Glucose 211 mg/dL (75-110); Lactate Dehydrogenase 660 U/L (313-618); Magnesium 1.7 mg/dL (1.6-2.3); Phosphorus 2.2 mg/dL (2.5-4.5); Potassium 4.1 mmol/L (3.4-5.0); Sodium 126 mmol/L (137-145)
--- NOTE | 2020-07-22 05:32 | PC.NURSE ---
Pt anxious and restless. Unable to be redirected. Pt continues to grab and pull at gonzalez cath and self remove BIPAP mask. Cannot maintain sats even for brief periods of time. Pt mentation poor and confused. Unable to reorient. Sitter at bedside unable to act quick enough to prevent pt from self removing mask. Provider on floor and aware. Orders received.
[2020-07-22] MEDS: methylPREDNISolone SOD SUCC 125 MG VIAL 60 MG IV PUSH ×2 (06:00→18:19)
[2020-07-22 07:52] LABS: Glucose Point of Care 210 mg/dl (65-105)
[2020-07-22] MEDS: INSULIN ASPART (*BKC) 100 UNITS/ML SUB-Q ×3 (09:12→18:08)
[2020-07-22] MEDS: POTASSIUM/PHOSPHORUS/SODIUM 1.5 GM PACKET 1 PACKET PO (09:15)
[2020-07-22] MEDS: SILVERGEL (ELTA) 45 ML 1 APPLIC TOPICAL (09:16)
[2020-07-22] MEDS: NYSTATIN 100,000 UNITS/ML SUSP 5 ML ORAL.SUSP PO (09:16)
[2020-07-22] MEDS: MUPIROCIN 2% OINT 22 GM TUBE 1 APPLIC TOPICAL ×2 (09:16→18:08)
[2020-07-22] MEDS: amLODIPine BESYLATE 5 MG TABLET 10 MG PO (09:17)
[2020-07-22] MEDS: APIXABAN 5 MG TABLET PO ×2 (09:17→20:38)
[2020-07-22] MEDS: carvediloL 25 MG TABLET BY MOUTH ×2 (09:17→20:38)
[2020-07-22] MEDS: LORATADINE 10 MG TABLET PO (09:18)
--- NOTE | 2020-07-22 10:48 | PM.IMPN ---
Progress Note: A&P Assessment and Plan (1) Community acquired pneumonia: Qualifiers: Laterality: unspecified laterality Qualified Code(s): J18.9 - Pneumonia, unspecified organism Code(s): J18.9 - Pneumonia, unspecified organism Status: Acute Assessment and Plan: Patient present with SOB. WBC 13K but no fevers. CRP and procalcitonin levels normal. CT chest showing patchy groundglass opacities in the bilateral upper lobes and small bilateral pleural effusions. CXR 07/21 showing progression of patchy bilateral PNA. PCR for COVID negative 07/16 and 07/21. He was initially on azithromycin and ceftriaxone and this was changed to cefepime 07/18/20. He has been on Vanco since admission 07/16. BCx negative. WBC elevated but currently on steroids. Pulm following and appreciate their input. Continue neb treatments. (2) Acute exacerbation of chronic obstructive pulmonary disease: Code(s): J44.1 - Chronic obstructive pulmonary disease with (acute) exacerbation Status: Acute Assessment and Plan: As above. Symbicort started (3) Acute and chronic respiratory failure: Code(s): J96.20 - Acute and chronic respiratory failure, unspecified whether with hypoxia or hypercapnia Status: Acute Assessment and Plan: Due to above. ABG 7.49/45/58 on BiPAP. Weaned off BiPAP to HFNC again today. MBS 07/20 showing patient can do well with mince and moist but had difficulty with pills. Pills to be crushed. Sodium better. Echo showing EF 65-70% with diastolic dysfuntion and moderate MR. Consider shunt but unlikely given the lung findings. Consider intermittent aspiration. BNP 1270 on admission so consider CHF as well. Na better. Continue BiPAP at night. Continue current IV abx. Continue ST. Is MR more severe then Echo lists? (4) Fall: Code(s): W19.XXXA - Unspecified fall, initial encounter Status: Acute Assessment and Plan: Patient was found on the ground and states he hit his back and head on 07/19. Neuro exam was completely normal at the time. CT of the brain and a CT spine were negative for acute pathology. No rib fracture by x-ray. More confused at night but normally AOx4 in the morning. Continue therapy and place bed alarm on the patient. (5) Hyponatremia: Code(s): E87.1 - Hypo-osmolality and hyponatremia Status: Acute Assessment and Plan: Na dropped to 121 on 07/18 from 134 on admission. He has a hx of hyponatremia ranging from 125-135. Urine Na <5. Not on home diuretics but is on Cymbalta. He has been receiving Lasix intermittently. Unclear if he is fluid overloaded or dry. Pt not on IV fluids but drinks a lot of free fluids so fluid restriction started. He does have PNA currently being treated so consider SIADH/lung component but felt less likely. Legionella negative. Normal saline 1L given and Na has improved to 126 today. He is eating/drinking normally. Could still be dry. Will hold on repeating Lasix and follow Na. 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 The patient's blood glucose was reviewed on 07/22 Glucose was low at times and Meal time insulin stopped and Lantus dose decreased. Glucose improved so lantus resumed. Glucose higher now so will advance lantus. Continue AccuCheks covering with sliding scale. Hypoglycemia protocol available as needed. (7) Toe ulcer due to DM: Code(s): E11.621 - Type 2 diabetes mellitus with foot ulcer; L97.509 - Non-pressure chronic ulcer of other part of unspecified foot with uns
--- NOTE | 2020-07-22 12:05 | PCPTNOTE ---
PT on hold due to pt on Bipap. Will follow.
[2020-07-22 12:10] LABS: Sodium 128 mmol/L (137-145)
--- NOTE | 2020-07-22 12:21 | PC.NURSE ---
Daughter of this patient Leigh called in @1220 and update was given. All questions answered per Leigh. Leigh stated she would be here [facility] Will continue to monitor.
[2020-07-22 12:27] LABS: Glucose Point of Care 319 mg/dl (65-105)
--- NOTE | 2020-07-22 12:38 | PCOTNOTE ---
Per RN, hold this date due to patient on bipap. Will attempt OT Re-evaluation tomorrow.
--- NOTE | 2020-07-22 12:52 | PCSTNOTE ---
Patient was seen for breakfast meal and exhibited no difficulty with mastication or swallowing. He stated he did not want to eat the sausage and gravy because it was meat and he had no dentition, then he ate it with mildly excessive mastication. He stated he took three small pills and had no difficulty swallowing but did state if medication was any larger, he would have to break it in half or fourths, etc. Patient was offered lingual exercises for bolus manipulation and strength and he refused, stating he did not feel that he needed them at this time. Patient is being discharged from direct Speech Therapy due to able to handle a Soft and Bite-Sized diet, able to take small pills without complaint, and refusing to participate in direct exercises. Dr. Lorenzana was notified and in agreement with recommendations.
[2020-07-22] MEDS: SALINE 0.65% NAS SOLN 44 ML BTL 1 SPRAY NASAL (15:34)
[2020-07-22 16:41] LABS: Glucose Point of Care 319 mg/dl (65-105)
[2020-07-22 17:39] LABS: Sodium 128 mmol/L (137-145)
[2020-07-22] MEDS: IMIPRAMINE HCL 25 MG TABLET 50 MG PO (20:38)
[2020-07-22] MEDS: QUEtiapine FUMARATE 12.5 MG TABLET PO (20:39)
[2020-07-22] MEDS: SENNOSIDES 8.6 MG TABLET PO (20:41)
[2020-07-22] MEDS: INSULIN GLARGINE (*BKC) 100 UNITS/ML 26 UNITS SUB-Q (20:41)
[2020-07-22] MEDS: HALOPERIDOL LACTATE 5 MG/ML VIAL 10 MG IV PUSH (21:00)
[2020-07-22 21:19] LABS: Glucose Point of Care 252 mg/dl (65-105)
[2020-07-22 21:35] LABS: Vancomycin Trough 10.3 ug/mL (10.0-20.0)
[2020-07-22 22:55] LABS: Glucose Point of Care 244 mg/dl (65-105)
[2020-07-22 23:18] LABS: Alveolar/Arterial O2 Gradient 485.9 mmHg; Base Excess ABG 10.6 mEq/l (+/-2.0); Device NON-INVASIVE VENT; Fractional Inspired Oxygen 85 %; HCO3 ABG 35.7 mEq/l (22.0-26.0); Modified Allen's Test Pass; Oxygen Content ABG 14.4 %vol (16.0-22.0); Oxygen Saturation ABG 94.2 % (95.0-100.0); Oxyhemoglobin 92.5 % THb (90.0-100.0); PCO2 ABG 50.7 mmHg (35.0-45.0); PO2 ABG 67.6 mmHg (80.0-100.0); Site Drawn LEFT RADIAL; pH ABG 7.466 (7.350-7.450)
[2020-07-22 23:19] LABS: Non-Invasive Expiratory Pressure 8 CMH2O; Non-Invasive Inspiratory Pressure 16 CMH2O; Non-Invasive Vent Rate 4 /MIN
[2020-07-22 23:29] LABS: Sodium 129 mmol/L (137-145)
[2020-07-23] VITALS (24 sets, daily range): BP systolic 143–187; BP diastolic 59–78; PULSE 26–78; RESP 14–24; TEMP 36.2–36.6; O2SAT 86–100; BMI 32.3
--- NOTE | 2020-07-23 00:24 | PM.EVENT ---
Event Note Event Note Event Note: 07/22/2020 at 11:00 p.m. Nursing staff had called earlier in the evening as the patient was agitated pulling off BiPAP and pulling at lines and Rachel. The patient had gotten Zyprexa night before with mild improvement in symptoms. The patient's chart was reviewed and his EKG was reviewed. Decision was made to give the patient a dose of IM Haldol 10 mg x 1. Shortly after Haldol administration the patient developed bradycardia. He has had periods of bradycardia with heart rates in the upper 30s and lower 40s while sleeping previously. He had received his usual Coreg around 8:30 p.m.. His heart rate dropped down to the upper 20s. His blood pressure remained stable. When the nurse went to evaluate the patient he was diaphoretic and less responsive. He would pull away to painful stimuli but with not open his eyes. A stat ABG was ordered and was stable. Patient's oxygen saturations were stable on BiPAP satting 90-92% on 85% FiO2. I went down to evaluate the patient he was noted to be diaphoretic. The patient would open his eyes to verbal stimuli but fell asleep immediately. He was not following commands. He was diaphoretic and an Accu-Chek was obtained. His glucose was 228. The patient was actually resting soundly. The patient had not slept much in the last 3 days. I suspect the patient is finally resting after hold all administration. The patient's heart rate at the time of my evaluation was in the mid 50s. Will continue to monitor. 30 minutes spent in critical care activities. This case had a high probability of a clinically significant, sudden, or life threatening deterioration of this patient's condition which required my full and direct attention, intervention and personal management.
[2020-07-23] MEDS: TOBRAMYCIN 0.3% OPHTH SOLN 5 ML 2 DROP EACH EYE ×6 (00:25→22:45)
[2020-07-23 00:34] LABS: Glucose Point of Care 228 mg/dl (65-105)
[2020-07-23] MEDS: IPRATROPIUM BR 0.02% INH SOLN 0.5 MG/2.5 ML VIAL INHALATION ×4 (01:35→21:49)
[2020-07-23] MEDS: ALBUTEROL SULFATE NEB 2.5 MG/0.5 ML INH 5 MG INHALATION ×4 (04:28→21:49)
[2020-07-23 05:22] LABS: Basophils Percent Auto 0.1 % (0.2-1.2); Hematocrit 30.2 % (42.0-52.0); Hemoglobin 9.7 g/dL (14.0-18.0); Immature Granulocyte Percent A 0.5 % (0-0.5); Lymphocytes Percent Auto 3.6 % (18.3-44.2); Mean Corpuscular HGB Conc 32.1 g/dl (32-36); Mean Corpuscular Volume 77.8 fl (80-100); Mean Platelet Volume 9.6 fl (7.4-10.4); Monocytes Absolute Auto 1.3 K/mm3 (0.1-0.6); Monocytes Percent Auto 6.8 % (2.6-8.5); Neutrophils Absolute Auto 17.4 K/mm3 (1.3-6.7); Platelet Count Result 324 k/mm3 (150-375); Red Blood Count 3.88 M/mm3 (4.6-6.20); Red Cell Distribution Width 14.9 % (11.5-14.5); White Blood Count 19.5 K/mm3 (4.5-10.0)
[2020-07-23 05:33] LABS: Albumin Level 2.9 g/dL (3.5-5.1); Anion Gap 3 mmol/L (8-16); Blood Urea Nitrogen 22 mg/dL (9-20); Calcium 8.4 mg/dL (8.4-10.2); Carbon Dioxide 36 mmol/L (22-30); Chloride 91 mmol/L (98-107); Estimated CRCL calculation 106 ml/min; Estimated Glomerular Filt Rate > 60; Glucose 276 mg/dL (75-110); Magnesium 1.9 mg/dL (1.6-2.3); Phosphorus 2.4 mg/dL (2.5-4.5); Potassium 4.1 mmol/L (3.4-5.0); Sodium 130 mmol/L (137-145)
[2020-07-23] MEDS: methylPREDNISolone SOD SUCC 125 MG VIAL 60 MG IV PUSH ×2 (05:53→17:57)
--- NOTE | 2020-07-23 05:53 | PC.NURSE ---
MAR down on mobile workstations following [employer] update. Manually entered medications given from desktop.
[2020-07-23 09:35] LABS: Glucose Point of Care 282 mg/dl (65-105)
[2020-07-23] MEDS: INSULIN ASPART (*BKC) 100 UNITS/ML SUB-Q ×3 (10:12→17:56)
[2020-07-23] MEDS: APIXABAN 5 MG TABLET PO ×2 (10:13→22:42)
[2020-07-23] MEDS: LORATADINE 10 MG TABLET PO (10:13)
[2020-07-23] MEDS: amLODIPine BESYLATE 5 MG TABLET 10 MG PO (10:13)
[2020-07-23] MEDS: carvediloL 25 MG TABLET BY MOUTH ×2 (10:13→22:42)
[2020-07-23] MEDS: SILVERGEL (ELTA) 45 ML 1 APPLIC TOPICAL (10:14)
[2020-07-23] MEDS: MUPIROCIN 2% OINT 22 GM TUBE 1 APPLIC TOPICAL ×2 (10:14→17:57)
--- NOTE | 2020-07-23 13:08 | PM.IMPN ---
Progress Note: A&P Assessment and Plan (1) Community acquired pneumonia: Qualifiers: Laterality: unspecified laterality Qualified Code(s): J18.9 - Pneumonia, unspecified organism Code(s): J18.9 - Pneumonia, unspecified organism Status: Acute Assessment and Plan: Patient present with SOB. WBC 13K but no fevers. CRP and procalcitonin levels normal. CT chest showing patchy groundglass opacities in the bilateral upper lobes and small bilateral pleural effusions. CXR 07/21 showing progression of patchy bilateral PNA. PCR for COVID negative 07/16 and 07/21. He was initially on azithromycin and ceftriaxone and this was changed to cefepime 07/18/20. He has been on Vanco since admission 07/16. BCx negative. WBC elevated but currently on steroids. Pulm following. Continue neb treatments. (2) Acute exacerbation of chronic obstructive pulmonary disease: Code(s): J44.1 - Chronic obstructive pulmonary disease with (acute) exacerbation Status: Acute Assessment and Plan: As above. Symbicort started (3) Acute and chronic respiratory failure: Code(s): J96.20 - Acute and chronic respiratory failure, unspecified whether with hypoxia or hypercapnia Status: Acute Assessment and Plan: Due to above. ABG 7.46/50.7/67.6 on BiPAP last night. Weaned off BiPAP to HFNC again today. [place] to have PNA but minimal cough and procalcitonin normal. MBS 07/20 showing patient can do well with mince and moist but had difficulty with pills. Pills to be crushed. Echo showing EF 65-70% with diastolic dysfunction and moderate MR. Consider shunt but unlikely given the lung findings. Consider intermittent aspiration. BNP 1270 on admission so consider CHF as well. Na better. Continue BiPAP at night. Continue current IV abx. Continue ST. Trial of IV Lasix. Pulmonary was consulted (4) Fall: Code(s): W19.XXXA - Unspecified fall, initial encounter Status: Acute Assessment and Plan: Patient was found on the ground and states he hit his back and head on 07/19. Neuro exam was completely normal at the time. CT of the brain and a CT spine were negative for acute pathology. No rib fracture by x-ray. More confused at night but normally AOx4 in the morning. Continue therapy and place bed alarm on the patient. (5) Hyponatremia: Code(s): E87.1 - Hypo-osmolality and hyponatremia Status: Acute Assessment and Plan: Na dropped to 121 on 07/18 from 134 on admission. He has a hx of hyponatremia ranging from 125-135. Urine Na <5. Not on home diuretics but is on Cymbalta. He has been receiving Lasix intermittently. Unclear if he is fluid overloaded or dry. Pt not on IV fluids but drinks a lot of free fluids so fluid restriction started. He does have PNA currently being treated so consider SIADH/lung component but felt less likely. Legionella negative. Normal saline x 1L given and Na has improved to 130 today. He is eating/drinking normally. 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 The patient's blood glucose was reviewed on 07/23 Glucose was low at times and meal time insulin stopped and Lantus dose decreased. Glucose improved so lantus resumed. Glucose still elevated now so will advance lantus again. Continue AccuCheks covering with sliding scale. Hypoglycemia protocol available as needed. (7) Toe ulcer due to DM: Code(s): E11.621 - Type 2 diabetes mellitus with foot ulcer; L97.509 - Non-pressure chronic ulcer of other part of unspecified
--- NOTE | 2020-07-23 13:31 | PCNSR ---
On 07/23/20, the student,Jessica Camacho, provided care and completed [facility] documentation on this patient. I have reviewed the student's documentation and agree with the findings.
[2020-07-23 14:22] LABS: Glucose Point of Care 311 mg/dl (65-105)
[2020-07-23] MEDS: FUROSEMIDE INJ 40 MG/4 ML VIAL IV PUSH ×2 (15:08→22:43)
[2020-07-23] MEDS: POTASSIUM/PHOSPHORUS/SODIUM 1.5 GM PACKET 1 PACKET PO (15:09)
--- NOTE | 2020-07-23 15:21 | PCOTNOTE ---
OT re-assess attempted. Patient now on non-rebreather mask due to increased O2 needs. Unable to see at this time due to low O2 Saturations. Will attempt OT re-assessment when medically appropriate.
--- NOTE | 2020-07-23 15:38 | PCPTNOTE ---
PT on hold as pt on non rebreather mask due to increased O2 needs. Unable to see due to low O2 sats. Will follow
[2020-07-23] MEDS: VANCOMYCIN HCL 1,500 MG in SODIUM CHLORIDE 0.9% IV 500 ML 250 MG IVPB (17:03)
[2020-07-23 18:00] LABS: Glucose Point of Care 321 mg/dl (65-105)
[2020-07-23 21:27] LABS: Glucose Point of Care 340 mg/dl (65-105)
[2020-07-23] MEDS: IMIPRAMINE HCL 25 MG TABLET 50 MG PO (22:43)
[2020-07-23] MEDS: SENNOSIDES 8.6 MG TABLET PO (22:45)
[2020-07-23] MEDS: QUEtiapine FUMARATE 25 MG TABLET PO (22:45)
[2020-07-23] MEDS: INSULIN GLARGINE (*BKC) 100 UNITS/ML 32 UNITS SUB-Q (22:47)
[2020-07-24] VITALS (29 sets, daily range): BP systolic 144–175; BP diastolic 65–78; PULSE 54–88; RESP 13–22; TEMP 36.1–36.8; O2SAT 91–97
[2020-07-24] MEDS: TOBRAMYCIN 0.3% OPHTH SOLN 5 ML 2 DROP EACH EYE ×5 (00:56→21:25)
[2020-07-24] MEDS: IPRATROPIUM BR 0.02% INH SOLN 0.5 MG/2.5 ML VIAL INHALATION ×4 (01:55→20:31)
[2020-07-24] MEDS: ALBUTEROL SULFATE NEB 2.5 MG/0.5 ML INH 5 MG INHALATION ×4 (01:55→20:31)
[2020-07-24 05:26] LABS: Basophils Percent Auto 0.1 % (0.2-1.2); Hematocrit 33.4 % (42.0-52.0); Hemoglobin 10.4 g/dL (14.0-18.0); Immature Granulocyte Absolute 0.19 K/mm3 (0.00-0.031); Immature Granulocyte Percent A 1.1 % (0-0.5); Lymphocytes Absolute Auto 0.85 K/mm3 (0.9-3.2); Lymphocytes Percent Auto 4.8 % (18.3-44.2); Mean Corpuscular HGB Conc 31.1 g/dl (32-36); Mean Corpuscular Hemoglobin 24.8 pg (26-34); Mean Corpuscular Volume 79.5 fl (80-100); Mean Platelet Volume 9.8 fl (7.4-10.4); Monocytes Absolute Auto 1.3 K/mm3 (0.1-0.6); Monocytes Percent Auto 7.3 % (2.6-8.5); Neutrophils Absolute Auto 15.4 K/mm3 (1.3-6.7); Neutrophils Percent Auto 86.7 % (45.5-73.1); Platelet Count Result 354 k/mm3 (150-375); Red Cell Distribution Width 14.7 % (11.5-14.5); White Blood Count 17.8 K/mm3 (4.5-10.0)
[2020-07-24] MEDS: methylPREDNISolone SOD SUCC 125 MG VIAL 60 MG IV PUSH ×2 (05:48→16:28)
[2020-07-24 06:03] LABS: Blood Urea Nitrogen 22 mg/dL (9-20); Calcium 8.2 mg/dL (8.4-10.2); Carbon Dioxide > 40 mmol/L (22-30); Chloride 89 mmol/L (98-107); Estimated CRCL calculation 122 ml/min; Estimated Glomerular Filt Rate > 60; Glucose 221 mg/dL (75-110); Magnesium 1.7 mg/dL (1.6-2.3); NT Pro B Type Natriuretic Pept 5160 pg/mL (5-100); Phosphorus 2.4 mg/dL (2.5-4.5); Potassium 3.5 mmol/L (3.4-5.0); Sodium 133 mmol/L (137-145)
[2020-07-24 07:52] LABS: Glucose Point of Care 176 mg/dl (65-105)
[2020-07-24] MEDS: FUROSEMIDE INJ 40 MG/4 ML VIAL IV PUSH ×2 (09:52→21:25)
[2020-07-24] MEDS: LORATADINE 10 MG TABLET PO (09:52)
[2020-07-24] MEDS: amLODIPine BESYLATE 5 MG TABLET 10 MG PO (09:52)
[2020-07-24] MEDS: APIXABAN 5 MG TABLET PO ×2 (09:52→21:24)
[2020-07-24] MEDS: carvediloL 25 MG TABLET BY MOUTH (09:53)
[2020-07-24] MEDS: MUPIROCIN 2% OINT 22 GM TUBE 1 APPLIC TOPICAL ×2 (09:53→16:28)
[2020-07-24] MEDS: VANCOMYCIN HCL 1,500 MG in SODIUM CHLORIDE 0.9% IV 500 ML 250 MG IVPB (09:53)
[2020-07-24] MEDS: SILVERGEL (ELTA) 45 ML 1 APPLIC TOPICAL (09:53)
[2020-07-24 12:01] LABS: Glucose Point of Care 176 mg/dl (65-105)
--- NOTE | 2020-07-24 16:19 | PM.IMPN ---
Progress Note: A&P Assessment and Plan (1) Community acquired pneumonia: Qualifiers: Laterality: unspecified laterality Qualified Code(s): J18.9 - Pneumonia, unspecified organism Code(s): J18.9 - Pneumonia, unspecified organism Status: Acute Assessment and Plan: Interval history : [place] [address] ? secondary to steroids Pulm following. Continue neb treatments. On iv vancomycin and iv cefepime (2) Acute exacerbation of chronic obstructive pulmonary disease: Code(s): J44.1 - Chronic obstructive pulmonary disease with (acute) exacerbation Status: Acute Assessment and Plan: SEe above (3) Acute and chronic respiratory failure: Code(s): J96.20 - Acute and chronic respiratory failure, unspecified whether with hypoxia or hypercapnia Status: Acute Assessment and Plan: Interval history : Continue BiPAP at night. Continue current IV abx. Pulmonary was consulted (4) Fall: Code(s): W19.XXXA - Unspecified fall, initial encounter Status: Acute Assessment and Plan: Patient was found on the ground and states he hit his back and head on 07/19. Neuro exam was completely normal at the time. CT of the brain and a CT spine were negative for acute pathology. continue PT/ OT (5) Hyponatremia: Code(s): E87.1 - Hypo-osmolality and hyponatremia Status: Acute Assessment and Plan: Na dropped to 121 on 07/18 from 134 on admission. presently 133 (6) Diabetes mellitus: Qualifiers: Diabetes mellitus complication status: with hyperglycemia Diabetes mellitus usp insulin use: unspecified terminal supervisor insulin use status Diabetes mellitus type: type 2 Qualified Code(s): E11.65 - Type 2 diabetes mellitus with hyperglycemia Code(s): E11.9 - Type 2 diabetes mellitus without complications Status: Chronic Assessment and Plan: A1c 9.3 last month. (7) Toe ulcer due to DM: Code(s): E11.621 - Type 2 diabetes mellitus with foot ulcer; L97.509 - Non-pressure chronic ulcer of other part of unspecified foot with unspecified severity Status: Acute Assessment and Plan: Patient has a wound on his left great toe which should be closely monitored due to his diabetic state. (8) Oral thrush: Code(s): B37.0 - Candidal stomatitis Status: Acute Assessment and Plan: He was given Diflucan 400 mg IV 1 time. HIV negative. (9) Atrial fibrillation: Qualifiers: Atrial fibrillation type: unspecified Qualified Code(s): I48.91 - Unspecified atrial fibrillation Code(s): I48.91 - Unspecified atrial fibrillation Status: Acute Assessment and Plan: AFib/AFlutter. Currently rate controlled with Coreg. On usp anticoagulated with Eliquis. Continue Coreg and Eliquis, hold coreg pt is bradycardic today. (10) Diabetic polyneuropathy associated with type 2 diabetes mellitus: Code(s): E11.42 - Type 2 diabetes mellitus with diabetic polyneuropathy Status: Acute Assessment and Plan: Stable. Continue gabapentin. (11) Mouth ulcer: Code(s): K12.1 - Other forms of stomatitis Status: Acute Assessment and Plan: Being followed by Dr Rich. (12) Anemia: Code(s): D64.9 - Anemia, unspecified Status: Acute Assessment and Plan: Hgb mostly in the 10-11 range but dropped to 9.7 today. hb is 10 (13) DVT prophylaxis: Code(s): Z29.9 - Encounter for prophylactic measures, unspecified Status: Acute Assessment and Plan: Eliquis Subjective Date/time seen: 07/24/20 16:19 Interval history: 70yo male with DM, COPD, chronic resp failure on 2 L at home, and atrial fibrillation who is here for PNA. Pt is still needing high flow at 60%. Pt had some bradycardia again today. ? haldol but pt was not on haldol last night.
[2020-07-24 16:30] LABS: Glucose Point of Care 303 mg/dl (65-105)
--- NOTE | 2020-07-24 17:33 | PM.PNPUL ---
Progress Note: A&P Assessment and Plan (1) Acute and chronic respiratory failure: Code(s): J96.20 - Acute and chronic respiratory failure, unspecified whether with hypoxia or hypercapnia Status: Acute Assessment and Plan: Has been on O2 long standing, at home 2 L a minute at rest 4 L with exertion. ABG July 19 = pH 7.43;pCO2 41.8; pO2 52.5, HCO3 27.4, saturation 88.2% on 5 L a minute. This was before he was placed on High flowcannula. (2) Community acquired pneumonia: Qualifiers: Laterality: unspecified laterality Qualified Code(s): J18.9 - Pneumonia, unspecified organism Code(s): J18.9 - Pneumonia, unspecified organism Status: Acute Assessment and Plan: He has a RUL infiltrate, was on 4 rounds of antibiotics for sinus infections before admission to the hospital He has persistent elevated WBC 17.8 K, is on same amounts of O2 compared to usual amount at home, 2-4 L Sputum is unremarkable. He has bilateral upper lobe infiltrates, same high O2 requirements. No sputum results. Sputum remains discolored, grayish and thick. Continues to receive cefepime and vancomycin. Ur antigen for S pneumococcus is negative. (3) Chronic obstructive pulmonary disease, unspecified: Code(s): J44.9 - Chronic obstructive pulmonary disease, unspecified Status: Acute Assessment and Plan: Mild per PFTs in December; clinically moderate to severe. Continue bronchodilator therapy. Subjective Date/time seen: 07/24/20 17:33 Patient seen in f/u for pneumonia, acute hypoxemic respiratory failure. He has COPD, chronic respiratory failure on O2 at home 2 L/min at rest, 4 L/min with exertion, admitted July 15 with pneumonia with worsening hypoxemia. He remains on high-flow nasal cannula in IMU 232. He is alert, on High flow 81% and 60 L/min. His breathing is not labored. He is responsive. He is coughing less often and sputum does not look as bad. Review of Systems Review of Systems: All systems reviewed & are unremarkable except as noted in HPI and below Exam Const: General: comfortable and no acute distress ( Wearing high-flow 81% and 60 L a minute) HENMT: Head: normal to inspection General nose exam: Normal external nose present Face and sinus: normal facial exam Mouth: Yes dry mucous membranes Eyes: General: appearance normal, both eyes and all related structures Chest: Other: Normal expansion Resp: Auscultation: crackles ( few crackles in bases) and diminished lung sounds Cardio: Rate: regular rate Rhythm: abnormal rhythm irregularly irregular GI: Auscultation: normal bowel sounds Skin: General skin exam: normal color Extrem: General: pedal edema (trace; no clubbing or cyanosis) Psych: Appearance: grossly normal Mental Status: mental status grossly normal Objective Data Vital Signs Vital Signs: Vital Signs - 24 hr 07/23/20 18:00 07/23/20 20:00 07/23/20 21:53 Temperature 36.4 C L Pulse Rate 76 78 72 Respiratory Rate 22 H 20 Blood Pressure 155/59 H Pulse Oximetry 91 07/23/20 21:54 07/23/20 22:00 07/23/20 22:03 Temperature Pulse Rate 75 77 Respiratory Rate 20 Blood Pressure Pulse Oximetry 91 07/23/20 22:42 07/23/20 23:49 07/24/20 00:00 Temperature 36.2 C L Pulse Rate 77 75 64 Respiratory Rate 22 H Blood Pressure 163/65 H Pulse Oximetry 91 97 07/24/20 00:20 07/24/20 01:57 07/24/20 01:59 Temperature Pulse Rate 68 57 L 57 L Respiratory Rate 18 13 16 Blood Pressure Pulse Oximetry 94 96 07/24/20 02:00 07/24/20 02:10 07/24/20 04:00 Temperature 36.6 C Pulse Rate 55 L 60 85 Respiratory Rate 16 18 Blood Pressure 170/78 H Pulse Oximetry 95 07/24/20 06:00 07/24/20 07:56 07/24/20 08:00 Temperature 36.8 C
[2020-07-24] MEDS: INSULIN ASPART (*BKC) 100 UNITS/ML SUB-Q (18:57)
[2020-07-24 19:01] LABS: Glucose Point of Care 262 mg/dl (65-105)
[2020-07-24 20:01] LABS: Glucose Point of Care 311 mg/dl (65-105)
[2020-07-24] MEDS: SENNOSIDES 8.6 MG TABLET PO (21:24)
[2020-07-24] MEDS: IMIPRAMINE HCL 25 MG TABLET 50 MG PO (21:24)
[2020-07-24] MEDS: QUEtiapine FUMARATE 25 MG TABLET PO (21:24)
[2020-07-24] MEDS: INSULIN GLARGINE (*BKC) 100 UNITS/ML 32 UNITS SUB-Q (21:26)
[2020-07-25] VITALS (26 sets, daily range): BP systolic 150–182; BP diastolic 55–77; PULSE 59–120; RESP 19–20; TEMP 36.3–36.6; O2SAT 90–95
[2020-07-25] MEDS: TOBRAMYCIN 0.3% OPHTH SOLN 5 ML 2 DROP EACH EYE ×6 (01:07→20:25)
[2020-07-25] MEDS: ALBUTEROL SULFATE NEB 2.5 MG/0.5 ML INH 5 MG INHALATION ×4 (02:28→20:19)
[2020-07-25] MEDS: IPRATROPIUM BR 0.02% INH SOLN 0.5 MG/2.5 ML VIAL INHALATION ×4 (02:28→20:19)
[2020-07-25 03:23] LABS: Hematocrit 34.8 % (42.0-52.0); Hemoglobin 11.1 g/dL (14.0-18.0); Mean Corpuscular HGB Conc 31.9 g/dl (32-36); Mean Corpuscular Hemoglobin 24.9 pg (26-34); Mean Corpuscular Volume 78.2 fl (80-100); Mean Platelet Volume 9.6 fl (7.4-10.4); Platelet Count Result 388 k/mm3 (150-375); Red Blood Count 4.45 M/mm3 (4.6-6.20); Red Cell Distribution Width 14.7 % (11.5-14.5); White Blood Count 17.1 K/mm3 (4.5-10.0)
[2020-07-25 03:39] LABS: Blood Urea Nitrogen 21 mg/dL (9-20); Calcium 8.4 mg/dL (8.4-10.2); Carbon Dioxide > 40 mmol/L (22-30); Chloride 86 mmol/L (98-107); Estimated CRCL calculation 106 ml/min; Estimated Glomerular Filt Rate > 60; Glucose 210 mg/dL (75-110); Potassium 3.5 mmol/L (3.4-5.0); Sodium 133 mmol/L (137-145)
[2020-07-25 03:49] LABS: Vancomycin Trough 9.9 ug/mL (10.0-20.0)
[2020-07-25] MEDS: VANCOMYCIN HCL 1,500 MG in SODIUM CHLORIDE 0.9% IV 500 ML 250 MG IVPB ×2 (04:38→16:05)
[2020-07-25] MEDS: methylPREDNISolone SOD SUCC 125 MG VIAL 60 MG IV PUSH ×2 (04:40→17:51)
--- NOTE | 2020-07-25 07:34 | PCOTNOTE ---
Per RN, patient is ok to continue occupational therapy, will attempt re-assess.
[2020-07-25 08:26] LABS: Glucose Point of Care 138 mg/dl (65-105)
[2020-07-25] MEDS: LORATADINE 10 MG TABLET PO (09:40)
[2020-07-25] MEDS: APIXABAN 5 MG TABLET PO ×2 (09:40→20:22)
[2020-07-25] MEDS: amLODIPine BESYLATE 5 MG TABLET 10 MG PO (09:40)
[2020-07-25] MEDS: carvediloL 25 MG TABLET BY MOUTH ×2 (09:40→20:23)
[2020-07-25] MEDS: FUROSEMIDE INJ 40 MG/4 ML VIAL IV PUSH ×2 (09:51→20:23)
[2020-07-25] MEDS: MUPIROCIN 2% OINT 22 GM TUBE 1 APPLIC TOPICAL ×2 (11:47→17:50)
[2020-07-25] MEDS: SILVERGEL (ELTA) 45 ML 1 APPLIC TOPICAL (11:48)
[2020-07-25] MEDS: INSULIN ASPART (*BKC) 100 UNITS/ML SUB-Q ×2 (11:59→17:49)
[2020-07-25 12:20] LABS: Glucose Point of Care 241 mg/dl (65-105)
--- NOTE | 2020-07-25 16:22 | PM.IMPN ---
Progress Note: A&P Assessment and Plan (1) Community acquired pneumonia: Qualifiers: Laterality: unspecified laterality Qualified Code(s): J18.9 - Pneumonia, unspecified organism Code(s): J18.9 - Pneumonia, unspecified organism Status: Acute Assessment and Plan: Interval history : [place] [address] ? secondary to steroids Pulm following. Continue neb treatments. On iv vancomycin and iv cefepime continue to watch wcc (2) Acute exacerbation of chronic obstructive pulmonary disease: Code(s): J44.1 - Chronic obstructive pulmonary disease with (acute) exacerbation Status: Acute Assessment and Plan: SEe above (3) Acute and chronic respiratory failure: Code(s): J96.20 - Acute and chronic respiratory failure, unspecified whether with hypoxia or hypercapnia Status: Acute Assessment and Plan: Interval history : Continue BiPAP prn and atnight Continue current IV abx. Pulmonary was consulted (4) Fall: Code(s): W19.XXXA - Unspecified fall, initial encounter Status: Acute Assessment and Plan: Patient was found on the ground and states he hit his back and head on 07/19. Neuro exam was completely normal at the time. CT of the brain and a CT spine were negative for acute pathology. continue PT/ OT (5) Hyponatremia: Code(s): E87.1 - Hypo-osmolality and hyponatremia Status: Acute Assessment and Plan: Na dropped to 121 on 07/18 from 134 on admission. presently 133 (6) Diabetes mellitus: Qualifiers: Diabetes mellitus type: type 2 Diabetes mellitus penitentiary insulin use: unspecified penitentiary insulin use status Diabetes mellitus complication status: with hyperglycemia Qualified Code(s): E11.65 - Type 2 diabetes mellitus with hyperglycemia Code(s): E11.9 - Type 2 diabetes mellitus without complications Status: Chronic Assessment and Plan: A1c 9.3 last month. (7) Toe ulcer due to DM: Code(s): E11.621 - Type 2 diabetes mellitus with foot ulcer; L97.509 - Non-pressure chronic ulcer of other part of unspecified foot with unspecified severity Status: Acute Assessment and Plan: Patient has a wound on his left great toe which should be closely monitored due to his diabetic state. (8) Oral thrush: Code(s): B37.0 - Candidal stomatitis Status: Acute Assessment and Plan: He was given Diflucan 400 mg IV 1 time. HIV negative. (9) Atrial fibrillation: Qualifiers: Atrial fibrillation type: unspecified Qualified Code(s): I48.91 - Unspecified atrial fibrillation Code(s): I48.91 - Unspecified atrial fibrillation Status: Acute Assessment and Plan: AFib/AFlutter. Currently rate controlled with Coreg. 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 Continue Coreg and Eliquis, hold coreg pt is bradycardic today. (10) Diabetic polyneuropathy associated with type 2 diabetes mellitus: Code(s): E11.42 - Type 2 diabetes mellitus with diabetic polyneuropathy Status: Acute Assessment and Plan: Stable. Continue gabapentin. (11) Mouth ulcer: Code(s): K12.1 - Other forms of stomatitis Status: Acute Assessment and Plan: Being followed by Dr Rich. (12) Anemia: Code(s): D64.9 - Anemia, unspecified Status: Acute Assessment and Plan: Hgb mostly in the 10-11 range but dropped to 9.7 today. hb is 11 (13) DVT prophylaxis: Code(s): Z29.9 - Encounter for prophylactic measures, unspecified Status: Acute Assessment and Plan: pt is on Eliquis Subjective Date/time seen: 07/25/20 16:22 Interval history: 70yo male with DM, COPD, chronic resp failure on 2 L at home, and atrial fibrillation who is here for PNA. Pt is still needing high flow at 60% and bipap prn, heart rate back up. Review of Sys
[2020-07-25 16:46] LABS: Glucose Point of Care 261 mg/dl (65-105)
[2020-07-25] MEDS: IMIPRAMINE HCL 25 MG TABLET 50 MG PO (20:22)
[2020-07-25] MEDS: QUEtiapine FUMARATE 25 MG TABLET PO (20:24)
[2020-07-25] MEDS: SENNOSIDES 8.6 MG TABLET PO (20:27)
[2020-07-25] MEDS: INSULIN GLARGINE (*BKC) 100 UNITS/ML 32 UNITS SUB-Q (20:46)
[2020-07-25 20:47] LABS: Glucose Point of Care 243 mg/dl (65-105)
[2020-07-26] VITALS (31 sets, daily range): BP systolic 157–168; BP diastolic 71–80; PULSE 63–93; RESP 17–20; TEMP 35.9–36.6; O2SAT 90–97
[2020-07-26] MEDS: TOBRAMYCIN 0.3% OPHTH SOLN 5 ML 2 DROP EACH EYE ×2 (02:35→05:52)
[2020-07-26] MEDS: VANCOMYCIN HCL 1,500 MG in SODIUM CHLORIDE 0.9% IV 500 ML 250 MG IVPB ×2 (04:05→17:52)
[2020-07-26 04:51] LABS: Hematocrit 35.3 % (42.0-52.0); Hemoglobin 11.3 g/dL (14.0-18.0); Mean Corpuscular Hemoglobin 25.1 pg (26-34); Mean Corpuscular Volume 78.3 fl (80-100); Mean Platelet Volume 9.3 fl (7.4-10.4); Platelet Count Result 350 k/mm3 (150-375); Red Blood Count 4.51 M/mm3 (4.6-6.20); Red Cell Distribution Width 14.6 % (11.5-14.5); White Blood Count 17.6 K/mm3 (4.5-10.0)
[2020-07-26 05:03] LABS: Blood Urea Nitrogen 23 mg/dL (9-20); Calcium 8.2 mg/dL (8.4-10.2); Carbon Dioxide > 40 mmol/L (22-30); Chloride 86 mmol/L (98-107); Estimated CRCL calculation 106 ml/min; Estimated Glomerular Filt Rate > 60; Glucose 171 mg/dL (75-110); Potassium 3.5 mmol/L (3.4-5.0); Sodium 132 mmol/L (137-145)
[2020-07-26] MEDS: methylPREDNISolone SOD SUCC 125 MG VIAL 60 MG IV PUSH ×2 (05:52→17:52)
[2020-07-26 07:48] LABS: Glucose Point of Care 180 mg/dl (65-105)
[2020-07-26] MEDS: ONDANSETRON INJ 4 MG/2 ML VIAL IV PUSH (07:50)
[2020-07-26] MEDS: FUROSEMIDE INJ 40 MG/4 ML VIAL IV PUSH (07:56)
[2020-07-26] MEDS: LORATADINE 10 MG TABLET PO (08:03)
[2020-07-26] MEDS: amLODIPine BESYLATE 5 MG TABLET 10 MG PO (08:03)
[2020-07-26] MEDS: carvediloL 25 MG TABLET BY MOUTH ×2 (08:03→22:39)
[2020-07-26] MEDS: APIXABAN 5 MG TABLET PO ×2 (08:03→22:38)
[2020-07-26] MEDS: SILVERGEL (ELTA) 45 ML 1 APPLIC TOPICAL (08:10)
[2020-07-26] MEDS: MUPIROCIN 2% OINT 22 GM TUBE 1 APPLIC TOPICAL ×2 (08:10→18:48)
[2020-07-26] MEDS: IPRATROPIUM BR 0.02% INH SOLN 0.5 MG/2.5 ML VIAL INHALATION ×3 (09:19→20:13)
[2020-07-26] MEDS: ALBUTEROL SULFATE NEB 2.5 MG/0.5 ML INH 5 MG INHALATION (09:19)
--- NOTE | 2020-07-26 10:07 | PCPTNOTE ---
Attempted to see patient at 0924 for PT, however patient refused therapy at this time. Patient states that he isn't feeling well this morning. Patient receiving breathing treatment at this time. Patient requested for therapy to come back later. Diana Ely, [employer]
--- NOTE | 2020-07-26 10:12 | PM.PNPUL ---
Progress Note: A&P Assessment and Plan (1) Acute and chronic respiratory failure: Code(s): J96.20 - Acute and chronic respiratory failure, unspecified whether with hypoxia or hypercapnia Status: Acute Assessment and Plan: Has been on O2 long standing, at home 2 L a minute at rest 4 L with exertion. 07/26 Remains on high flow NC with 50L and 85% FIO2 with sats 90%. Minimal clinical improvement in his symptoms. Patient admitted 07/16/20 with 6 month history of worsening nose bleeds, mouth ulcers and wrosening vision. Saw ENT on 05/24/20 who gave prednisone and referred to [facility] (scheduled in 09/25 per patient). Now with worsening pulmonary infiltrates, hypoxemic respiratory failure despite broad spectrum antibiotics(vanco, ceftriaxone/cefep[howard, azithro), SARS negative, diuresis (cumulative minus 7.6 liters since admission) and high dose solumedrol (40 Q 6 from 07/20 to 07/25 and 40 Q 12 now. He denies any hemoptysis. I will repeat CT scan today. Recommend transfer to [facility] for additional rhuematology opinion, possible bronchoscopy with biopsies and or open lung biopsy to assess hypoxic respiratory failure with worsening infiltrates despite antibiotics, diuresis and high dsoe steroids. I spoke with Dr. Lorenzana who will contact [facility]. (2) Community acquired pneumonia: Qualifiers: Laterality: unspecified laterality Qualified Code(s): J18.9 - Pneumonia, unspecified organism Code(s): J18.9 - Pneumonia, unspecified organism Status: Acute Assessment and Plan: He has a RUL infiltrate, was on 4 rounds of antibiotics for sinus infections before admission to the hospital He has persistent elevated WBC 17.8 K, is on same amounts of O2 compared to usual amount at home, 2-4 L Sputum is unremarkable. He has bilateral upper lobe infiltrates, same high O2 requirements. No sputum results. Sputum remains discolored, grayish and thick. Continues to receive cefepime and vancomycin. Ur antigen for S pneumococcus is negative. SARS negative. I think bacterial pneumonia is less likley in this patient (see above). (3) Chronic obstructive pulmonary disease, unspecified: Code(s): J44.9 - Chronic obstructive pulmonary disease, unspecified Status: Acute Assessment and Plan: Mild per PFTs in December; clinically moderate to severe. Continue bronchodilator therapy.Mild centrilobular upper lobe emphysema on CT scan 07/19/20. Continue albuterol and ipratroprium nebs Q 6 for now. On soluedrol 40 Q 12 for now. Subjective Date/time seen: 07/26/20 10:12 Interval history: 07/26 Remains on high flow NC with 50L and 85% FIO2 with sats 90%. Minimal clinical improvement in his symptoms. Patient admitted 07/16/20 with 6 month history of worsening nose bleeds, mouth ulcers and wrosening vision. Saw ENT on 05/24/20 who gave prednisone and referred to [facility] rheumatology (scheduled in 09/25 per patient). Nopw with worsening pulmonary infiltrates, hypoxemic respiratory failure despite broad spectrum antibiotics(vanco, ceftriaxone/cefep[howard, azithro), SARS negative, diuresis (cumulative minus 7.6 liters since admission) and high dose solumedrol (40 Q 6 from 07/20 to 07/25 and 40 Q 12 now. He denies any hemoptyisis. I will repeat CT scan today. 07/24/20 17:33 Patient seen in f/u for pneumonia, acute hypoxemic respiratory failure. He has COPD, chronic respiratory failure on O2 at home 2 L/min at rest, 4 L/min with exertion, admitted July 15 with pneumonia with worsening hypoxemia. He remains on high-flow nasal cannula in IMU 232. He is alert, on High flow 81% and 60 L/min. His breathing is not labored. He is responsive. He is coughing less often and sputum does not look as bad. Review of Systems Review of Systems: All syste
--- NOTE | 2020-07-26 11:10 | PCDIET ---
Nutrition Follow-Up Complete: Nutrition Diagnosis: Obesity related to undesirable food choices as evidenced by a BMI of 32.3. Nutrition Goal: Have patient meet estimated nutrition needs. Goal in progress. Patient reports mouth is feeling better, though breathing is not - reports tolerating yogurt, eggs, and sausage at breakfast. Stated he was trying to focus on the protein . Encouragement provided. Recommend Glucerna Shake (220kcal, 10g protein) 1x daily to which patient is agreeable. Soft and bite size, heart healthy diet with 1000mL fluid restriction continues. Patient aware shake will count toward fluid allowance. Last recorded weight is 108 kg. Recommend obtaining new weight. Bowel Motility: Last BM documented on 07/21/20. Patient on scheduled Senna and Miralax prn. Labs Reviewed: WBC (17.6), Hgb (11.3), Hct (35.3), Glu (180), BUN (23), Na (132), Ca (8.2) Meds Noted: Albuterol, Norvasc, Coreg, Maxipime, Vitamin B12, Novolog, Lantus, Atrovent, Solu Medrol, Senna, Vancomycin Additional Notes: Documented abrasions to left back and left first toe; buttocks macerated. Will continue to monitor with same goal. Nutrition Monitoring and Evaluation: Will follow up in 3 days.
--- NOTE | 2020-07-26 13:29 | PM.IMPN ---
Progress Note: A&P Assessment and Plan (1) Community acquired pneumonia: Qualifiers: Laterality: unspecified laterality Qualified Code(s): J18.9 - Pneumonia, unspecified organism Code(s): J18.9 - Pneumonia, unspecified organism Status: Acute Assessment and Plan: Patient presents with SOB and WBC 13K but no fevers. CRP and procalcitonin levels normal. CT chest on admisison showing patchy ground glass opacities in the bilateral upper lobes and small bilateral pleural effusions. PCR for COVID negative 07/16 and 07/21. He was initially on azithromycin and ceftriaxone and this was changed to cefepime 07/18/20. He has been on Vanco since admission 07/16. BCx negative. WBC elevated but currently on Solumedrol 60mg IV Q12h. Pulm following. CT Chest today reviewed showing significant progression of patchy bilateral airspace disease and moderate (R>L) pleural effusions. Since no significant improvement, pulmonary concerned that this is more likely connective tissue disease and recommended transfer for bronch and possible biopsy. Spoke with [facility] but no beds available. Continue current care. (2) Acute exacerbation of chronic obstructive pulmonary disease: Code(s): J44.1 - Chronic obstructive pulmonary disease with (acute) exacerbation Status: Acute Assessment and Plan: As above. Symbicort started (3) Acute and chronic respiratory failure: Code(s): J96.20 - Acute and chronic respiratory failure, unspecified whether with hypoxia or hypercapnia Status: Acute Assessment and Plan: Due to above. ABG 7.46/50.7/67.6 on BiPAP on 07/22. CXR reviewed without much change but imrpoved in that he was able to tolerate being off the BiPAP last night. [place] to have PNA but minimal cough and procalcitonin normal. MBS 07/20 showing patient can do well with mince and moist but had difficulty with pills. Pills to be crushed. Echo showing EF 65-70% with diastolic dysfunction and moderate MR. Consider shunt but unlikely given the lung findings. Consider intermittent aspiration. BNP 1270 on admission so consider CHF as well and treated with IV Lasix with good results but no change in CXR findings. Na better. Continue BiPAP at night as patient allows. Continue current IV abx. Continue ST. Pulmonary was consulted and appreciate their input. Wean O2 as toelrated. (4) Fall: Code(s): W19.XXXA - Unspecified fall, initial encounter Status: Acute Assessment and Plan: Patient was found on the ground and states he hit his back and head on 07/19. Neuro exam was completely normal at the time; no change with neuro exam. CT of the brain and a CT spine were negative for acute pathology. No rib fracture by x-ray. He has been having confusion at night but normally AOx4 in the morning. Continue PT/OT and place bed alarm on the patient. (5) Hyponatremia: Code(s): E87.1 - Hypo-osmolality and hyponatremia Status: Acute Assessment and Plan: Na dropped to 121 on 07/18 from 134 on admission. He has a hx of hyponatremia ranging from 125-135. Urine Na <5. Not on home diuretics but is on Cymbalta. Legionella negative. Normal saline x 1L given and Na has improved to 130 today. He was ultimately started on Lasix IV with excellent diuresis and Na level remained stable. Lasix to stop today. Follow. (6) Diabetes mellitus: Qualifiers: Diabetes mellitus complication status: with hyperglycemia Diabetes mellitus prison insulin use: unspecified prison insulin use status Diabetes mellitus type: type 2 Qualified Code(s): E11.65 - Type 2 diabetes mellitus with hyperglycemia Code(s): E11.9 - Type 2 diabetes mellitus without complications Status: Chronic Assessment and Plan: A1c 9.3 last month. The patient's blood glucose was reviewed on 07/26 Glucose was low at times and meal time insulin stopped and Lantus dose decreased.
[2020-07-26 14:43] LABS: Glucose Point of Care 234 mg/dl (65-105)
[2020-07-26] MEDS: ALBUTEROL SULFATE NEB 2.5 MG/0.5 ML INH INHALATION ×2 (14:58→20:13)
--- NOTE | 2020-07-26 15:33 | PCPTNOTE ---
Attempted to see patient for second time in PM for PT treatment at 15:29, however patient continues to refuse. Patient states that he just doesn't feel good today. Will attempt to see patient again per POC. Diana Ely, SENIOR DATA ANALYST
[2020-07-26 15:51] LABS: Erythrocyte Sedimentation Rate 28 mm/hr (0-20)
[2020-07-26 16:23] LABS: Vancomycin Trough 13.5 ug/mL (10.0-20.0)
[2020-07-26 17:54] LABS: Glucose Point of Care 246 mg/dl (65-105)
[2020-07-26] MEDS: INSULIN ASPART (*BKC) 100 UNITS/ML SUB-Q (18:48)
[2020-07-26 19:13] LABS: Add Urine Microscopic? YES; Appearance Urine Clear (Clear); Bilirubin Urine Negative (Negative); Blood Urine 1+ (Negative); Color Urine Yellow (Yellow); Glucose Urine UA 3+ mg/dL (Negative); Ketones Urine Negative (Negative); Leukocyte Esterase Ur Negative LEU/UL (Negative); Mucus Urine Rare /lpf; Nitrate Urine Negative (Negative); Protein Urine 2+ mg/dL (Negative); Specific Grav Ur 1.017 (1.001-1.035); Squamous Epithelial Cell Urine Rare /hpf (Few); WBC Urine 0-3 /hpf
[2020-07-26 20:51] LABS: Glucose Point of Care 307 mg/dl (65-105)
[2020-07-26] MEDS: IMIPRAMINE HCL 25 MG TABLET 50 MG PO (22:38)
[2020-07-26] MEDS: QUEtiapine FUMARATE 25 MG TABLET PO (22:38)
[2020-07-26] MEDS: SENNOSIDES 8.6 MG TABLET PO (22:38)
[2020-07-26] MEDS: INSULIN GLARGINE (*BKC) 100 UNITS/ML 32 UNITS SUB-Q (22:39)
[2020-07-27] VITALS (32 sets, daily range): BP systolic 144–177; BP diastolic 64–81; PULSE 63–85; RESP 14–23; TEMP 35.7–36.7; O2SAT 90–99
[2020-07-27] MEDS: IPRATROPIUM BR 0.02% INH SOLN 0.5 MG/2.5 ML VIAL INHALATION ×4 (03:17→21:38)
[2020-07-27] MEDS: ALBUTEROL SULFATE NEB 2.5 MG/0.5 ML INH INHALATION ×4 (03:17→21:38)
[2020-07-27 04:55] LABS: Basophils Percent Auto 0.1 % (0.2-1.2); Eosinophils Percent Auto 0.1 % (0-4.4); Hemoglobin 11.2 g/dL (14.0-18.0); Immature Granulocyte Absolute 0.22 K/mm3 (0.00-0.031); Immature Granulocyte Percent A 1.2 % (0-0.5); Lymphocytes Absolute Auto 0.87 K/mm3 (0.9-3.2); Lymphocytes Percent Auto 4.8 % (18.3-44.2); Mean Corpuscular HGB Conc 31.1 g/dl (32-36); Mean Corpuscular Hemoglobin 24.9 pg (26-34); Mean Corpuscular Volume 80.2 fl (80-100); Mean Platelet Volume 9.8 fl (7.4-10.4); Monocytes Percent Auto 5.8 % (2.6-8.5); Neutrophils Absolute Auto 15.9 K/mm3 (1.3-6.7); Platelet Count Result 322 k/mm3 (150-375); Red Blood Count 4.49 M/mm3 (4.6-6.20); Red Cell Distribution Width 14.6 % (11.5-14.5)
[2020-07-27 05:14] LABS: Alanine Aminotransferase 50 U/L (4-50); Alkaline Phosphatase 106 U/L (38-126); Anion Gap 4 mmol/L (8-16); Aspartate Amino Transferase 34 U/L (17-59); Bilirubin,Total 1.3 mg/dL (0.2-1.3); Blood Urea Nitrogen 24 mg/dL (9-20); Calcium 8.2 mg/dL (8.4-10.2); Carbon Dioxide 39 mmol/L (22-30); Chloride 90 mmol/L (98-107); Estimated CRCL calculation 106 ml/min; Estimated Glomerular Filt Rate > 60; Glucose 267 mg/dL (75-110); Magnesium 1.7 mg/dL (1.6-2.3); Phosphorus 3.1 mg/dL (2.5-4.5); Potassium 3.7 mmol/L (3.4-5.0); Sodium 133 mmol/L (137-145)
[2020-07-27] MEDS: methylPREDNISolone SOD SUCC 125 MG VIAL 60 MG IV PUSH ×2 (05:28→17:24)
[2020-07-27] MEDS: VANCOMYCIN HCL 1,500 MG in SODIUM CHLORIDE 0.9% IV 500 ML 250 MG IVPB ×2 (05:29→17:22)
[2020-07-27 08:20] LABS: Glucose Point of Care 214 mg/dl (65-105)
[2020-07-27] MEDS: LORATADINE 10 MG TABLET PO (08:31)
[2020-07-27] MEDS: amLODIPine BESYLATE 5 MG TABLET 10 MG PO (08:31)
[2020-07-27] MEDS: CYANOCOBALAMIN 1,000 MCG TABLET 1000 MCG PO (08:31)
[2020-07-27] MEDS: APIXABAN 5 MG TABLET PO ×2 (08:31→20:08)
[2020-07-27] MEDS: carvediloL 25 MG TABLET BY MOUTH ×2 (08:31→20:08)
[2020-07-27] MEDS: SILVERGEL (ELTA) 45 ML 1 APPLIC TOPICAL (08:32)
[2020-07-27] MEDS: MUPIROCIN 2% OINT 22 GM TUBE 1 APPLIC TOPICAL ×2 (08:32→17:22)
[2020-07-27] MEDS: INSULIN ASPART (*BKC) 100 UNITS/ML SUB-Q ×3 (08:32→17:21)
--- NOTE | 2020-07-27 09:56 | PCPTNOTE ---
Attempted to see patient this AM at 9:45, however patient declined therapy due to eating breakfast. Will attempt to see patient later per POC. Diana Ely, DOCK LOADER
--- NOTE | 2020-07-27 11:13 | PM.PNPUL ---
Progress Note: A&P Assessment and Plan (1) Acute and chronic respiratory failure: Code(s): J96.20 - Acute and chronic respiratory failure, unspecified whether with hypoxia or hypercapnia Status: Acute Assessment and Plan: Has been on O2 long standing, at home 2 L a minute at rest and 4 L with exertion. 07/26 Remains on high flow NC with 50L and 85% FIO2 with sats 90%. Minimal clinical improvement in his symptoms. Patient admitted 07/16/20 with 6 month history of worsening nose bleeds, mouth ulcers and wrosening vision. Saw ENT on 05/24/20 who gave prednisone and referred to [facility] rheumatology (scheduled in 09/25 per patient). Now with worsening pulmonary infiltrates, hypoxemic respiratory failure despite broad spectrum antibiotics(vanco, ceftriaxone/cefep[howard, azithro), SARS negative, diuresis (cumulative minus 7.6 liters since admission) and high dose solumedrol (40 Q 6 from 07/20 to 07/25 and 40 Q 12 now. He denies any hemoptysis. I will repeat CT scan today. Recommend transfer to [facility] for additional rhuematology opinion, possible bronchoscopy with biopsies and or open lung biopsy to assess hypoxic respiratory failure with worsening infiltrates despite antibiotics, diuresis and high dsoe steroids. I spoke with Dr. Lorenzana who will contact [facility], [facility] also contacted and [facility] 07/27 Unchanged clinically, remains hypoxic with worsening alveolar and interstial infiltrates despite antibiotics, steroids and diuresis. Possible CTDS or vasculitis unresponsive to steroids. Agree with transfer to [facility] or [place] for rheumatology consult and additional work up. (2) Community acquired pneumonia: Qualifiers: Laterality: unspecified laterality Qualified Code(s): J18.9 - Pneumonia, unspecified organism Code(s): J18.9 - Pneumonia, unspecified organism Status: Acute Assessment and Plan: He has a RUL infiltrate, was on 4 rounds of antibiotics for sinus infections before admission to the hospital He has persistent elevated WBC 17.8 K, is on same amounts of O2 compared to usual amount at home, 2-4 L Sputum is unremarkable. He has bilateral upper lobe infiltrates, same high O2 requirements. No sputum results. Sputum remains discolored, grayish and thick. Continues to receive cefepime and vancomycin. Ur antigen for S pneumococcus is negative. SARS negative. I think bacterial pneumonia is less likley in this patient (see above). (3) Chronic obstructive pulmonary disease, unspecified: Code(s): J44.9 - Chronic obstructive pulmonary disease, unspecified Status: Acute Assessment and Plan: Mild per PFTs in December; clinically moderate to severe. Continue bronchodilator therapy.Mild centrilobular upper lobe emphysema on CT scan 07/19/20. Continue albuterol and ipratroprium nebs Q 6 for now. On soluedrol 40 Q 12 for now. Subjective Date/time seen: 07/27/20 11:13 Interval history: 07/24/20 17:33 Patient seen in f/u for pneumonia, acute hypoxemic respiratory failure. He has COPD, chronic respiratory failure on O2 at home 2 L/min at rest, 4 L/min with exertion, admitted July 15 with pneumonia with worsening hypoxemia. He remains on high-flow nasal cannula in IMU 232. He is alert, on High flow 81% and 60 L/min. His breathing is not labored. He is responsive. He is coughing less often and sputum does not look as bad. 07/26 My first patient encounter. Remains on high flow NC with 50L and 85% FIO2 with sats 90%. Minimal clinical improvement in his symptoms. Patient admitted 07/16/20 with 6 month history of worsening nose bleeds, mouth ulcers and wrosening vision. Saw ENT on 05/24/20 who gave prednisone and referred to [facility] (scheduled in 09/25 per patient). Nopw with worsening pulmonary infi
[2020-07-27 12:32] LABS: Glucose Point of Care 297 mg/dl (65-105)
--- NOTE | 2020-07-27 13:54 | PM.IMPN ---
Progress Note: A&P Assessment and Plan (1) Community acquired pneumonia: Qualifiers: Laterality: unspecified laterality Qualified Code(s): J18.9 - Pneumonia, unspecified organism Code(s): J18.9 - Pneumonia, unspecified organism Status: Acute Assessment and Plan: Patient presents with SOB and WBC 13K but no fevers. CRP and procalcitonin levels normal. CT chest on admisison showing patchy ground glass opacities in the bilateral upper lobes and small bilateral pleural effusions. PCR for COVID negative 07/16 and 07/21. He was initially on azithromycin and ceftriaxone and this was changed to cefepime 07/18/20. He has been on Vanco since admission 07/16. BCx negative. WBC elevated but currently on Solumedrol 60mg IV Q12h. Pulm following. CT Chest 07/26 reviewed showing significant progression of patchy bilateral airspace disease and moderate (R>L) pleural effusions. Since no significant improvement, pulmonary concerned that this is more likely connective tissue disorder and recommended transfer for bronch and possible biopsy. Still no bed at [place]. Continue current care. (2) Acute exacerbation of chronic obstructive pulmonary disease: Code(s): J44.1 - Chronic obstructive pulmonary disease with (acute) exacerbation Status: Acute Assessment and Plan: As above. Symbicort started (3) Acute and chronic respiratory failure: Code(s): J96.20 - Acute and chronic respiratory failure, unspecified whether with hypoxia or hypercapnia Status: Acute Assessment and Plan: Due to above. ABG 7.46/50.7/67.6 on BiPAP on 07/22. CXR reviewed without much change but slowly improving. [place] to have PNA but minimal cough and procalcitonin normal. MBS 07/20 showing patient can do well with mince and moist but had difficulty with pills. Pills to be crushed. Echo showing EF 65-70% with diastolic dysfunction and moderate MR. Consider shunt but unlikely given the lung findings. Consider intermittent aspiration. BNP 1270 on admission so consider CHF as well and treated with IV Lasix with good results but no change in CXR findings. Na better. Continue BiPAP at night as patient allows. Continue current IV abx. He remains on Solu-Medrol. Continue ST. Pulmonary was consulted and appreciate their input. Wean O2 as tolerated (4) Fall: Code(s): W19.XXXA - Unspecified fall, initial encounter Status: Acute Assessment and Plan: Patient was found on the ground and states he hit his back and head on 07/19. Neuro exam was completely normal at the time; no change with neuro exam. CT of the brain and a CT spine were negative for acute pathology. No rib fracture by x-ray. He has been having confusion at night but normally AOx4 in the morning. Continue PT/OT and place bed alarm on the patient while in bed. (5) Hyponatremia: Code(s): E87.1 - Hypo-osmolality and hyponatremia Status: Acute Assessment and Plan: Na dropped to 121 on 07/18 from 134 on admission. He has a hx of hyponatremia ranging from 125-135. Urine Na <5. Not on home diuretics but is on Cymbalta. Legionella negative. Normal saline x 1L given and Na has improved to 133. Follow. (6) Diabetes mellitus: Qualifiers: Diabetes mellitus complication status: with hyperglycemia Diabetes mellitus custodial insulin use: unspecified ocean transportation intermediary insulin use status Diabetes mellitus type: type 2 Qualified Code(s): E11.65 - Type 2 diabetes mellitus with hyperglycemia Code(s): E11.9 - Type 2 diabetes mellitus without complications Status: Chronic Assessment and Plan: A1c 9.3 last month. The patient's blood glucose was reviewed on 07/27 Glucose was low at times and meal time insulin stopped and Lantus dose decreased. Glucose improved so Lantus resumed. Glucose still elevated now so will advance lantus again. Continue AccuCheks covering with sliding scale. Hypoglycemia protoco
[2020-07-27 15:49] LABS: Glucose Point of Care 335 mg/dl (65-105)
[2020-07-27] MEDS: QUEtiapine FUMARATE 25 MG TABLET PO (20:08)
[2020-07-27] MEDS: IMIPRAMINE HCL 25 MG TABLET 50 MG PO (20:08)
[2020-07-27] MEDS: SENNOSIDES 8.6 MG TABLET PO (20:11)
[2020-07-27] MEDS: INSULIN GLARGINE (*BKC) 100 UNITS/ML 40 UNITS SUB-Q (20:16)
[2020-07-27 20:22] LABS: Glucose Point of Care 331 mg/dl (65-105)
[2020-07-28] VITALS (27 sets, daily range): BP systolic 145–161; BP diastolic 67–83; PULSE 59–88; RESP 16–24; TEMP 36.2–36.8; O2SAT 90–100
[2020-07-28] MEDS: ALBUTEROL SULFATE NEB 2.5 MG/0.5 ML INH INHALATION ×4 (03:15→20:50)
[2020-07-28] MEDS: IPRATROPIUM BR 0.02% INH SOLN 0.5 MG/2.5 ML VIAL INHALATION ×4 (03:15→20:56)
[2020-07-28 05:00] LABS: Basophils Percent Auto 0.1 % (0.2-1.2); Hematocrit 33.6 % (42.0-52.0); Hemoglobin 10.4 g/dL (14.0-18.0); Immature Granulocyte Absolute 0.22 K/mm3 (0.00-0.031); Immature Granulocyte Percent A 1.2 % (0-0.5); Lymphocytes Absolute Auto 0.94 K/mm3 (0.9-3.2); Mean Corpuscular Hemoglobin 24.9 pg (26-34); Mean Corpuscular Volume 80.4 fl (80-100); Mean Platelet Volume 9.8 fl (7.4-10.4); Monocytes Percent Auto 5.2 % (2.6-8.5); Neutrophils Absolute Auto 16.6 K/mm3 (1.3-6.7); Neutrophils Percent Auto 88.5 % (45.5-73.1); Platelet Count Result 262 k/mm3 (150-375); Red Blood Count 4.18 M/mm3 (4.6-6.20); Red Cell Distribution Width 14.6 % (11.5-14.5); White Blood Count 18.7 K/mm3 (4.5-10.0)
[2020-07-28 05:16] LABS: Albumin Level 2.6 g/dL (3.5-5.1); Anion Gap 2 mmol/L (8-16); Blood Urea Nitrogen 28 mg/dL (9-20); Calcium 8.3 mg/dL (8.4-10.2); Carbon Dioxide 35 mmol/L (22-30); Chloride 97 mmol/L (98-107); Estimated CRCL calculation 106 ml/min; Estimated Glomerular Filt Rate > 60; Glucose 244 mg/dL (75-110); Magnesium 1.7 mg/dL (1.6-2.3); Phosphorus 2.9 mg/dL (2.5-4.5); Potassium 3.7 mmol/L (3.4-5.0); Sodium 134 mmol/L (137-145)
[2020-07-28] MEDS: VANCOMYCIN HCL 1,500 MG in SODIUM CHLORIDE 0.9% IV 500 ML 250 MG IVPB (05:39)
[2020-07-28] MEDS: methylPREDNISolone SOD SUCC 125 MG VIAL 60 MG IV PUSH (05:40)
[2020-07-28 07:32] LABS: Glucose Point of Care 219 mg/dl (65-105)
[2020-07-28] MEDS: INSULIN ASPART (*BKC) 100 UNITS/ML SUB-Q ×3 (08:06→17:56)
[2020-07-28] MEDS: amLODIPine BESYLATE 5 MG TABLET 10 MG PO (08:20)
[2020-07-28] MEDS: APIXABAN 5 MG TABLET PO ×2 (08:20→21:13)
[2020-07-28] MEDS: carvediloL 25 MG TABLET BY MOUTH ×2 (08:21→21:13)
[2020-07-28] MEDS: LORATADINE 10 MG TABLET PO (08:22)
[2020-07-28] MEDS: CYANOCOBALAMIN 1,000 MCG TABLET 1000 MCG PO (08:22)
[2020-07-28] MEDS: SILVERGEL (ELTA) 45 ML 1 APPLIC TOPICAL (08:23)
[2020-07-28] MEDS: MUPIROCIN 2% OINT 22 GM TUBE 1 APPLIC TOPICAL ×2 (08:23→17:21)
--- NOTE | 2020-07-28 10:37 | PM.PNPUL ---
Progress Note: A&P Assessment and Plan (1) Acute and chronic respiratory failure: Code(s): J96.20 - Acute and chronic respiratory failure, unspecified whether with hypoxia or hypercapnia Status: Acute Assessment and Plan: Has been on O2 long standing, at home 2 L a minute at rest and 4 L with exertion. 07/26 Remains on high flow NC with 50L and 85% FIO2 with sats 90%. Minimal clinical improvement in his symptoms. Patient admitted 07/16/20 with 6 month history of worsening nose bleeds, mouth ulcers and wrosening vision. Saw ENT on 05/24/20 who gave prednisone and referred to [facility] rheumatology (scheduled in 09/25 per patient). 05/21 KAMALA negative, PR3 Ab negative and MPO Ab negative. Now with worsening pulmonary infiltrates, hypoxemic respiratory failure despite broad spectrum antibiotics(vanco, ceftriaxone/cefep[howard, azithro), SARS negative, diuresis (cumulative minus 7.6 liters since admission) and high dose solumedrol (40 Q 6 from 07/20 to 07/25 and 40 Q 12 now. He denies any hemoptysis. I will repeat CT scan today. Recommend transfer to [facility] for additional rhuematology opinion, possible bronchoscopy with biopsies and or open lung biopsy to assess hypoxic respiratory failure with worsening infiltrates despite antibiotics, diuresis and high dsoe steroids. I spoke with Dr. Lorenzana who will contact [facility], [place] [facility] Unchanged clinically, remains hypoxic with worsening alveolar and interstial infiltrates despite antibiotics, steroids and diuresis. Possible CTDS or vasculitis unresponsive to steroids, may require additional immunosuppressants. Agree with transfer to [facility] or [place] for rheumatology consult and additional work up. 07/28 Unchanged clinically, remains hypoxic with worsening alveolar and interstial infiltrates despite antibiotics, steroids and diuresis. Minimal improvemtn in oxygenation and CXR. Possible CTDS or vasculitis unresponsive to steroids, may require additional immunosuppressants. CCP, KAMALA and GBM Ab sent. Urine histo and blasto Ab and hypersensitivity assay sent. Agree with transfer to [facility] or [place] for rheumatology consult and additional work up. (2) Community acquired pneumonia: Qualifiers: Laterality: unspecified laterality Qualified Code(s): J18.9 - Pneumonia, unspecified organism Code(s): J18.9 - Pneumonia, unspecified organism Status: Acute Assessment and Plan: He has a RUL infiltrate, was on 4 rounds of antibiotics for sinus infections before admission to the hospital He has persistent elevated WBC 17.8 K, is on same amounts of O2 compared to usual amount at home, 2-4 L Sputum is unremarkable. He has bilateral upper lobe infiltrates, same high O2 requirements. No sputum results. Sputum remains discolored, grayish and thick. Continues to receive cefepime and vancomycin. Ur antigen for S pneumococcus is negative. SARS negative. I think bacterial pneumonia is less likley in this patient (see above). 07/28 day 14 broad spectrum antibiotics and will DC today. (3) Chronic obstructive pulmonary disease, unspecified: Code(s): J44.9 - Chronic obstructive pulmonary disease, unspecified Status: Acute Assessment and Plan: Mild per PFTs in December; clinically moderate to severe. Continue bronchodilator therapy.Mild centrilobular upper lobe emphysema on CT scan 07/19/20. Continue albuterol and ipratroprium nebs Q 6 for now. On soluedrol 40 Q 12 for now. Subjective Date/time seen: 07/28/20 10:37 Interval history: 07/26 My first patient encounter. Remains on high flow NC with 50L and 85% FIO2 with sats 90%. Minimal clinical improvement in his symptoms. Patient admitted 07/16/20 with 6 month history of worsening nose bleeds, mouth u
[2020-07-28 11:06] LABS: Glucose Point of Care 347 mg/dl (65-105)
[2020-07-28] MEDS: LIDOCAINE HCL 1% PF INJ 5 ML VIAL INFILTRATE (13:20)
--- NOTE | 2020-07-28 15:51 | PM.IMPN ---
Progress Note: A&P Assessment and Plan (1) Community acquired pneumonia: Qualifiers: Laterality: unspecified laterality Qualified Code(s): J18.9 - Pneumonia, unspecified organism Code(s): J18.9 - Pneumonia, unspecified organism Status: Acute Assessment and Plan: Patient presents with SOB and WBC 13K but no fevers. CRP and procalcitonin levels normal. CT chest on admisison showing patchy ground glass opacities in the bilateral upper lobes and small bilateral pleural effusions. PCR for COVID negative 07/16 and 07/21. He was initially on azithromycin and ceftriaxone and this was changed to cefepime 07/18/20. He has been on Vanco since admission 07/16. BCx negative. WBC elevated but currently on Solumedrol 60mg IV Q12h. Pulm following. CT Chest 07/26 reviewed showing significant progression of patchy bilateral airspace disease and moderate (R>L) pleural effusions. Since no significant improvement, pulmonary concerned that this is more likely connective tissue disorder and recommended transfer for bronch and possible biopsy. Still no bed at [place]. Abx stopped 07/28; begin to wean steroids. Continue current care otherwise. (2) Acute exacerbation of chronic obstructive pulmonary disease: Code(s): J44.1 - Chronic obstructive pulmonary disease with (acute) exacerbation Status: Acute Assessment and Plan: As above. Symbicort started (3) Acute and chronic respiratory failure: Code(s): J96.20 - Acute and chronic respiratory failure, unspecified whether with hypoxia or hypercapnia Status: Acute Assessment and Plan: Due to above. ABG 7.46/50.7/67.6 on BiPAP on 07/22. CXR reviewed without much change but slowly improving. [place] to have PNA but minimal cough and procalcitonin normal. MBS 07/20 showing patient can do well with mince and moist but had difficulty with pills. Pills to be crushed. Echo showing EF 65-70% with diastolic dysfunction and moderate MR. Consider shunt but unlikely given the CXR findings. Consider intermittent aspiration. BNP 1270 on admission so consider CHF as well and treated with IV Lasix with good results but minimal change in CXR findings. Continue BiPAP at night as patient allows. He is currently on Solu-Medrol. Abx stopped today. Continue ST. Pulmonary following and appreciate their input. Wean O2 as tolerated. (4) Fall: Code(s): W19.XXXA - Unspecified fall, initial encounter Status: Acute Assessment and Plan: Patient was found on the ground and states he hit his back and head on 07/19. Neuro exam was completely normal at the time; no change with neuro exam. CT of the brain and a CT spine were negative for acute pathology. No rib fracture by x-ray. He has been having confusion at night but normally AOx4 in the morning. Continue PT/OT and place bed alarm on the patient while in bed. (5) Hyponatremia: Code(s): E87.1 - Hypo-osmolality and hyponatremia Status: Acute Assessment and Plan: Na 134 on admission but dropped to 121 on 07/18. He has a hx of hyponatremia ranging from 125-135. Urine Na <5. Not on home diuretics but is on Cymbalta which was held. Legionella negative. Normal saline x 1L given and Na has improved to 134. Follow. (6) Diabetes mellitus: Qualifiers: Diabetes mellitus complication status: with hyperglycemia Diabetes mellitus group home insulin use: unspecified group home insulin use status Diabetes mellitus type: type 2 Qualified Code(s): E11.65 - Type 2 diabetes mellitus with hyperglycemia Code(s): E11.9 - Type 2 diabetes mellitus without complications Status: Chronic Assessment and Plan: A1c 9.3 last month. The patient's blood glucose was reviewed on 07/28 Glucose was low at times and meal time insulin stopped and Lantus dose decreased. Glucose improved so Lantus resumed. Glucose still elevated so lantus has been elevated. Continue AccuCheks c
[2020-07-28 16:42] LABS: Glucose Point of Care 366 mg/dl (65-105)
[2020-07-28] MEDS: polyethylene glycoL 3350 17 GM POWD.PACK PO (17:20)
[2020-07-28] MEDS: BISACODYL 10 MG SUPPOSITORY RECTAL (17:20)
[2020-07-28 19:31] LABS: Anti Glomerular Basement Memb <1.0 AI (<1.0)
[2020-07-28 20:26] LABS: Glucose Point of Care 265 mg/dl (65-105)
[2020-07-28] MEDS: IMIPRAMINE HCL 25 MG TABLET 50 MG PO (21:13)
[2020-07-28] MEDS: QUEtiapine FUMARATE 25 MG TABLET PO (21:13)
[2020-07-28] MEDS: ACETAMINOPHEN 325 MG TABLET 650 MG PO (21:17)
[2020-07-28] MEDS: SENNOSIDES 8.6 MG TABLET PO (21:18)
[2020-07-28] MEDS: INSULIN GLARGINE (*BKC) 100 UNITS/ML 40 UNITS SUB-Q (21:18)
[2020-07-28] MEDS: CENTRAL LINE FLUSH 10 ML IV PUSH (21:29)
[2020-07-29] VITALS (18 sets, daily range): BP systolic 147–172; BP diastolic 58–99; PULSE 53–88; RESP 18–22; TEMP 36.2–36.6; O2SAT 92–100
[2020-07-29] MEDS: IPRATROPIUM BR 0.02% INH SOLN 0.5 MG/2.5 ML VIAL INHALATION ×3 (02:55→13:11)
[2020-07-29] MEDS: ALBUTEROL SULFATE NEB 2.5 MG/0.5 ML INH INHALATION ×3 (02:55→13:11)
[2020-07-29] MEDS: CENTRAL LINE FLUSH 10 ML IV PUSH (05:04)
[2020-07-29 05:13] LABS: Basophils Percent Auto 0.1 % (0.2-1.2); Eosinophils Absolute Auto 0.4 K/mm3 (0-0.3); Eosinophils Percent Auto 1.9 % (0-4.4); Hematocrit 31.4 % (42.0-52.0); Hemoglobin 10.1 g/dL (14.0-18.0); Immature Granulocyte Absolute 0.15 K/mm3 (0.00-0.031); Immature Granulocyte Percent A 0.7 % (0-0.5); Lymphocytes Absolute Auto 1.78 K/mm3 (0.9-3.2); Lymphocytes Percent Auto 8.8 % (18.3-44.2); Mean Corpuscular HGB Conc 32.2 g/dl (32-36); Mean Corpuscular Hemoglobin 25.1 pg (26-34); Mean Corpuscular Volume 78.1 fl (80-100); Mean Platelet Volume 9.9 fl (7.4-10.4); Monocytes Absolute Auto 1.5 K/mm3 (0.1-0.6); Monocytes Percent Auto 7.5 % (2.6-8.5); Neutrophils Absolute Auto 16.3 K/mm3 (1.3-6.7); Platelet Count Result 246 k/mm3 (150-375); Red Blood Count 4.02 M/mm3 (4.6-6.20); Red Cell Distribution Width 14.6 % (11.5-14.5); White Blood Count 20.2 K/mm3 (4.5-10.0)
[2020-07-29 05:29] LABS: Anion Gap 2 mmol/L (8-16); Blood Urea Nitrogen 19 mg/dL (9-20); Calcium 8.1 mg/dL (8.4-10.2); Carbon Dioxide 35 mmol/L (22-30); Chloride 97 mmol/L (98-107); Estimated CRCL calculation 122 ml/min; Estimated Glomerular Filt Rate > 60; Glucose 112 mg/dL (75-110); Magnesium 1.6 mg/dL (1.6-2.3); Potassium 3.5 mmol/L (3.4-5.0); Sodium 134 mmol/L (137-145)
[2020-07-29 07:33] LABS: Glucose Point of Care 91 mg/dl (65-105)
[2020-07-29] MEDS: APIXABAN 5 MG TABLET PO (09:16)
[2020-07-29] MEDS: amLODIPine BESYLATE 5 MG TABLET 10 MG PO (09:16)
[2020-07-29] MEDS: FUROSEMIDE 40 MG TABLET PO (09:16)
[2020-07-29] MEDS: predniSONE 20 MG TABLET 40 MG PO (09:16)
[2020-07-29] MEDS: carvediloL 25 MG TABLET BY MOUTH (09:16)
[2020-07-29] MEDS: LORATADINE 10 MG TABLET PO (09:16)
[2020-07-29] MEDS: CYANOCOBALAMIN 1,000 MCG TABLET 1000 MCG PO (09:16)
[2020-07-29] MEDS: polyethylene glycoL 3350 17 GM POWD.PACK PO (09:16)
[2020-07-29] MEDS: MUPIROCIN 2% OINT 22 GM TUBE 1 APPLIC TOPICAL (09:17)
--- NOTE | 2020-07-29 11:46 | PCDIET ---
Nutrition Follow-Up Complete: Nutrition Diagnosis: Obesity related to undesirable food choices as evidenced by a BMI of 32.3. Nutrition Goal: Patient to meet estimated nutritional needs. Goal in progress. Patient consuming 75-100% of recorded meals, but reports primarily consuming full liquid items, such as soup and pudding, due to not having dentures. Also c/o being limited by fluid restriction. Recommend downgrading from soft and bite size diet to minced and moist diet which patient also feels would be helpful. Protein rich foods reviewed and encouraged. Recommend continuing Glucerna Shake (220kcal, 10g protein) BID - noted MD increased from 1x to 2x daily. Would also suggest liberalizing fluid restriction to 1800-2000mL per day. Last recorded weight is 108 kg. Recommend obtaining new weight. Bowel Motility: Last documented BM on 07/28/20. Labs Reviewed: WBC (20.2), Hgb (10.1), Hct (31.4), Glu (112), Cr (0.6), Na (134), Ca (8.1) Meds Noted: Senna, Diamox, Coreg, Vitamin B12, Lantus, Albuterol, Lasix, Novolog, Atrovent, Norvasc, Dulcolax, Nystatin, Miralax, Prednisone Additional Notes: Corrected calcium was normal on 07/28/20. Sodium level improved. Abrasions to left first toe, left back and left knee. Buttocks also macerated. Will continue to monitor with same goal. Nutrition Monitoring and Evaluation: Will follow up in 5 days.
[2020-07-29 11:54] LABS: Glucose Point of Care 238 mg/dl (65-105)
[2020-07-29] MEDS: INSULIN ASPART (*BKC) 100 UNITS/ML SUB-Q (13:20)
--- NOTE | 2020-07-29 14:39 | PM.PNPUL ---
Progress Note: A&P Assessment and Plan (1) Acute and chronic respiratory failure: Code(s): J96.20 - Acute and chronic respiratory failure, unspecified whether with hypoxia or hypercapnia Status: Acute Assessment and Plan: Has been on O2 long standing, at home 2 L a minute at rest and 4 L with exertion. 07/26 Remains on high flow NC with 50L and 85% FIO2 with sats 90%. Minimal clinical improvement in his symptoms. Patient admitted 07/16/20 with 6 month history of worsening nose bleeds, mouth ulcers and wrosening vision. Saw ENT on 05/24/20 who gave prednisone and referred to [facility] rheumatology (scheduled in 09/25 per patient). 05/21 KAMALA negative, PR3 Ab negative and MPO Ab negative. Now with worsening pulmonary infiltrates, hypoxemic respiratory failure despite broad spectrum antibiotics(vanco, ceftriaxone/cefep[howard, azithro), SARS negative, diuresis (cumulative minus 7.6 liters since admission) and high dose solumedrol (40 Q 6 from 07/20 to 07/25 and 40 Q 12 now. He denies any hemoptysis. I will repeat CT scan today. Recommend transfer to [facility] for additional rhuematology opinion, possible bronchoscopy with biopsies and or open lung biopsy to assess hypoxic respiratory failure with worsening infiltrates despite antibiotics, diuresis and high dsoe steroids. I spoke with Dr. Lorenzana who will contact [facility], [place] also contacted and [facility] 07/27 Unchanged clinically, remains hypoxic with worsening alveolar and interstial infiltrates despite antibiotics, steroids and diuresis. Possible CTDS or vasculitis unresponsive to steroids, may require additional immunosuppressants. Agree with transfer to [facility] or [place] for rheumatology consult and additional work up. 07/28 Unchanged clinically, remains hypoxic with worsening alveolar and interstial infiltrates despite antibiotics, steroids and diuresis. Minimal improvemtn in oxygenation and CXR. Possible CTDS or vasculitis unresponsive to steroids, may require additional immunosuppressants. CCP, KAMALA and GBM Ab sent. Urine histo and blasto Ab and hypersensitivity assay sent. Agree with transfer to [facility] or [place] for rheumatology consult and additional work up. (2) Community acquired pneumonia: Qualifiers: Laterality: unspecified laterality Qualified Code(s): J18.9 - Pneumonia, unspecified organism Code(s): J18.9 - Pneumonia, unspecified organism Status: Acute Assessment and Plan: He has a RUL infiltrate, was on 4 rounds of antibiotics for sinus infections before admission to the hospital He has persistent elevated WBC 17.8 K, is on same amounts of O2 compared to usual amount at home, 2-4 L Sputum is unremarkable. He has bilateral upper lobe infiltrates, same high O2 requirements. No sputum results. Sputum remains discolored, grayish and thick. Continues to receive cefepime and vancomycin. Ur antigen for S pneumococcus is negative. SARS negative. I think bacterial pneumonia is less likley in this patient (see above). 07/28 day 14 broad spectrum antibiotics and will DC today. (3) Chronic obstructive pulmonary disease, unspecified: Code(s): J44.9 - Chronic obstructive pulmonary disease, unspecified Status: Acute Assessment and Plan: Mild per PFTs in December; clinically moderate to severe. Continue bronchodilator therapy.Mild centrilobular upper lobe emphysema on CT scan 07/19/20. Continue albuterol and ipratroprium nebs Q 6 for now. On soluedrol 40 Q 12 for now. Subjective Date/time seen: 07/29/20 14:39 Interval history: 07/26 My first patient encounter. Remains on high flow NC with 50L and 85% FIO2 with sats 90%. Minimal clinical improvement in his symptoms. Patient admitted 07/16/20 with 6 month history of worsening nose bleeds, mouth u
--- NOTE | 2020-07-29 15:14 | PM.TDS ---
Transfer Discharge Sum: Prov Provider Date of admission: 07/16/20 00:28 Primary care physician: Philip Stephenson DO Admitting clinician: Georgia Helms MD Consults: 07/16/20 Care Coordination Consult Routine Comment: Code status, patient states he wants DNR order Reason for Consult:: Advanced Directives 07/19/20 07:19 Consult to Physician Routine Comment: left vm with dr conte @[id number] with ([facility]) Consulting Provider: Annamaria Conte director call center sales/MD group to consult: pulmonology Reason for consultation: copd/Pna Has provider been notified: Yes Attending physician on discharge: Bud Lorenzana Discharging clinician: Bud Lorenzana Anticipated date of transfer: 07/29/20 Receiving physician/facility: [facility] DS: Admitting Diagnosis Admitting Diagnosis Admitting Diagnosis: Short of breath DS: Discharge Diagnosis Discharge Diagnosis (1) Community acquired pneumonia: Qualifiers: Laterality: unspecified laterality Qualified Code(s): J18.9 - Pneumonia, unspecified organism Code(s): J18.9 - Pneumonia, unspecified organism Status: Acute Assessment and Plan: Patient presented with SOB and WBC 13K but no fevers. CRP and procalcitonin levels normal. CT chest on admission showing patchy ground glass opacities in the bilateral upper lobes and small bilateral pleural effusions. PCR for COVID negative 07/16 and 07/21. He was initially on azithromycin and ceftriaxone and this was changed to cefepime 07/18/20. He was on Vancomycin since admission 07/16. BCx negative. WBC elevated but currently on Solumedrol. Pulmonary consulted. CT Chest 07/26 reviewed showing significant progression of patchy bilateral airspace disease and moderate (R>L) pleural effusions. Since no significant improvement, pulmonary concerned that this is more likely connective tissue disorder and recommended transfer for bronchoscopy and possible biopsy. Some improvement in his hypoxia. Bed became available at [facility] and patient was transferred in stable condition on 07/29/20. Spoke with daughter with patient permission and hospital course was discussed. (2) Acute exacerbation of chronic obstructive pulmonary disease: Code(s): J44.1 - Chronic obstructive pulmonary disease with (acute) exacerbation Status: Acute Assessment and Plan: As above. (3) Acute and chronic respiratory failure: Code(s): J96.20 - Acute and chronic respiratory failure, unspecified whether with hypoxia or hypercapnia Status: Acute Assessment and Plan: Due to above. ABG 7.46/50.7/67.6 on BiPAP on 07/22. CXR reviewed without much change but slowly improving. [place] to have PNA but minimal cough and procalcitonin normal. MBS 07/20 showing patient can do well with mince and moist but had difficulty with pills. Pills to be crushed. Echo showing EF 65-70% with diastolic dysfunction and moderate MR. Consider shunt but unlikely given the CXR findings. Consider intermittent aspiration. BNP 1270 on admission so consider CHF as well and treated with IV Lasix with good diuresis but minimal change in CXR findings. Continued BiPAP at night as patient allows. He was treated with Solu-Medrol and broad spectrum Abx. ST worked with patient. Pulmonary followed as well. (4) Fall: Code(s): W19.XXXA - Unspecified fall, initial encounter Status: Acute Assessment and Plan: Patient was found on the ground and states he hit his back and head on 07/19. Neuro exam was completely normal at the time; no change with serial neuro exam. CT of the brain and a CT spine were negative for acute pathology. No rib fracture by x-ray. He has been having confusion at night but normally AOx4 in the morning. He was started on low dose Seroquel and night time symptoms improved. He worked with PT/OT and was up to chair and walking short distances. (5) Hyponatremia: Code(s): E87.1
[2020-07-29 20:39] LABS: Anti Cyclic Citrullinated Pept <16 Units (<20)
[2020-07-29 23:32] LABS: ANCA Screen Negative (Negative)
[2020-08-02 15:30] LABS: Blastomyces Antibody Negative (Negative)
--- NOTE | 2020-08-03 10:35 | PC.NURSE ---
All following labs WNL: Anti CCPE Anti GBM ANCA Urine Histo Blasto Ab Dr. Lorenzana aware.
--- NOTE | 2020-08-11 10:29 | PC.NURSE ---
Hypersensitivity pnemonitis panel is negative. Dr. Harriett campoverde.
== END 2020-07-29 14:53 | disposition short-term general hospital (02) | DRG 193 ==
LOC: ANHED 07-16 00:33 → ANH3MED 07-16 03:32 → ANH3MEDSUR 07-19 16:09 → ANHIMU 07-28 11:22 → ANH3MED 07-30 11:40 → ANH3MEDSUR 07-30 11:40 → ANHIMU 07-30 11:40
PROVIDERS: Family Medicine; Internal Medicine; Internal Medicine Pulmonary Disease; Physician Assistant; Admitting Provider Internal Medicine; Emergency Provider Family Medicine; PCP Internal Medicine; Visit Provider Physician Assistant
DX: J18.9 Pneumonia, unspecified organism (principal); J96.21 Acute and chronic respiratory failure with hypoxia; E87.1 Hypo-osmolality and hyponatremia; B37.0 Candidal stomatitis; I48.20 Chronic atrial fibrillation, unspecified; J43.9 Emphysema, unspecified; Z20.822 Contact with and (suspected) exposure to COVID-19; K12.1 Other forms of stomatitis; E11.65 Type 2 diabetes mellitus with hyperglycemia; E11.621 Type 2 diabetes mellitus with foot ulcer; L97.529 Non-pressure chronic ulcer of other part of left foot with unspecified severity; E11.42 Type 2 diabetes mellitus with diabetic polyneuropathy; D64.9 Anemia, unspecified; N28.89 Other specified disorders of kidney and ureter; I10 Essential (primary) hypertension; N40.0 Benign prostatic hyperplasia without lower urinary tract symptoms; J32.9 Chronic sinusitis, unspecified; E78.5 Hyperlipidemia, unspecified; F41.9 Anxiety disorder, unspecified; R00.1 Bradycardia, unspecified; W01.198A Fall on same level from slipping, tripping and stumbling with subsequent striking against other object, initial encounter; Z79.01 Long term (current) use of anticoagulants; Z87.891 Personal history of nicotine dependence; Z99.81 Dependence on supplemental oxygen
CPT/HCPCS: 36415; 36569; 36600; 70450; 71045; 71046; 71100; 71250; 72125; 73620; 80048; 80053; 80069; 80076; 80202; 81001; 82375; 82607; 82746; 82805; 82948; 83050; 83520; 83615; 83735; 83880; 84100; 84145; 84295; 84300; 84439; 84443; 84480; 84484; 85025; 85027; 85610; 85652; 86021; 86140; 86200; 86331; 86430; 86606; 86609; 86612; 86703; 87040; 87385; 87449; 87899; 92526; 92610; 92611; 93005; 93306; 94002; 94003; 94640; 96365; 96367; 96375; 97110; 97116; 97161; 97165; 97530; 97535; 99285; A9270; C1751; C9803; G0432; J0456; J0692; J0696; J1100; J1450; J1630; J1650; J1815; J1940; J2060; J2405; J2930; J3370; J3420; J3475; J7030; J7040; J7512; U0003; U0005

== ENCOUNTER 2020-09-30 12:15 | Outpatient (CLI) | payer MEDICARE, SELFPAY ==
--- NOTE | 2020-09-30 16:05 | WPDSIXMINUTE ---
Six Minute Walk Procedure Procedure Performed Pulmonary Stress Test (6 min walk) Six Minute Walk This is a 6 minute walk test. The test was performed and interpreted in accordance with the 2014 ERS/ATS task force guidelines. The patient used a cane and a personal portable O2 concentrator with 2 L at rest and 4 L with activity. Findings: The patient's resting oxygen saturation with 2 L NC oxygen measured by pulse oximetry was 96% and her heart rate was 65 bpm. Patient ambulated wiht 4 L NC oxygen for 152 meters and oxygen saturation remained 88 to 98%. Heart rate at the end of the study was 90 bpm. There are no prior studies for comparison.
== END 2020-09-30 12:16 | disposition home or self-care (01) ==
PROVIDERS: PCP Internal Medicine; Visit Provider Internal Medicine
DX: J96.20 Acute and chronic respiratory failure, unspecified whether with hypoxia or hypercapnia (principal)
CPT/HCPCS: 94618

== ENCOUNTER 2021-12-22 07:21 | Observation (INO) | payer MEDICARE, SELFPAY ==
[2021-12-22] VITALS (9 sets, daily range): BP systolic 157–175; BP diastolic 75–97; PULSE 62–91; RESP 13–20; TEMP 36.2–36.3; O2SAT 97–100; BMI 29.6
--- NOTE | ~2021-12-22 | XR_ITS ---
EXAMINATION: XR knee LT 3V DATE: 12/22/2021 08:25 INDICATION: Left knee injury. Fall. TECHNIQUE: 3 views of left knee were obtained. COMPARISON: None. FINDINGS: Bone alignment is normal. No fracture. There is mild tricompartmental osteoarthritis charac terized by tiny osteophytes. No joint space narrowing. No knee joint effusion. IMPRESSION: 1. Mild left knee osteoarthritis. Reviewed, dictated and finalized at location A. [employer] LIFE
--- NOTE | ~2021-12-22 | XR_ITS ---
XR shoulder LT min 2V DATE: 12/22/2021 08:25 INDICATION: Fall. TECHNIQUE: 4 views COMPARISON: None FINDINGS: There is moderate inferior spurring at the left acromioclavicular joint. There is mild oste oarthritic spurring at the left glenohumeral joint. No fracture or dislocation, periosteal reaction or bone destruction or abnormal soft tissue calcifica tion. IMPRESSION: Left glenohumeral osteoarthritis and degenerative spurring of left acromial clavicular claudette int No fracture or dislocation Reviewed, dictated and finalized at location B. INSTALLER IMPRESSION: Left glenohumeral osteoarthritis and degenerative spurring of left acromial clavicular joint No fracture or dislocation
--- NOTE | ~2021-12-22 | CT_ITS ---
EXAMINATION: CT brain wo con INDICATION: Head injury COMPARISON: 07/19/2020 TECHNIQUE: Standard unenhanced head CT. The dose-length product (DLP) was 605.33 mGy-cm. The mA was a djusted according to patient size. Iterative reconstruction technique was employed. FINDINGS: There is no acute intraparenchymal hemorrhage. No evidence of mass lesion. No evidence of a cute infarction. There is mild periventricular and subcortical hypodensity probably related to small vessel ischemic disease. There is mild prominence of the sulci and ventricles related to cerebral atr ophy. Intracranial calcified cerebral atherosclerosis is noted. There are no extra-axial collections. There is no mass effect or midline shift. The orbits and soft tissues are unremarkable. There is mil d mucosal thickening of the paranasal sinuses. IMPRESSION: 1. No acute intracranial abnormality. 2. Age related findings. Reviewed, dictated and finalized at location F. NDANCE OFFICER
--- NOTE | ~2021-12-22 | XR_ITS ---
XR chest 2V DATE: 12/22/2021 08:25 INDICATION: Shortness of breath TECHNIQUE: AP and lateral views COMPARISON: 07/28/2020 portable AP chest FINDINGS: Mild cardiomegaly. Mild aortic unfolding. No hilar or mediastinal enlargement. No pulmonary infiltrate or consolidation, pleural effusion or pulmonary vascular congestion or pneumo thorax. IMPRESSION: Mild cardiomegaly. No active pulmonary disease Reviewed, dictated and finalized at location B. DEICER ELEMENT WINDER
--- NOTE | ~2021-12-22 | XR_ITS ---
EXAMINATION: XR hip LT min 3V w AP pelvis DATE: 12/22/2021 08:25 INDICATION: Left hip injury. Fall. TECHNIQUE: An anteroposterior view of the pelvis and 3 views of left hip were obtained. COMPARISON: None. FINDINGS: Bone alignment is normal. No fracture. There is severe lower lumbar spondylosis. There is m ild osteoarthritis of the hips. There are surgical clips in the scrotum. IMPRESSION: 1. Mild osteoarthritis of the hips. Reviewed, dictated and finalized at location A. ON SEED CULLER
--- NOTE | 2021-12-22 07:51 | ED.PSYCH ---
HPI - Psych General Chief Complaint: Psychiatric Symptoms Stated Complaint: suicidal thoughts Time Seen by Provider: 12/22/21 07:23 Source: patient and EMS Mode of arrival: EMS Limitations: no limitations History of Present Illness HPI Narrative: Patient was going down the steps, missed last 1 and fell landed on left side of his body. Complaining of left knee, left hip and left shoulder pain prior to arrival. Patient denies loss of consciousness, head injury, neck pain or back pain or any other injuries. Patient report that he was a scheduled for cornea surgery, unknown date, currently legally blind patient reports been living with his daughters off and on for years Related Data Home Medications Medication Instructions Recorded Confirmed cetirizine 10 mg tablet 10 mg PO DAILY PRN 08/20/20 12/01/21 cyclobenzaprine 10 mg tablet 10 mg PO TID PRN 08/20/20 12/01/21 Allergies Allergy/AdvReac Type Severity Reaction Status Date / Time coconut Allergy Severe headaches Verified 12/22/21 07:39 Iodinated Contrast Media Allergy Mild Unknown Verified 12/22/21 07:39 Contrast Media Allergy Unknown Unknown Uncoded 12/01/21 11:36 Review of Systems Review of Systems: All systems reviewed & are unremarkable except as noted in HPI and below PMFSH Past Medical History Medical History (Updated 12/22/21 @ 11:37 by Anju Louis MD) Anxiety Atrial fibrillation Paroxysmal BPH (benign prostatic hyperplasia) Diabetes mellitus Type 2 History of osteomyelitis Right heel History of pancreatitis Hyperlipidemia No statins just a high-fiber diet. Hypertension Surgical History Surgical History History of tonsillectomy History of vasectomy Family History Family History Mother Family history of malignant neoplasm of breast in first degree relative Depression Family history of thyroid disease Father Family history of type 2 diabetes mellitus Hypertension Sibling Alcoholic Heart disease Other Diabetes mellitus Grandparent Alcoholic Other Family history of cardiovascular disease Family history of congestive heart failure Family history of hearing loss Family history of malignant neoplasm Social History Social History Social History: The patient had 5 children in his is . He lives with his daughter and son-in-law on their 5 children. Patient does not have a power of state attorney and is a full code. Patient quit smoking about 40 years ago. 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 Smoking packs per day: 1.5 Smoking cigarettes per day: 30.0 Years smoked: 30 Smoking pack-years: 45.00 Smoking status: Former smoker Tobacco type: cigarettes Smokeless tobacco user: chewing tobacco and snuff Second hand tobacco smoke exposure: Yes Smoking end date: 02/05/81 Alcohol intake: never Substance use: never Substance use type: does not use Lack of Transportation: No Lack of Food: Never True Current Housing: I Have Housing Concerned About Future Housing: No Difficulty Paying Gas/Electric Bills: No Difficulty Paying for Meds: No Currently Unemployed: No Education: High School Diploma/GED Difficulty w/ Childcare or Family Care: No Gender identity (if verbalized by the patient): Male Spiritual care concerns: No Agree to blood products: Yes Exam Narrative: General appearance: Well-developed, well-nourished Skin: Normal color Head: Normocephalic, nontraumatic Eyes: Clear conjunctiva ENT: Oropharynx normal, ears normal, nose normal Neck: Supple, nontender Chest and respiratory: Airway patent, no respiratory distress, no accessory muscle use Heart: Regular rate/rhythm Abdomen: Soft, nontender, no organomegaly, quiet bowel sounds Vascular: Normal peripheral pulses, normal capillary refill. Musculoskeletal: Left kne
--- NOTE | 2021-12-22 07:52 | ECG_ITS ---
Measurements Intervals [place] Rate: 65 P: MS: 0 QRS: -69 QRSD: 161 T: 117 QT: 452 QTc: 470 Interpretive Statements ELECTRONIC VENTRICULAR PACEMAKER UNDERLYING ATRIAL FLUTTER/TACHYCARDIA BASELINE ARTIFACT- I, II, AVR, AVF, V6 NO FURTHER INTERPRETATION IS POSSIBLE ABNORMAL ECG COMPARED TO ECG 07/15/2020 18:48:12 ELECTRONIC VENTRICULAR PACEMAKER NOW PRESENT Electronically Signed On 12-22-2021 9:11:54 ASSISTANT READING TEACHER by Richi Giordano D.O.
--- NOTE | 2021-12-22 08:10 | PC.NURSE ---
SPOKE WITH VIVEK WILKES PT'S DAUGHTER AT [phone] WHO REPORTS THAT PT IS VERBALLY ABUSIVE TO HIS DAUGHTERS AND GRANDCHILDREN AND VERY MANIPULATIVE IN SITUATIONS. SHE STATES HE CAN'T CARE FOR HIMSELF AND SHE HAS MS AND CAN'T DRIVE. HER SISTER WHO WAS LETTING PATIENT STAY IN HER HOUSE IS NO LONGER WILLING TO LET HIM LIVE WITH THEM. SHE REQUESTS THAT WILDLIFE PROTECTOR CONSULT TO SEE IF PT CAN BE PLACED IN SHELTER SINCE HE IS UNABLE TO CARE FOR HIMSELF.
[2021-12-22 08:47] LABS: Acetaminophen < 10 ug/mL (10-30); Ethanol < 10 mg/dL (<10); Salicylate < 1.0 mg/dL (2-20)
[2021-12-22 08:48] LABS: Alanine Aminotransferase 21 U/L (6-50); Albumin Level 3.7 g/dL (3.5-5.1); Alkaline Phosphatase 148 U/L (38-126); Anion Gap 12 mmol/L (8-16); Aspartate Amino Transferase 21 U/L (17-59); Bilirubin,Total 0.5 mg/dL (0.2-1.3); Blood Urea Nitrogen 24 mg/dL (9-20); Calcium 8.8 mg/dL (8.4-10.2); Carbon Dioxide 35 mmol/L (22-30); Chloride 87 mmol/L (98-107); Estimated Glomerular Filt Rate 50; Glucose 216 mg/dL (65-110); Potassium 3.6 mmol/L (3.4-5.0); Sodium 134 mmol/L (137-145)
[2021-12-22 08:59] LABS: Basophils Absolute Auto 0.1 K/mm3 (0.0-0.1); Basophils Percent Auto 0.6 % (0.2-1.2); Eosinophils Absolute Auto 0.4 K/mm3 (0-0.3); Eosinophils Percent Auto 3.2 % (0-4.4); Hematocrit 38.6 % (42.0-52.0); Hemoglobin 12.3 g/dL (14.0-18.0); Immature Granulocyte Absolute 0.04 K/mm3 (0.00-0.031); Immature Granulocyte Percent A 0.3 % (0-0.5); Lymphocytes Absolute Auto 2.76 K/mm3 (0.9-3.2); Lymphocytes Percent Auto 21.8 % (18.3-44.2); Mean Corpuscular HGB Conc 31.9 g/dl (32-36); Mean Corpuscular Hemoglobin 25.9 pg (26-34); Mean Corpuscular Volume 81.4 fl (80-100); Mean Platelet Volume 10.3 fl (7.4-10.4); Neutrophils Absolute Auto 8.4 K/mm3 (1.3-6.7); Neutrophils Percent Auto 66.1 % (45.5-73.1); Platelet Count Result 244 k/mm3 (150-375); Red Blood Count 4.74 M/mm3 (4.6-6.20); Red Cell Distribution Width 13.4 % (11.5-14.5); White Blood Count 12.7 K/mm3 (4.5-10.0)
[2021-12-22 10:49] LABS: Appearance Urine Clear (Clear); Bilirubin Urine Negative (Negative); Blood Urine Negative (Negative); Color Urine Yellow (Yellow); Glucose Urine UA Negative (Negative); Ketones Urine Trace mg/dL (Negative); Leukocyte Esterase Ur Negative LEU/UL (Negative); Nitrate Urine Negative (Negative); Protein Urine Negative (Negative); Specific Grav Ur 1.015 (1.001-1.035); Urobilinogen Urine 0.2 mg/dL (<2.0); pH Urine 5.5 (5.0-9.0)
[2021-12-22 10:52] LABS: Add Urine Microscopic? NO
[2021-12-22] MEDS: SODIUM CHLORIDE 0.9% IV 1,000 ML 999 ML IV CONT ×2 (11:00)
[2021-12-22 11:09] LABS: Amphetamine Screen Urine Negative (Negative); Barbiturate Screen Urine Negative (Negative); Benzodiazepines Screen Urine Negative (Negative); Cannabinoid Screen Urine Negative (Negative); Cocaine Screen Urine Negative (Negative); Methadone Screen Urine Negative (Negative); Opiate Screen Urine Positive (Negative); Phencyclidine Screen Urine Negative (Negative)
[2021-12-22 11:43] LABS: Influenza A QL RT-PCR Negative (Negative); Influenza B QL RT-PCR Negative (Negative); SARS-CoV-2 RNA PCR Negative
--- NOTE | 2021-12-22 13:35 | PM.IMHP ---
H&P: HPI History of Present Illness Date/Time: 12/22/21 13:35 Chief Complaint: Psychiatric symptoms with suicidal thoughts. Narrative: This is a 71-year-old male who has been very weak and he was going down the steps he missed the last 1 and fell landed on the left side of his. The patient stated that he is living with his daughter and that his daughter can no longer take care of him. The patient stated he did not hit his head or lose consciousness. He has no complaints of neck pain or back pain. The patient stated that he is scheduled for cornea surgery unknown date patient is legally blind. The patient stated that he does not feel like committing suicide and has no plans for suicide. The patient stated that he was upset with his daughter and just said it out of anger. He does not have any plans to commit suicide. The patient has an elevated white count of 12.7 but consistently has an elevated white count. Sodium is 134. BUN is 24 creatinine is 1.4. His blood sugar was 216 and now 159. His last A1c was 6.7 on 10/14/2020. Patient was positive for opiates. Patient was given IV fluid x2 L in the emergency room. Shoulder x-ray was read as left glenohumeral osteoarthritis and degenerative spurring of left acromial clavicular joint no fracture dislocation. Left knee x-ray was read as mild left knee osteoarthritis. Hip and pelvis x-ray was read as mild osteoarthritis of the hips. Chest x-ray was read as mild cardiomegaly. No active pulmonary disease. The patient is being admitted to observation status on the date of service of 12/22/2021. Review of Systems Review of Systems: See HPI All systems reviewed & are unremarkable except as noted in HPI and below Constitutional: Constitutional: Reports as per HPI and Reports no additional constitutional complaints Eyes: Eyes: Reports as per HPI and Reports no additional eye complaints ENT: Reports system reviewed and no additional complaints, except as documented and Reports Normal hearing present Cardiovascular: Cardiovascular: Reports no additional cardiovascular complaints Respiratory: Respiratory: Reports no additional respiratory complaints and Reports no additional respiratory complaints Gastrointestinal: Gastrointestinal: Reports as per HPI and Reports no additional gastrointestinal complaints Musculoskeletal: Musculoskeletal: Reports no additional musculoskeletal complaints Integumentary/Breasts: Skin/Breast: Reports system reviewed and no additional complaints, except as docu and Reports as per HPI Neurologic: Reports system reviewed and no additional complaints, except as documented, Reports as per HPI and Reports Normal hearing present Psychiatric: Psychiatric: Reports no additional psychiatric complaints and Reports as per HPI Endocrine: Endocrine: Reports no additional endocrine complaints Hematologic/Lymphatic: Hematologic/Lymphatic: Reports no additional hematologic/lymphatic complaints Allergic/Immunologic: Allergic/Immunologic: Reports no additional allergic/immunologic complaints [facility] Past Medical History Medical History (Updated 12/22/21 @ 17:50 by Vandana Ayoub NP) Allergies Anxiety Atrial fibrillation Paroxysmal BPH (benign prostatic hyperplasia) Chronic obstructive pulmonary disease, unspecified Community acquired pneumonia Conjunctivitis Diabetes mellitus Type 2 History of osteomyelitis Right heel History of pancreatitis Hyperlipidemia No statins just a high-fiber diet. Hypertension Hyponatremia Mouth ulcer Nasal crusting Nausea On shelter drug therapy Oral thrush Recurrent sinus infections Suspected COVID-19 virus infection Toe ulcer due to DM Surgical History Surgical History History of tonsillectomy History of vasectomy Family History Family History Mother Family history of malignant neoplasm of breast in first deg
--- NOTE | 2021-12-22 14:18 | PC.NURSE ---
Attempted report. RN to call me back
--- NOTE | 2021-12-22 15:08 | ADMGEN ---
This patient, Del Schmitz, was admitted to [facility] Room 317-01. Patient/family oriented to hospital policies and general routines including ID bracelet, bed and alarms, visiting hours, pain management, procedures, bathroom and other care routines, personal items, smoking policy, room service/diet, and visiting hours. Information on how to activate the Rapid Response Team has been discussed. Patient/Family are encouraged to report perceived risks to care and to ask questions if they do not understand what they are told or what they should do.
[2021-12-22] MEDS: SODIUM CHLORIDE 0.9% IV 1,000 ML 125 ML IV CONT (16:26)
[2021-12-22 16:34] LABS: Glucose Point of Care 159 mg/dl (65-105)
--- NOTE | 2021-12-22 18:21 | PCCCNOTE ---
Met with patient while in the ED. patient has been living with family (daughters) whom are no longer able to care for him. he was brought in due to him verbally expressing that he was looking for his gun to kill himself. CC asked patient is he wants to commit suicide, patient adamantly stated NO, and stated that he only made those comments to get his daughters attention. CC does not feel that patient is suicidal. patient informed CC that he uses a walker, cane and home oxygen provided by [facility]. patient stated that he was looking in to [facility]. CC informed him that in order for insurance to cover, he would need to participate with PT/OT. patient agreeable to working with therapy. CC will continue to follow.
[2021-12-22] MEDS: carvediloL 6.25 MG TABLET PO (18:42)
[2021-12-22] MEDS: APIXABAN 5 MG TABLET PO (18:42)
[2021-12-22] MEDS: IMIPRAMINE HCL 25 MG TABLET 50 MG PO (20:55)
[2021-12-22] MEDS: PANTOPRAZOLE 40 MG TABLET PO (20:56)
[2021-12-22] MEDS: DULoxetine HCL 30 MG CAPSULE.DR 90 MG PO (20:56)
[2021-12-22] MEDS: ACETAMINOPHEN/CODEINE (*CRX) 300/30 MG TABLET 1 TAB PO (22:46)
[2021-12-22] MEDS: CODEINE SULFATE (*CRX) 30 MG TABLET PO (22:48)
[2021-12-22 23:58] LABS: Glucose Point of Care 185 mg/dl (65-105)
[2021-12-23] VITALS (7 sets, daily range): BP systolic 144–164; BP diastolic 57–72; PULSE 65–72; RESP 18–20; TEMP 36.1–36.8; O2SAT 97–100
--- NOTE | 2021-12-23 | ECHO_ITS ---
Patient Info Name: Del Schmitz Age: 71 years : 1950 Gender: Male Ht: 72 in Wt: 218 lbs BSA: 2.26 m2 HR: 65 bpm BP: 145 / 57 mmHg Heart Rhythm: Sinus Rhythm Technical Quality: Fair Exam Date: 12/23/2021 8:47 AM Exam Location: [facility] Patient Status: Inpatient Admit Date: 12/22/2021 Staff Ordering Physician: Vandana Ayoub NP Machine Cell Tuber: Veena Elliott RDCS Attending Provider: Cedrick Cheung MD Referring Physician: Mega DECKER; Exam Type: CA echo doppler color flow Study Info Indications - reported diastolic dysfunction Complete two-dimensional, color flow and Doppler transthoracic echocardiogram is performed. Summary 1. Complete two-dimensional, color flow and Doppler transthoracic echocardiogram is performed. 2. Left ventricular chamber dimension is normal. 3. Left ventricular systolic function is normal, estimated at 60-65%. 4. There is moderately increased left ventricular wall thickness. 5. The left ventricular diastolic function is abnormal. 6. E/e' 15 is elevated. 7. Left atrial chamber dimension is mildly enlarged. 8. The mitral valve has mildly calcified annulus. 9. There is mild mitral valve regurgitation. 10. No pulmonary hypertension, estimated pulmonary arterial systolic pressure is 22 mmHg. Left Ventricle E/e' 15 is elevated. Left ventricular chamber dimension is normal. Left ventricular systolic function is normal, estimated at 60-65%. There is moderately increased left ventricular wall thickness. The left ventricular diastolic function is abnormal. Right Ventricle Right ventricular systolic function is normal and with normal TAPSE 1.8 cm. Right ventricular chamber dimension is normal. Left Atria Left atrial chamber dimension is mildly enlarged. Right Atria Right atrial chamber dimension is normal. Aortic Valve The aortic valve is trileaflet. There is no aortic valve stenosis. There is no aortic valve regurgitation. Pulmonic Valve There is no pulmonic regurgitation. Mitral Valve The mitral valve has mildly calcified annulus. There is no mitral valve stenosis. There is mild mitral valve regurgitation. Tricuspid Valve There is no tricuspid valve regurgitation. No pulmonary hypertension, estimated pulmonary arterial systolic pressure is 22 mmHg. Pericardium/Pleural There is no pericardial effusion. Inferior Vena Cava Normal inferior vena cava with >50% collapse upon inspiration consistent with normal right atrial pressure, 5 mmHg. Aorta The aortic root size at the sinus of Valsalva is normal. Left Ventricular Outflow Tract Name Value Normal LVOT 2D LVOT Diameter 2.0 cm LVOT Doppler LVOT Peak Gradient 3 mmHg LVOT Mean Gradient 2 mmHg LVOT VTI 17 cm LVOT VTI/AV VTI Ratio 0.7 LVOT Stroke Volume 52 ml LVOT CO 3.2 l/min LVOT CI 1.4 l/min/m2 Pulmonic Valve
[2021-12-23] MEDS: TEMAZEPAM (*CRX) 15 MG CAPSULE PO ×2 (04:55→18:58)
[2021-12-23 08:13] LABS: Glucose Point of Care 154 mg/dl (65-105)
[2021-12-23 08:48] LABS: Alanine Aminotransferase 17 U/L (6-50); Alkaline Phosphatase 119 U/L (38-126); Anion Gap 10 mmol/L (8-16); Aspartate Amino Transferase 21 U/L (17-59); Bilirubin,Total 0.5 mg/dL (0.2-1.3); Blood Urea Nitrogen 14 mg/dL (9-20); Calcium 8.3 mg/dL (8.4-10.2); Carbon Dioxide 32 mmol/L (22-30); Chloride 94 mmol/L (98-107); Estimated CRCL calculation 59 ml/min; Estimated Glomerular Filt Rate > 60; Glucose 148 mg/dL (65-110); Magnesium 1.5 mg/dL (1.6-2.3); Potassium 3.4 mmol/L (3.4-5.0); Sodium 136 mmol/L (137-145)
[2021-12-23] MEDS: MAGNESIUM OXIDE 400 MG TABLET PO (09:17)
[2021-12-23] MEDS: APIXABAN 5 MG TABLET PO ×2 (09:17→18:19)
[2021-12-23] MEDS: PANTOPRAZOLE 40 MG TABLET PO ×2 (09:18→21:13)
[2021-12-23] MEDS: carvediloL 6.25 MG TABLET PO ×2 (09:18→18:19)
[2021-12-23] MEDS: INSULIN GLARGINE (*BKC) 100 UNITS/ML 40 UNITS SUB-Q (09:18)
[2021-12-23] MEDS: FUROSEMIDE 40 MG TABLET PO ×2 (09:18→18:19)
[2021-12-23] MEDS: SODIUM CHLORIDE 0.9% IV 1,000 ML 75 ML IV CONT (09:19)
[2021-12-23 10:10] LABS: Lactate Dehydrogenase 174 U/L (120-246)
--- NOTE | 2021-12-23 10:41 | PCPTNOTE ---
Per hospitalist, pt does not need to be on bed rest and PT OK to work with pt. RN aware.
--- NOTE | 2021-12-23 11:40 | PM.IMPN ---
Progress Note: A&P Assessment and Plan (1) LINETTE (acute kidney injury): Code(s): N17.9 - Acute kidney failure, unspecified Status: Acute Assessment and Plan: kidney function is improved. (2) Major depression: Code(s): F32.9 - Major depressive disorder, single episode, unspecified Status: Acute Assessment and Plan: Continue with Cymbalta (3) Legal blindness: Code(s): H54.8 - Legal blindness, as defined in [place] Status: Acute Assessment and Plan: -the patient stated that he has an upcoming surgery to his eyes. He is legally blind. (4) Hypoxia: Code(s): R09.02 - Hypoxemia Status: Acute Assessment and Plan: -the patient has chronic hypoxia and stated that he wears his oxygen at 2 L during the day and 4 L at night. (5) Hyponatremia: Code(s): E87.1 - Hypo-osmolality and hyponatremia Status: Acute Assessment and Plan: -patient is chronically low. He appears to be at the baseline. (6) Hypertension: Qualifiers: Hypertension type: unspecified Qualified Code(s): I10 - Essential (primary) hypertension Code(s): I10 - Essential (primary) hypertension Status: Acute Assessment and Plan: -Continue with Coreg. -losartan is on hold at this time due to the acute renal failure. -p.r.n. hydralazine.. (7) Grade I diastolic dysfunction: Code(s): I51.9 - Heart disease, unspecified Status: Acute Assessment and Plan: It was reported that the patient has diastolic dysfunction. The only echo that I was unable to find was on 12/16/2018. I was not able to find a recent report. An echo has been ordered. -continue with Coreg. -continue with Lasix but if his renal functions continue to worsen may consider stopping his Lasix. (8) Headache disorder: Code(s): R51 - Headache Status: Acute Assessment and Plan: -the patient has chronic pain and takes Cymbalta and uses codeine p.r.n.. 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 -sliding scale insulin -Hypo glycemic protocol. -Accu-Cheks AC and HS. -last hemoglobin A1c was 6.7 back in October of this year. (10) Depression: Code(s): F32.9 - Major depressive disorder, single episode, unspecified Status: Acute Assessment and Plan: -continue with Cymbalta -I spoke with the patient and he stated that he had an argument with his daughter and may have mention something about suicide but the patient assures me that he does not have any suicidal thoughts or any plans of suicide. -the patient may need outpatient counseling. -the patient is also on Tofranil (11) Chronic low back pain: Code(s): M54.5 - Low back pain; G89.29 - Other chronic pain Status: Acute Assessment and Plan: -the patient takes codeine and Cymbalta. -he is also on muscle relaxants. (12) Chronic GERD: Code(s): K21.9 - Gastro-esophageal reflux disease without esophagitis Status: Acute Assessment and Plan: -continue with PPI (13) BPH (benign prostatic hyperplasia): Code(s): N40.0 - Benign prostatic hyperplasia without lower urinary tract symptoms Status: Chronic Assessment and Plan: not currently on any medication for BPH. (14) Atrial fibrillation: Qualifiers: Atrial fibrillation type: unspecified Qualified Code(s): I48.91 - Unspecified atrial fibrillation Code(s): I48.91 - Unspecified atrial fibrillation Status: Acute Assessment and Plan: -The patient i
[2021-12-23 11:44] LABS: Glucose Point of Care 125 mg/dl (65-105)
[2021-12-23 16:35] LABS: Glucose Point of Care 134 mg/dl (65-105)
[2021-12-23] MEDS: ACETAMINOPHEN/CODEINE (*CRX) 300/30 MG TABLET 1 TAB PO (18:18)
[2021-12-23] MEDS: LIDOCAINE HCL 2% VISC SOLN 15 ML UDC 5 ML MUCOUS MEM (18:32)
[2021-12-23] MEDS: PHENOL/SOD PHENO SPRAY CHERRY (*BKC) 1 SPRAY MUCOUS MEM (18:34)
[2021-12-23] MEDS: CYCLOBENZAPRINE HCL 10 MG TABLET PO (21:12)
[2021-12-23] MEDS: IMIPRAMINE HCL 25 MG TABLET 50 MG PO (21:12)
[2021-12-23] MEDS: LORATADINE 10 MG TABLET PO (21:12)
[2021-12-23] MEDS: DULoxetine HCL 30 MG CAPSULE.DR 90 MG PO (21:12)
[2021-12-23 21:36] LABS: Glucose Point of Care 198 mg/dl (65-105)
[2021-12-24] VITALS (7 sets, daily range): BP systolic 153–167; BP diastolic 76–97; PULSE 60–71; RESP 16–20; TEMP 36.6–36.8; O2SAT 97–100
[2021-12-24] MEDS: carvediloL 6.25 MG TABLET PO ×2 (05:31→17:11)
--- NOTE | 2021-12-24 06:27 | PC.NURSE ---
Pt. asked nurse to store pt's wallet in closet in room. Wallet stored in the middle cabinet in room and locked for safety. Pt. told the location of wallet.
[2021-12-24 07:46] LABS: Glucose Point of Care 83 mg/dl (65-105)
[2021-12-24] MEDS: MAGNESIUM OXIDE 400 MG TABLET PO (09:27)
[2021-12-24] MEDS: PANTOPRAZOLE 40 MG TABLET PO ×2 (09:27→20:17)
[2021-12-24] MEDS: APIXABAN 5 MG TABLET PO ×2 (09:27→17:11)
[2021-12-24] MEDS: FUROSEMIDE 40 MG TABLET PO ×2 (09:27→17:11)
[2021-12-24] MEDS: INSULIN GLARGINE (*BKC) 100 UNITS/ML 20 UNITS SUB-Q (09:41)
[2021-12-24] MEDS: LIDOCAINE HCL 2% VISC SOLN 15 ML UDC 5 ML MUCOUS MEM ×2 (09:44→17:11)
--- NOTE | 2021-12-24 11:21 | P.PNIM_ITS ---
Progress Note: A&P Assessment and Plan (1) LINETTE (acute kidney injury): Code(s): N17.9 - Acute kidney failure, unspecified Status: Acute Assessment and Plan: kidney function is improved. (2) Major depression: Code(s): F32.9 - Major depressive disorder, single episode, unspecified Status: Acute Assessment and Plan: Continue with Cymbalta (3) Legal blindness: Code(s): H54.8 - Legal blindness, as defined in [place] Status: Acute Assessment and Plan: -the patient stated that he has an upcoming surgery to his eyes. He is legally blind. (4) Hypoxia: Code(s): R09.02 - Hypoxemia Status: Acute Assessment and Plan: -the patient has chronic hypoxia and stated that he wears his oxygen at 2 L during the day and 4 L at night. (5) Hyponatremia: Code(s): E87.1 - Hypo-osmolality and hyponatremia Status: Acute Assessment and Plan: -patient is chronically low. He appears to be at the baseline. (6) Hypertension: Qualifiers: Hypertension type: unspecified Qualified Code(s): I10 - Essential (primary) hypertension Code(s): I10 - Essential (primary) hypertension Status: Acute Assessment and Plan: -Continue with Coreg. -losartan is on hold at this time due to the acute renal failure. -p.r.n. hydralazine.. (7) Grade I diastolic dysfunction: Code(s): I51.9 - Heart disease, unspecified Status: Acute Assessment and Plan: It was reported that the patient has diastolic dysfunction. The only echo that I was unable to find was on 12/16/2018. I was not able to find a recent report. An echo has been ordered. -continue with Coreg. -continue with Lasix but if his renal functions continue to worsen may consider stopping his Lasix. (8) Headache disorder: Code(s): R51 - Headache Status: Acute Assessment and Plan: -the patient has chronic pain and takes Cymbalta and uses codeine p.r.n.. 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 -sliding scale insulin -Hypo glycemic protocol. -Accu-Cheks AC and HS. -last hemoglobin A1c was 6.7 back in October of this year. (10) Depression: Code(s): F32.9 - Major depressive disorder, single episode, unspecified Status: Acute Assessment and Plan: -continue with Cymbalta -I spoke with the patient and he stated that he had an argument with his da ughter and may have mention something about suicide but the patient assures me that he does not have any suicidal thoughts or any plans of suicide. -the patient may need outpatient counseling. -the patient is also on Tofranil (11) Chronic low back pain: Code(s): M54.5 - Low back pain; G89.29 - Other chronic pain Status: Acute Assessment and Plan: -the patient takes codeine and Cymbalta. -he is also on muscle relaxants. (12) Chronic GERD: Code(s): K21.9 - Gastro-esophageal reflux disease without esophagitis Status: Acute Assessment and Plan: -continue with PPI (13) BPH (benign prostatic hyperplasia): Code(s): N40.0 - Benign prostatic hyperplasia wi
[2021-12-24 11:32] LABS: Glucose Point of Care 186 mg/dl (65-105)
[2021-12-24] MEDS: SODIUM CHLORIDE 0.9% IV 1,000 ML 75 ML IV CONT (13:30)
[2021-12-24] MEDS: ACETAMINOPHEN/CODEINE (*CRX) 300/30 MG TABLET 1 TAB PO (15:05)
[2021-12-24 16:59] LABS: Glucose Point of Care 194 mg/dl (65-105)
[2021-12-24] MEDS: CYCLOBENZAPRINE HCL 10 MG TABLET PO (20:17)
[2021-12-24] MEDS: TEMAZEPAM (*CRX) 15 MG CAPSULE PO (20:17)
[2021-12-24] MEDS: IMIPRAMINE HCL 25 MG TABLET 50 MG PO (20:17)
[2021-12-24] MEDS: DULoxetine HCL 30 MG CAPSULE.DR 90 MG PO (20:18)
[2021-12-25] MEDS: LORATADINE 10 MG TABLET PO (04:13)
[2021-12-25 06:00] VITALS: BP 170/80; PULSE 65; RESP 20; TEMP 36.9; O2SAT 100
[2021-12-25 06:09] VITALS: PULSE 60
[2021-12-25] MEDS: carvediloL 6.25 MG TABLET PO (06:09)
[2021-12-25 07:55] LABS: Glucose Point of Care 131 mg/dl (65-105)
[2021-12-25 08:32] VITALS: O2SAT 100
[2021-12-25] MEDS: INSULIN GLARGINE (*BKC) 100 UNITS/ML 20 UNITS SUB-Q (08:32)
[2021-12-25] MEDS: PANTOPRAZOLE 40 MG TABLET PO (08:32)
[2021-12-25] MEDS: MAGNESIUM OXIDE 400 MG TABLET PO (08:32)
[2021-12-25] MEDS: APIXABAN 5 MG TABLET PO (08:32)
[2021-12-25] MEDS: FUROSEMIDE 40 MG TABLET PO (08:32)
[2021-12-25] MEDS: ACETAMINOPHEN/CODEINE (*CRX) 300/30 MG TABLET 1 TAB PO (08:37)
[2021-12-25] MEDS: CODEINE SULFATE (*CRX) 30 MG TABLET PO (08:38)
--- NOTE | 2021-12-25 10:43 | PM.DS ---
DS: Admitting Diagnosis Discharge Date December 25, 2021 Admitting Diagnosis failure to thrive DS: Discharge Diagnosis Discharge Diagnosis (1) LINETTE (acute kidney injury): Code(s): N17.9 - Acute kidney failure, unspecified Status: Acute Assessment and Plan: kidney function is improved. (2) Major depression: Code(s): F32.9 - Major depressive disorder, single episode, unspecified Status: Acute Assessment and Plan: Continue with Cymbalta (3) Legal blindness: Code(s): H54.8 - Legal blindness, as defined in [place] Status: Acute Assessment and Plan: -the patient stated that he has an upcoming surgery to his eyes. He is legally blind. (4) Hypoxia: Code(s): R09.02 - Hypoxemia Status: Acute Assessment and Plan: -the patient has chronic hypoxia and stated that he wears his oxygen at 2 L during the day and 4 L at night. (5) Hyponatremia: Code(s): E87.1 - Hypo-osmolality and hyponatremia Status: Acute Assessment and Plan: -patient is chronically low. He appears to be at the baseline. (6) Hypertension: Qualifiers: Hypertension type: unspecified Qualified Code(s): I10 - Essential (primary) hypertension Code(s): I10 - Essential (primary) hypertension Status: Acute Assessment and Plan: -Continue with Coreg. -losartan is on hold at this time due to the acute renal failure. -p.r.n. hydralazine.. (7) Grade I diastolic dysfunction: Code(s): I51.9 - Heart disease, unspecified Status: Acute Assessment and Plan: It was reported that the patient has diastolic dysfunction. The only echo that I was unable to find was on 12/16/2018. I was not able to find a recent report. An echo has been ordered. -continue with Coreg. -continue with Lasix but if his renal functions continue to worsen may consider stopping his Lasix. (8) Headache disorder: Code(s): R51 - Headache Status: Acute Assessment and Plan: -the patient has chronic pain and takes Cymbalta and uses codeine p.r.n.. 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 -sliding scale insulin -Hypo glycemic protocol. -Accu-Cheks AC and HS. -last hemoglobin A1c was 6.7 back in October of this year. (10) Depression: Code(s): F32.9 - Major depressive disorder, single episode, unspecified Status: Acute Assessment and Plan: -continue with Cymbalta -I spoke with the patient and he stated that he had an argument with his daughter and may have mention something about suicide but the patient assures me that he does not have any suicidal thoughts or any plans of suicide. -the patient may need outpatient counseling. -the patient is also on Tofranil (11) Chronic low back pain: Code(s): M54.5 - Low back pain; G89.29 - Other chronic pain Status: Acute Assessment and Plan: -the patient takes codeine and Cymbalta. -he is also on muscle relaxants. (12) Chronic GERD: Code(s): K21.9 - Gastro-esophageal reflux disease without esophagitis Status: Acute Assessment and Plan: -continue with PPI (13) BPH (benign prostatic hyperplasia): Code(s): N40.0 - Benign prostatic hyperplasia without lower urinary tract symptoms Status: Chronic Assessment and Plan: not currently on any medication for BPH. (14) Atrial fibrillation: Qualifiers: Atrial fibrillation type: unspecified Qualified Code(s): I48.91 - Unspecified atrial fibrillation Code(s)
[2021-12-25 11:55] LABS: Glucose Point of Care 128 mg/dl (65-105)
[2021-12-25 14:00] VITALS: BP 154/77; PULSE 71; RESP 18; TEMP 36.5; O2SAT 98
[2021-12-25 16:54] LABS: Glucose Point of Care 114 mg/dl (65-105)
--- NOTE | 2021-12-25 16:59 | PC.NURSE ---
Wallet belonging to patient was in room closet, RN confirmed wallet belonged to patient and placed it in belongings bag as requested by patient.
== END 2021-12-25 17:35 | disposition home or self-care (01) ==
LOC: ANHED 11:37 → ANH3MEDSUR 13:54
PROVIDERS: Nurse Practitioner; Admitting Provider Chiropractor; Emergency Provider Emergency Medicine; PCP Internal Medicine; Visit Provider Chiropractor
DX: M19.012 Primary osteoarthritis, left shoulder (principal); M16.0 Bilateral primary osteoarthritis of hip; M17.12 Unilateral primary osteoarthritis, left knee; W10.9XXA Fall (on) (from) unspecified stairs and steps, initial encounter; M54.50 Low back pain, unspecified; D72.829 Elevated white blood cell count, unspecified; N17.9 Acute kidney failure, unspecified; H54.8 Legal blindness, as defined in USA; Z95.0 Presence of cardiac pacemaker; F41.9 Anxiety disorder, unspecified; R09.02 Hypoxemia; F32.9 Major depressive disorder, single episode, unspecified; I48.91 Unspecified atrial fibrillation; N40.0 Benign prostatic hyperplasia without lower urinary tract symptoms; R51.9 Headache, unspecified; D64.9 Anemia, unspecified; E11.9 Type 2 diabetes mellitus without complications; K21.9 Gastro-esophageal reflux disease without esophagitis; E87.1 Hypo-osmolality and hyponatremia; E78.5 Hyperlipidemia, unspecified; J44.9 Chronic obstructive pulmonary disease, unspecified; I11.9 Hypertensive heart disease without heart failure; R94.31 Abnormal electrocardiogram [ECG] [EKG]; Z20.822 Contact with and (suspected) exposure to COVID-19; Z87.891 Personal history of nicotine dependence; Z79.1 Long term (current) use of non-steroidal anti-inflammatories (NSAID); Z79.01 Long term (current) use of anticoagulants; Z79.4 Long term (current) use of insulin; Z79.899 Other long term (current) drug therapy; Z83.3 Family history of diabetes mellitus; Z82.49 Family history of ischemic heart disease and other diseases of the circulatory system
CPT/HCPCS: 36415; 51701; 70450; 71046; 73030; 73502; 73562; 80053; 80307; 81003; 82728; 82948; 83615; 83735; 84443; 85025; 87636; 93005; 93306; 96360; 96361; 97161; 97165; 99285; A9270; G0378; J1815; J7030

== ENCOUNTER 2022-01-13 08:26 | Emergency (ER) | payer MEDICARE, SELFPAY ==
[2022-01-13] VITALS (10 sets, daily range): BP systolic 155–197; BP diastolic 61–106; PULSE 72–103; RESP 16–20; TEMP 36.5; O2SAT 95–100
--- NOTE | ~2022-01-13 | CT_ITS ---
EXAMINATION: CT brain & sinus wo con DATE: 01/13/2022 10:46 INDICATION: Headache. Nasal drainage, congestion. Sinus pressure. TECHNIQUE: Computed tomography (CT) of the head was performed without intravenous contrast. The mA wa s adjusted according to patient size. Iterative reconstruction technique was employed. Exam dose: 83 2.33 mGy-cm total exam DLP. COMPARISON: 12/22/2021 CT brain FINDINGS: Moderate central and cortical cerebral and cerebellar volume loss. Intracranial mass lesion or hemorrhage or cerebrovascular accident. No midline shift or mass effect. Bilateral carotid siphon internal carotid artery (2 mm calcifications. No subdural or epidural hemato ma. Small polyp or mucous retention cyst in the floor of the left maxillary sinus. The paranasal sinuses and mastoid air cells are otherwise unremarkable No fracture or bone destruction of the cranial vault. IMPRESSION: Cerebral atherosclerosis Moderate cerebral and cerebellar volume loss No acute intracranial finding or skull fracture Reviewed, dictated and finalized at [facility]. Reviewed, dictated and finalized at location [facility]. 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
[2022-01-13 09:49] LABS: Basophils Absolute Auto 0.1 K/mm3 (0.0-0.1); Basophils Percent Auto 0.5 % (0.2-1.2); Eosinophils Absolute Auto 0.2 K/mm3 (0-0.3); Eosinophils Percent Auto 1.7 % (0-4.4); Hematocrit 39.7 % (42.0-52.0); Hemoglobin 12.5 g/dL (14.0-18.0); Immature Granulocyte Absolute 0.05 K/mm3 (0.00-0.031); Immature Granulocyte Percent A 0.4 % (0-0.5); Lymphocytes Absolute Auto 1.73 K/mm3 (0.9-3.2); Lymphocytes Percent Auto 13.1 % (18.3-44.2); Mean Corpuscular HGB Conc 31.5 g/dl (32-36); Mean Corpuscular Hemoglobin 25.7 pg (26-34); Mean Corpuscular Volume 81.5 fl (80-100); Mean Platelet Volume 9.9 fl (7.4-10.4); Monocytes Absolute Auto 0.5 K/mm3 (0.1-0.6); Monocytes Percent Auto 3.8 % (2.6-8.5); Neutrophils Absolute Auto 10.7 K/mm3 (1.3-6.7); Neutrophils Percent Auto 80.5 % (45.5-73.1); Platelet Count Result 284 k/mm3 (150-375); Red Blood Count 4.87 M/mm3 (4.6-6.20); Red Cell Distribution Width 13.8 % (11.5-14.5); White Blood Count 13.3 K/mm3 (4.5-10.0)
[2022-01-13] MEDS: SODIUM CHLORIDE 0.9% IV 1,000 ML 999 ML IV CONT (09:50)
[2022-01-13] MEDS: ONDANSETRON INJ 4 MG/2 ML VIAL IV PUSH (09:50)
[2022-01-13] MEDS: hydrALAZINE HCL 20 MG/ML VIAL 10 MG IV PUSH ×2 (09:50→12:01)
[2022-01-13 09:59] LABS: Alanine Aminotransferase 20 U/L (6-50); Alkaline Phosphatase 152 U/L (38-126); Anion Gap 4 mmol/L (8-16); Aspartate Amino Transferase 24 U/L (17-59); Bilirubin,Total 0.6 mg/dL (0.2-1.3); Blood Urea Nitrogen 18 mg/dL (9-20); Calcium 8.8 mg/dL (8.4-10.2); Carbon Dioxide 38 mmol/L (22-30); Chloride 93 mmol/L (98-107); Estimated CRCL calculation 61 ml/min; Estimated Glomerular Filt Rate > 60; Glucose 95 mg/dL (65-110); Potassium 3.9 mmol/L (3.4-5.0); Sodium 135 mmol/L (137-145)
--- NOTE | 2022-01-13 10:39 | ED.GENADULT ---
HPI - General Adult General Chief complaint: Unspecified Stated complaint: right sided sinus pain and pressure Time Seen by Provider: 01/13/22 08:59 History of Present Illness HPI narrative: 71-year-old male presents to the emergency room complaints of right nostril pain. States pain has been going on intermittently for several years, and cannot explain why it is worsened today. Patient does use home oxygen for COPD. Patient also admits to frequent thrush infections in his mouth and his nose. Patient states the nostril pain radiates up into his right sinuses. Also admits to recent sinus congestion and postnasal drip. Related Data Home Medications Medication Instructions Recorded Confirmed cetirizine 10 mg tablet 10 mg PO DAILY PRN Allergy Symptoms 08/20/20 12/22/21 cyclobenzaprine 10 mg tablet 10 mg PO TID PRN muscle spasms 08/20/20 12/22/21 acetaminophen 300 mg-codeine 60 mg 1 tablet PO Q8H PRN Headache 12/22/21 12/22/21 tablet duloxetine 30 mg capsule,delayed 90 mg PO QPM 12/22/21 12/22/21 release imipramine HCl 50 mg tablet 50 mg PO HS 12/22/21 12/22/21 Allergies Allergy/AdvReac Type Severity Reaction Status Date / Time coconut Allergy Severe headaches Verified 01/13/22 08:27 Iodinated Contrast Media Allergy Mild Unknown Verified 01/13/22 08:27 Contrast Media Allergy Unknown Unknown Uncoded 01/13/22 08:27 Review of Systems Review of Systems: CONSTITUTIONAL: Denies fever, chills, or sweats. EYES: Denies visual changes, redness, or discharge. ENT: Reports sinus congestion, sore throat, right nostril pain CARDIOVASCULAR: Denies chest pain, palpitations, or edema. RESPIRATORY: Denies cough or dyspnea. GASTROINTESTINAL: Denies abdominal pain, nausea, vomiting, or diarrhea. GENITOURINARY: Denies dysuria or hematuria. SKIN: Denies rash or itching. MUSCULOSKELETAL: Denies back pain, joint pain, or myalgia. NEUROLOGIC: Reports headache PSYCHIATRIC: Denies anxiety or depression. [facility] Past Medical History Medical History Allergies Anxiety Atrial fibrillation Paroxysmal BPH (benign prostatic hyperplasia) Chronic obstructive pulmonary disease, unspecified Community acquired pneumonia Conjunctivitis Diabetes mellitus Type 2 History of osteomyelitis Right heel History of pancreatitis Hyperlipidemia No statins just a high-fiber diet. Hypertension Hyponatremia Mouth ulcer Nasal crusting Nausea On shelter drug therapy Oral thrush Recurrent sinus infections Suspected COVID-19 virus infection Toe ulcer due to DM Surgical History Surgical History History of tonsillectomy History of vasectomy Family History Family History Mother Family history of malignant neoplasm of breast in first degree relative Depression Family history of thyroid disease Father Family history of type 2 diabetes mellitus Hypertension Sibling Alcoholic Heart disease Other Diabetes mellitus Grandparent Alcoholic Other Family history of cardiovascular disease Family history of congestive heart failure Family history of hearing loss Family history of malignant neoplasm Social History Social History Social History: The patient has 5 children and his is . He lives with his daughter and son-in-law and their 5 children. 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 Patient quit smoking about 40 years ago. 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 Code status full code Smoking packs per day: 1.5 Smoking cigarettes per day: 30.0 Years smoked: 30 Smoking pack-years: 45.00 Smoking status: Former smoker Tobacco type: cigarettes Smokeless tobacco user: chewing tobacco and snuff Second hand tobacco smoke exposure: Yes Smoking end date: 02/05/81 Alcohol intake: never
--- NOTE | 2022-01-13 12:20 | PCCCNOTE ---
Approached by CAFE SERVER Adarsh Becerra about placement for patient. Called to daughter Leigh with no answer, Called to daughter Tayla. She states that patient needs [facility] care and he does have a Medicaid RIN # [id number], Group # [id number]. Per Tayla, there is no preference for facilities, but he is not to be discharged with family. If there is not a facility that will accept and he does not get admitted then care coordination can assist with a homeless detention. 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 Explained that this managed care director will work on finding him group home placement the the facilities that take Medicaid beds. [facility], [facility], and [facility]. Patient is agreeable. Called to Humble at [facility], he does have beds at [facility], but not in [facility] at this time. He is agreeable to look at referral. Called to Ronna at [facility], and Марина for [facility] and [facility]. Agreeable to a referral. Fax'd referrals to all faciliites. Updated provider and chargeback specialist Susie. Phone call received from Humble at [facility]- is able to accept at [facility] and most likely today. This managed care director to talk to family and the patient. PASSR completed, No level II required.
--- NOTE | 2022-01-13 13:08 | PC.NURSE ---
pt resting , vss, call light within reach
--- NOTE | 2022-01-13 13:20 | PCCCNOTE ---
Addendum entered by Kelly Tan RN 01/13/22 13:47: Called to Tayla, provided phone # and address for [facility], there is not an ETA yet for ambulance. Tayla is requesting a call when the patient leaves. This animal care taker is agreeable. Original Note: Phone call received from Cat in ED that patient will be discharged. Called to patient's daughter Tayla advised that patient has been accepted at [facility] in [place]. Tayla is agreeable for dc there and would like notification when he is leaving. Tayla requests ambulance transfer. Met with patient he is agreeable to dc to [facility] but would prefer the [place] location, Advised that this animal care taker will let them notify liason at [facility]. Called to Humble at [facility], and notified that patient and family are agreeable but that patient would like [place] when a bed is available. Humble verbalizes understanding. Phone # for report is [phone] and he does not need a covid swab unless symptomatic. Bedside RN Lashanda notified of dc to [facility] and provided with # phone for report. This animal care taker to notify dtr Tayla as requested
[2022-01-13 14:57] LABS: Influenza A QL RT-PCR Negative (Negative); Influenza B QL RT-PCR Negative (Negative); SARS-CoV-2 RNA PCR Negative
--- NOTE | 2022-01-13 16:10 | PCCCNOTE ---
Addendum entered by Kelly Tan RN 01/13/22 16:18: Called to [facility] advised of unsuccessful fax to [phone], alternate fax # [phone]. Original Note: Phone call received from FAISAL Machuca requesting COVID results. COVID negative. Attempted to fax to [phone] but unsuccessful. Fax'd successfully to [phone].
== END 2022-01-13 15:10 ==
PROVIDERS: Emergency Provider Nurse Practitioner Family; PCP Internal Medicine
DX: R62.7 Adult failure to thrive (principal); Z68.29 Body mass index [BMI] 29.0-29.9, adult; F41.9 Anxiety disorder, unspecified; F32.A Depression, unspecified; J44.9 Chronic obstructive pulmonary disease, unspecified; I10 Essential (primary) hypertension; I48.0 Paroxysmal atrial fibrillation; E11.9 Type 2 diabetes mellitus without complications; E78.5 Hyperlipidemia, unspecified; N40.0 Benign prostatic hyperplasia without lower urinary tract symptoms; Z99.81 Dependence on supplemental oxygen; Z87.01 Personal history of pneumonia (recurrent); Z87.891 Personal history of nicotine dependence; Z79.4 Long term (current) use of insulin; Z79.01 Long term (current) use of anticoagulants; I67.2 Cerebral atherosclerosis
CPT/HCPCS: 36415; 70450; 70486; 80053; 85025; 87636; 96361; 96365; 96375; 96376; 99284; J0131; J0360; J2405; J7030